=== PATIENT | male | born 1950 | race Caucasian/White ===

== ENCOUNTER 2020-06-11 12:03 | Inpatient (IN) | payer OTHER ==
[~2020-06-11] VITALS: Ht 185.5 cm; Wt 114.8 kg
--- NOTE | 2020-06-11 12:42 | ED Respiratory ---
General Chief Complaint: Respiratory Problems Stated Complaint: SOB; AMS Source: patient, police Exam Limitations: no limitations History of Present Illness Date Seen by Provider: Jun 11, 2020 Time Seen by Provider: 12:30 Initial Comments 69-year-old male presents with law enforcement from intermediate where he is been inmate for 4 years. Tested positive for COVID-19 about one week ago. Today noted to have "abnormal vital signs", low oxygen saturation. Patient without complaint of cough or shortness of air, but complains of heartburn. Initial oxygen saturations on room air fluctuate from mid 80s to low 90s on initial evaluation. Allergies and Home Medications Allergies Coded Allergies: No Known Drug Allergies (Unverified , 06/11/20) Home Medications Famotidine 20 Mg Tablet, 20 MG PO DAILY, (Reported) Hydrochlorothiazide 12.5 Mg Tablet, 12.5 MG PO BID, (Reported) Lisinopril 10 Mg Tablet, 10 MG PO BID, (Reported) Multivitamin 1 Each Tablet, 1 EACH PO DAILY, (Reported) Olanzapine 10 Mg Tablet, 10 MG PO HS, (Reported) Pantoprazole Sodium 40 Mg Tablet.dr, 40 MG PO BID, (Reported) Tamsulosin HCl 0.4 Mg Cap, 0.4 MG PO BID, (Reported) Patient Home Medication List Home Medication List Reviewed: Yes Review of Systems Review of Systems Constitutional: No chills, No dizziness, No fever, No malaise, No weakness EENTM: no symptoms reported Respiratory: no symptoms reported; No cough, No short of breath Cardiovascular: No chest pain, No syncope Gastrointestinal: No abdominal pain, No constipation, No diarrhea; heartburn; No vomiting Musculoskeletal: No back pain, No joint pain Past Halcnjo-Vhkhkl-Qygsls Hx Past Med/Social Hx: Reviewed Nursing Past Med/Soc Hx Patient Social History Recent Foreign Travel: No Contact w/Someone Who Travel: No Physical Exam Vital Signs - First Documented 06/11/20 12:15 Temp 35.8 Pulse 88 Resp 20 B/P (MAP) 96/69 (78) Pulse Ox 88 O2 Delivery Nasal Cannula O2 Flow Rate 2.00 Capillary Refill : Height: '" Weight: lbs. oz. kg; BMI Method: General Appearance: WD/WN, no apparent distress HEENT: PERRL/EOMI, normal ENT inspection Respiratory: chest non-tender, lungs clear, normal breath sounds Cardiovascular: regular rate, rhythm, no edema, no JVD Gastrointestinal: normal bowel sounds, non tender, soft Extremities: normal range of motion, non-tender Neurologic/Psychiatric: no motor/sensory deficits, alert, normal mood/affect Skin: normal color, warm/dry Focused Exam Lactate Level 06/11/20 12:33: Lactic Acid Level 1.34 Lactic Acid Level Laboratory Tests Test 06/11/20 12:33 Lactic Acid Level 1.34 MMOL/L (0.50-2.00) Progress/Results/Core Measures Suspected Sepsis SIRS Temperature: Pulse: Respiratory Rate: Laboratory Tests 06/11/20 12:33: White Blood Count 4.5 Blood Pressure / Mean: 06/11/20 12:33: Lactic Acid Level 1.34 Laboratory Tests 06/11/20 12:33: Creatinine 1.86H, Platelet Count 191, Total Bilirubin 0.4 Results/Orders Lab Results Laboratory Tests Test 06/11/20 12:33 Range/Units White Blood Count 4.5 4.3-11.0 10^3/uL Red Blood Count 4.34 L 4.35-5.85 10^6/uL Hemoglobin 12.7 L 13.3-17.7 G/DL Hematocrit 38 L 40-54 % Mean Corpuscular Volume 88 80-99 FL Mean Corpuscular Hemoglobin 29 25-34 PG Mean Corpuscular Hemoglobin Concent 33 32-36 G/DL Red Cell Distribution Width 13.9 10.0-14.5 % Platelet Count 191 130-400 10^3/uL Mean Platelet Volume 10.8 H 7.4-10.4 FL Immature Granulocyte % (Auto) 0 % Neutrophils (%) (Auto) 72 42-75 % Lymphocytes (%) (Auto) 14 12-44 % Monocytes (%) (Auto) 13 H 0-12 % Eosinophils (%) (Auto) 0 0-10 % Basophils (%) (Auto) 0 0-10 % Neutrophils # (Auto) 3.2 1.8-7.8 X 10^3 Lymphocytes # (Auto) 0.6 L 1.0-4.0 X 10^3 Monocytes # (Auto) 0.6 0.0-1.0 X 10^3 Eosinophils # (Auto) 0.0 0.0-0.3 10^3/uL Basophils # (Auto) 0.0 0.0-0.1 10^3/uL Immature Granulocyte # (Auto) 0.0 0.0-0.1 10^3/uL Sodium Level 133 L 135-145 MMOL/L Potassium Level 3.8 3.6-5.0 MMOL/L Chloride Level 97 L 98-107 MMOL/L Carbon Dioxide Level 21 21-32 MMOL/L Anion Gap 15 H 5-14 MMOL/L Blood Urea Nitrogen 32 H 7-18 MG/DL Creatinine 1.86 H 0.60-1.30 MG/DL Estimat Glomerular Filtration Rate 36 BUN/Creatinine Ratio 17 Glucose Level 144 H 70-105 MG/DL Lactic Acid Level 1.34 0.50-2.00 MMOL/L Calcium Level 7.8 L 8.5-10.1 MG/DL Corrected Calcium 8.4 L 8.5-10.1 MG/DL Total Bilirubin 0.4 0.1-1.0 MG/DL Aspartate Amino Transf (AST/SGOT) 38 H 5-34 U/L Alanine Aminotransferase (ALT/SGPT) 23 0-55 U/L Alkaline Phosphatase 72 40-136 U/L C-Reactive Protein 6.25 H <0.50 MG/DL Total Protein 6.6 6.4-8.2 GM/DL Albumin 3.3 3.2-4.5 GM/DL Micro Results Microbiology 06/11/20 Influenza Types A,B Antigen (DEBORAH) - Final, Complete My Orders Orders - NICOLE RAMIREZ DO Cbc With Automated Diff (06/11/20 12:35) Comprehensive Metabolic Panel (06/11/20 12:35) Influenza A And B Antigens (06/11/20 12:35) Lactic Acid Analyzer (06/11/20 12:35) Procalcitonin (Pct) (06/11/20 12:35) Chest 1 View Ap/Pa Only (06/11/20 12:35) Ed Iv/Invasive Line Start (06/11/20 12:35) Crp Fs (06/11/20 12:33) Dexamethasone Injection (Decadron Inje (06/11/20 13:15) Vital Signs/I&O 06/11/20 06/11/20 12:15 12:15 Temp 35.8 Pulse 88 Resp 20 B/P (MAP) 96/69 (78) Pulse Ox 88 O2 Delivery Nasal Cannula Room Air O2 Flow Rate 2.00 Capillary Refill : Diagnostic Imaging Diagonstic Imaging: Xray Plain Films/CT/US/NM/MRI: chest Comments IMP: patchy b/l airspace densities c/w pneumonia Departure Communication (Admissions) Time/Spoke to Admitting Phy: 13:15 Dr Delgado accepts for transfer/ admit to [facility] Impression Primary Impression: Pneumonia Qualified Codes: J18.9 - Pneumonia, unspecified organism Additional Impression: Hypoxia Disposition: ADMITTED INPATIENT Condition: Stable Admissions Decision to Admit Reason: Admit from ER (General) Decision to Admit/Date: Jun 11, 2020 Time/Decision to Admit Time: 13:00 NICOLE RAMIREZ DO Jun 11, 2020 12:42
[2020-06-11 12:44] LABS: BASOPHILS % (AUTO) 0 % (0-10); EOSINOPHILS % (AUTO) 0 % (0-10); HEMATOCRIT 38 % (40-54); HEMOGLOBIN 12.7 G/DL (13.3-17.7); LYMPHOCYTES # (AUTO) 0.6 X 10^3 (1.0-4.0); LYMPHOCYTES % (AUTO) 14 % (12-44); MEAN CORPUSCULAR HEMOGLOBIN 29 PG (25-34); MEAN CORPUSCULAR HGB CONC 33 G/DL (32-36); MEAN CORPUSCULAR VOLUME 88 FL (80-99); MEAN PLATELET VOLUME 10.8 FL (7.4-10.4); MONOCYTES # (AUTO) 0.6 X 10^3 (0.0-1.0); MONOCYTES % (AUTO) 13 % (0-12); NEUTROPHILS # (AUTO) 3.2 X 10^3 (1.8-7.8); NEUTROPHILS % (AUTO) 72 % (42-75); PLATELET COUNT 191 10^3/uL (130-400); WHITE BLOOD COUNT 4.5 10^3/uL (4.3-11.0)
--- NOTE | 2020-06-11 13:00 | NUR ---
REPORT GIVEN TO JAYY GONZALEZ.
--- NOTE | 2020-06-11 13:02 | Diagnostic Imaging Report ---
INDICATION: Shortness of breath and hypoxia. Time of exam 12:51 p.m. No prior studies are available for comparison. The heart size is normal. There are patchy airspace infiltrates in the periphery of the bilateral upper and lower lung worley suggestive of pneumonia. No effusion or pneumothorax is detected. IMPRESSION: Patchy bilateral airspace infiltrates consistent with pneumonia. Dictated by: Dictated on workstation # [id number]
[2020-06-11 13:05] LABS: ALBUMIN 3.3 GM/DL (3.2-4.5); BILIRUBIN,TOTAL 0.4 MG/DL (0.1-1.0); CALCIUM 7.8 MG/DL (8.5-10.1); CREATININE SERUM 1.86 MG/DL (0.60-1.30); POTASSIUM 3.8 MMOL/L (3.6-5.0); TOTAL PROTEIN 6.6 GM/DL (6.4-8.2)
[2020-06-11 15:31] VITALS: BP 94/59
[2020-06-11 15:35] VITALS: BP 94/54
[2020-06-11] MEDS ORDERED: ANTACID SUSP 30 ML UDC (MYLANTA) PO PRN (17:15)
[2020-06-11] MEDS ORDERED: diphenhydrAMINE 25 MG TAB (BENADRYL) PO PRN (17:15)
[2020-06-11] MEDS ORDERED: BISACODYL 10 MG SUPP (DULCOLAX) PR PRN (17:15)
[2020-06-11] MEDS ORDERED: ONDANSETRON 4 MG/2 ML (SDV) Z0FRAN IV PRN (17:15)
[2020-06-11] MEDS ORDERED: polyethylene glycoL POWDER 17 GM (MIRALAX) PACK PO PRN (17:15)
[2020-06-11] MEDS ORDERED: ONDANSETRON 4 MG (ZOFRAN) ORAL DISSOLVE TAB PO PRN (17:15)
[2020-06-11] MEDS: LACTATED RINGERS 1,000 ML IV SCH (17:50)
[2020-06-11] MEDS: ENOXAPARIN 40 MG/0.4 ML (LOVENOX) SYR SC SCH (17:51)
[2020-06-11 19:19] VITALS: BP 99/56
[2020-06-11] MEDS: DOCUSATE SODIUM 100 MG (COLACE) CAP PO SCH (20:49)
[2020-06-11] MEDS: SENNOSIDES 8.6 MG (SENOKOT) TAB PO SCH (20:49)
[2020-06-11] MEDS: MELATONIN 3 MG TABLET PO PRN (20:49)
[2020-06-11] MEDS: inSUlin ASPART (NovoLOG) 1 UNIT/0.01 ML (CHARGE PER UNIT) SC SCH (20:50)
[2020-06-11] MEDS: ACETAMINOPHEN 325 MG TABLET PO PRN (20:50)
[2020-06-11] MEDS ORDERED: LISI10TA2 PO (22:10)
[2020-06-11] MEDS ORDERED: MULT-1136 PO (22:10)
[2020-06-11] MEDS ORDERED: OLAN10TA19 PO (22:10)
[2020-06-11] MEDS ORDERED: FAMO-119 PO (22:10)
[2020-06-11] MEDS ORDERED: TMSL.4C PO (22:10)
[2020-06-11] MEDS ORDERED: HYDR12.56 PO (22:10)
[2020-06-11] MEDS ORDERED: PANT40TA52 PO (22:10)
[2020-06-12 00:02] VITALS: BP 104/58
[2020-06-12] MEDS: LACTATED RINGERS 1,000 ML IV SCH ×3 (02:34→21:37)
[2020-06-12 04:00] VITALS: BP 97/61
[2020-06-12] MEDS: inSUlin ASPART (NovoLOG) 1 UNIT/0.01 ML (CHARGE PER UNIT) SC SCH ×4 (05:48→21:27)
[2020-06-12 06:43] LABS: BASOPHILS % (AUTO) 0 % (0-10); EOSINOPHILS % (AUTO) 0 % (0-10); HEMATOCRIT 38 % (40-54); HEMOGLOBIN 12.5 g/dL (13.3-17.7); LYMPHOCYTES # (AUTO) 0.6 10^3/uL (1.0-4.0); LYMPHOCYTES % (AUTO) 19 % (12-44); MEAN CORPUSCULAR HEMOGLOBIN 30 pg (25-34); MEAN CORPUSCULAR HGB CONC 33 g/dL (32-36); MEAN CORPUSCULAR VOLUME 89 fL (80-99); MEAN PLATELET VOLUME 10.8 fL (9.0-12.2); MONOCYTES # (AUTO) 0.2 10^3/uL (0.0-1.0); MONOCYTES % (AUTO) 7 % (0-12); NEUTROPHILS # (AUTO) 2.4 10^3/uL (1.8-7.8); NEUTROPHILS % (AUTO) 73 % (42-75); PLATELET COUNT 189 10^3/uL (130-400); WHITE BLOOD COUNT 3.3 10^3/uL (4.3-11.0)
[2020-06-12 07:01] LABS: ALBUMIN 3.4 GM/DL (3.2-4.5)
[2020-06-12 07:02] LABS: POTASSIUM 3.8 MMOL/L (3.6-5.0)
[2020-06-12 07:03] LABS: CALCIUM 7.9 MG/DL (8.5-10.1)
[2020-06-12 07:04] LABS: TOTAL PROTEIN 6.3 GM/DL (6.4-8.2)
[2020-06-12 07:06] LABS: BILIRUBIN,TOTAL 0.4 MG/DL (0.1-1.0)
[2020-06-12 07:08] LABS: CREATININE SERUM 2.78 MG/DL (0.60-1.30)
[2020-06-12 08:00] VITALS: BP 119/56
[2020-06-12] MEDS ORDERED: AZITHROMYCIN 250 MG TAB (ZITHROMAX) PO ONE (08:15)
[2020-06-12] MEDS ORDERED: cefTRIAXone 1,000 MG IV (ROCEPHIN) VIAL ONE (08:26)
[2020-06-12] MEDS ORDERED: WATER (STERILE) FOR INJECTION 20 ML ONE (08:31)
[2020-06-12] MEDS: SENNOSIDES 8.6 MG (SENOKOT) TAB PO SCH ×2 (09:00→21:27)
[2020-06-12] MEDS ORDERED: LIDOCAINE JELLY 2% 6 ML SYRINGE ONE (10:23)
[2020-06-12] MEDS: DOCUSATE SODIUM 100 MG (COLACE) CAP PO SCH ×2 (10:36→21:27)
[2020-06-12] MEDS: cefTRIAXone FOR IV USE 2,000 MG in WATER (STERILE) FOR INJECTION 20 ML IV SCH (10:36)
[2020-06-12] MEDS ORDERED: dexAMETHasone 6 MG TAB (DECADRON) ONE (10:38)
[2020-06-12] MEDS: PANTOPRAZOLE 40 MG (PROTONIX) TAB PO SCH (10:46)
--- NOTE | 2020-06-12 11:16 | History & Physical-Hospitalist ---
History of Present Illness HPI/Chief Complaint Inderjit Menard is a 69-year-old incarcerated male with past medical history of hypertension, GERD, who presented from retirement after testing positive for COVID- 19 about a week ago and subsequently developed low oxygen saturations. He denies any shortness of breath. He denies any cough. He denies any fevers. He has not been able to smell or taste. He has been eating and drinking. He has been up and moving around. He reports that he had been having diarrhea previously but this is resolved. He denies any nausea or vomiting. He denies any abdominal pain. Source: patient Exam Limitations: no limitations Date Seen 06/12/20 Time Seen by a Provider: 09:40 Attending Physician Javier Ortiz MD PCP No,Local Physician Referring Physician Date of Admission Jun 11, 2020 at 14:56 Home Medications & Allergies Home Medications Reviewed patient Home Medication Reconciliation performed by pharmacy medication reconciliations physical therapy technician and/or nursing. Patients Allergies have been reviewed. Allergies Allergies Coded Allergies No Known Drug Allergies ([id number]/16/20) Past Xpqucmy-Lofzxq-Tedbba Hx Past Med/Social Hx: Reviewed Nursing Past Med/Soc Hx Patient Social History Alcohol Use: Denies Use Recreational Drug Use: No Smoking Status: Former Smoker Recent Hopitalizations: No Recent Infectious Disease Expo: Yes (COVID19) Seasonal Allergies Seasonal Allergies: No Past Medical History Cardiac: Hypertension Gastrointestinal: Gastroesophageal Reflux Review of Systems Constitutional: no symptoms reported EENTM: no symptoms reported Respiratory: no symptoms reported Cardiovascular: no symptoms reported Gastrointestinal: diarrhea Genitourinary: decreased output Musculoskeletal: no symptoms reported Skin: no symptoms reported Psychiatric/Neurological: No Symptoms Reported Physical Exam Physical Exam Vital Signs Vital Signs - First Documented 06/11/20 12:15 Temp 35.8 Pulse 88 Resp 20 B/P (MAP) 96/69 (78) Pulse Ox 88 O2 Delivery Nasal Cannula O2 Flow Rate 2.00 Capillary Refill : Less Than 3 Seconds Height, Weight, BMI Height: '" Weight: lbs. oz. kg; 33.36 BMI Method: General Appearance: No Apparent Distress, Obese HEENT: PERRL/EOMI, Pharynx Normal Neck: Normal Inspection, Supple Respiratory: Lungs Clear, Normal Breath Sounds, No Respiratory Distress Cardiovascular: Regular Rate, Rhythm, No Edema, No Murmur Gastrointestinal: Normal Bowel Sounds, Non Tender, Soft Extremity: Normal Inspection, Non Tender, No Pedal Edema Neurologic/Psychiatric: Alert, Oriented x3, No Motor/Sensory Deficits, Other (flat affect) Skin: Normal Color, Warm/Dry Results Results/Procedures Labs Laboratory Tests 06/11/20 12:33 06/12/20 06:20 Patient resulted labs reviewed. Imaging: Reviewed Imaging Report Assessment/Plan Admission Diagnosis Acute respiratory failure due to COVID-19 Admission Status: Inpatient Order (span 2 midnights) Reason for Inpatient Admission: Respiratory failure requiring oxygen ROMANA on CKD Assessment and Plan Acute respiratory failure due to COVID-19 Bilateral pneumonia tested positive about one week ago Chest xray with bilateral pneumonia Procalcitonin 0.38 requiring supplemental oxygen on arrival, on room air upon my examination Started on Decadron Not a candidate for Remdesivir due to normal O2 saturations Hold off on convalescent plasma with no hypoxia or dyspnea Started on Rocephin and Azithromycin for bacterial pneumonia Lovenox prophylactic Acute kidney injury superimposed on chronic kidney disease Unknown baseline creatinine Cr 1.86 on arrival, trended up to 2.78 this morning Begin IV fluids Obtain urine studies Place bhagat for accurate intake/output Avoid nephrotoxins HTN BP low normal Hold home meds GERD PPI Obesity BMI 33.4, clinically significant, no acute management needs DVT Prophylaxis: Lovenox Diagnosis/Problems Diagnosis/Problems (1) Acute respiratory failure due to COVID-19 Status: Acute (2) Bilateral pneumonia Status: Acute Qualifiers: Pneumonia type: due to unspecified organism Lung location: unspecified part of lung Qualified Codes: J18.9 - Pneumonia, unspecified organism (3) Acute kidney injury superimposed on chronic kidney disease Status: Acute (4) HTN (hypertension) Status: Chronic Qualifiers: Hypertension type: essential hypertension Qualified Codes: I10 - Essential (primary) hypertension (5) GERD (gastroesophageal reflux disease) Status: Chronic Qualifiers: Esophagitis presence: esophagitis presence not specified Qualified Codes: K21.9 - Gastro-esophageal reflux disease without esophagitis (6) Obesity (BMI 30.0-34.9) Status: Chronic Clinical Quality Measures DVT/VTE Risk/Contraindication: Risk Factor Score Per Nursin RFS Level Per Nursing on Admit: 4+=Very High JAVIER ORTIZ MD Jun 12, 2020 11:16
[2020-06-12 12:00] VITALS: BP 114/64
[2020-06-12 12:28] LABS: BILIRUBIN,URINE 1+ (NEGATIVE); CLARITY,URINE CLOUDY; COLOR,URINE YELLOW; GLUCOSE, URINE (UA) NEGATIVE (NEGATIVE); KETONES,URINE NEGATIVE (NEGATIVE); LEUKOCYTE ESTERASE ,URINE NEGATIVE (NEGATIVE); NITRITE,URINE NEGATIVE (NEGATIVE); PROTEIN,URINE NEGATIVE (NEGATIVE)
[2020-06-12 12:40] LABS: AMORPHOUS SEDIMENT,UR FEW AMOR URATES /LPF; BACTERIA,URINE MODERATE /HPF; WBC,URINE 0-2 /HPF
[2020-06-12 16:59] VITALS: BP 105/59
[2020-06-12] MEDS: ENOXAPARIN 40 MG/0.4 ML (LOVENOX) SYR SC SCH (17:55)
[2020-06-12] MEDS: MELATONIN 3 MG TABLET PO PRN (21:27)
[2020-06-13 00:25] VITALS: BP 100/67
[2020-06-13 05:47] LABS: BASOPHILS % (AUTO) 0 % (0-10); EOSINOPHILS % (AUTO) 0 % (0-10); HEMATOCRIT 34 % (40-54); HEMOGLOBIN 11.2 g/dL (13.3-17.7); LYMPHOCYTES # (AUTO) 0.6 10^3/uL (1.0-4.0); LYMPHOCYTES % (AUTO) 6 % (12-44); MEAN CORPUSCULAR HEMOGLOBIN 29 pg (25-34); MEAN CORPUSCULAR HGB CONC 33 g/dL (32-36); MEAN CORPUSCULAR VOLUME 87 fL (80-99); MEAN PLATELET VOLUME 11.3 fL (9.0-12.2); MONOCYTES # (AUTO) 0.8 10^3/uL (0.0-1.0); MONOCYTES % (AUTO) 7 % (0-12); NEUTROPHILS # (AUTO) 8.8 10^3/uL (1.8-7.8); NEUTROPHILS % (AUTO) 86 % (42-75); PLATELET COUNT 219 10^3/uL (130-400); WHITE BLOOD COUNT 10.3 10^3/uL (4.3-11.0)
[2020-06-13 06:06] LABS: ALBUMIN 2.9 GM/DL (3.2-4.5); BILIRUBIN,TOTAL 0.3 MG/DL (0.1-1.0); CALCIUM 7.6 MG/DL (8.5-10.1); CREATININE SERUM 2.25 MG/DL (0.60-1.30); POTASSIUM 4.1 MMOL/L (3.6-5.0); TOTAL PROTEIN 5.7 GM/DL (6.4-8.2)
[2020-06-13 06:21] LABS: ATYPICAL LYMPHOCYTES 2 %; BURR CELLS SLIGHT; HYPOCHROMASIA SLIGHT; LYMPHOCYTES % (MANUAL) 10 %; MICROCYTOSIS SLIGHT; MONOCYTES % (MANUAL) 6 %; NEUTROPHILS % (MANUAL) 82 %
[2020-06-13] MEDS: dexAMETHasone 6 MG TAB (DECADRON) PO SCH (06:25)
[2020-06-13] MEDS: inSUlin ASPART (NovoLOG) 1 UNIT/0.01 ML (CHARGE PER UNIT) SC SCH ×4 (06:25→22:24)
[2020-06-13] MEDS: cefTRIAXone FOR IV USE 2,000 MG in WATER (STERILE) FOR INJECTION 20 ML IV SCH (07:30)
[2020-06-13] MEDS: AZITHROMYCIN 250 MG TAB (ZITHROMAX) PO SCH (07:30)
[2020-06-13] MEDS: LACTATED RINGERS 1,000 ML IV SCH ×2 (07:30→17:25)
[2020-06-13] MEDS: SENNOSIDES 8.6 MG (SENOKOT) TAB PO SCH ×2 (07:30→20:20)
[2020-06-13] MEDS: DOCUSATE SODIUM 100 MG (COLACE) CAP PO SCH ×2 (07:30→20:20)
[2020-06-13] MEDS: PANTOPRAZOLE 40 MG (PROTONIX) TAB PO SCH (07:30)
[2020-06-13 08:00] VITALS: BP 114/76
--- NOTE | 2020-06-13 11:59 | Progress Note - Hospitalist ---
Subjective HPI/CC On Admission Date Seen by Provider: Jun 13, 2020 Time Seen by Provider: 10:40 Inderjit Menard is a 69-year-old incarcerated male with past medical history of hypertension, GERD, who presented from snf after testing positive for COVID- 19 about a week ago and subsequently developed low oxygen saturations. He de nies any shortness of breath. He denies any cough. He denies any fevers. He has not been able to smell or taste. He has been eating and drinking. He has been up and moving around. He reports that he had been having diarrhea previously but this is resolved. He denies any nausea or vomiting. He denies any abdominal pain. Subjective/Events-last exam He denies shortness of breath. He has been eating and drinking. He still has the bhagat in and is reluctant about it coming out. Focused Exam Lactate Level 06/11/20 12:33: Lactic Acid Level 1.34 Objective Exam Vital Signs Vital Signs Date Time Temp Pulse Resp B/P (MAP) Pulse Ox O2 Delivery O2 Flow Rate FiO2 06/13/20 08:00 36.6 77 20 114/76 (89) 95 High Flow N/C 8.00 Capillary Refill : NONELess Than 3 Seconds General Appearance: No Apparent Distress, WD/WN Respiratory: Lungs Clear, Normal Breath Sounds, No Respiratory Distress Cardiovascular: Regular Rate, Rhythm, No Edema, No Murmur Gastrointestinal: Normal Bowel Sounds, Non Tender, Soft Extremity: Normal Inspection, Non Tender, No Pedal Edema Neurologic/Psychiatric: Alert, Oriented x3, No Motor/Sensory Deficits, Other (flat affect) Skin: Normal Color, Warm/Dry Results/Procedures Lab Laboratory Tests 06/13/20 05:20 Patient resulted labs reviewed. Imaging: Reviewed Imaging Report Assessment/Plan Assessment and Plan Assess & Plan/Chief Complaint Acute respiratory failure due to COVID-19 Bilateral pneumonia Continue Decadron Not a candidate for Remdesivir due to normal O2 saturations Hold off on convalescent plasma with no hypoxia or dyspnea Continue Rocephin and Azithromycin for bacterial pneumonia Likely transition to oral antibiotics tomorrow Lovenox prophylactic Acute kidney injury superimposed on chronic kidney disease Unknown baseline creatinine Cr 1.86 on arrival, trended up to 2.78 yesterday, down to 2.25 today Continue IV fluids Remove bhagat Avoid nephrotoxins Elevated blood sugar Steroid induced hyperglycemia A1C pending SSI HTN BP low normal Hold home meds GERD PPI Obesity BMI 33.4, clinically significant, no acute management needs DVT Prophylaxis: Lovenox Diagnosis/Problems Diagnosis/Problems (1) Acute respiratory failure due to COVID-19 Status: Acute (2) Bilateral pneumonia Status: Acute Qualifiers: Pneumonia type: due to unspecified organism Lung location: unspecified part of lung Qualified Codes: J18.9 - Pneumonia, unspecified organism (3) Acute kidney injury superimposed on chronic kidney disease Status: Acute (4) HTN (hypertension) Status: Chronic Qualifiers: Hypertension type: essential hypertension Qualified Codes: I10 - Essential (primary) hypertension (5) GERD (gastroesophageal reflux disease) Status: Chronic Qualifiers: Esophagitis presence: esophagitis presence not specified Qualified Codes: K21.9 - Gastro-esophageal reflux disease without esophagitis (6) Obesity (BMI 30.0-34.9) Status: Chronic Clinical Quality Measures DVT/VTE Risk/Contraindication: Risk Factor Score Per Nursin RFS Level Per Nursing on Admit: 4+=Very High JAVIER ORTIZ MD Jun 13, 2020 11:59
--- NOTE | 2020-06-13 12:36 | NUR ---
DIANA RN FUNCTIONAL NURSE REMOVED [facility]MAN FOR THIS RN. PATIENT TOLERATED WELL.
[2020-06-13 16:15] VITALS: BP 111/55
[2020-06-13] MEDS: ENOXAPARIN 40 MG/0.4 ML (LOVENOX) SYR SC SCH (17:25)
[2020-06-13] MEDS: ACETAMINOPHEN 325 MG TABLET PO PRN (22:24)
[2020-06-13] MEDS: MELATONIN 3 MG TABLET PO PRN (22:29)
[2020-06-13 23:34] VITALS: BP 137/69
[2020-06-14] MEDS: LACTATED RINGERS 1,000 ML IV SCH (03:34)
[2020-06-14 04:26] LABS: BASOPHILS % (AUTO) 0 % (0-10); EOSINOPHILS % (AUTO) 0 % (0-10); HEMATOCRIT 33 % (40-54); HEMOGLOBIN 11.3 g/dL (13.3-17.7); LYMPHOCYTES # (AUTO) 0.6 10^3/uL (1.0-4.0); LYMPHOCYTES % (AUTO) 6 % (12-44); MEAN CORPUSCULAR HEMOGLOBIN 30 pg (25-34); MEAN CORPUSCULAR HGB CONC 34 g/dL (32-36); MEAN CORPUSCULAR VOLUME 87 fL (80-99); MEAN PLATELET VOLUME 11.1 fL (9.0-12.2); MONOCYTES # (AUTO) 0.8 10^3/uL (0.0-1.0); MONOCYTES % (AUTO) 8 % (0-12); NEUTROPHILS # (AUTO) 8.5 10^3/uL (1.8-7.8); NEUTROPHILS % (AUTO) 86 % (42-75); PLATELET COUNT 251 10^3/uL (130-400); WHITE BLOOD COUNT 9.9 10^3/uL (4.3-11.0)
[2020-06-14 04:34] LABS: ALBUMIN 3.1 GM/DL (3.2-4.5); POTASSIUM 3.9 MMOL/L (3.6-5.0)
[2020-06-14 04:35] LABS: CALCIUM 7.5 MG/DL (8.5-10.1)
[2020-06-14 04:37] LABS: TOTAL PROTEIN 5.7 GM/DL (6.4-8.2)
[2020-06-14 04:38] LABS: BILIRUBIN,TOTAL 0.3 MG/DL (0.1-1.0)
[2020-06-14 04:40] LABS: CREATININE SERUM 1.71 MG/DL (0.60-1.30)
[2020-06-14] MEDS: inSUlin ASPART (NovoLOG) 1 UNIT/0.01 ML (CHARGE PER UNIT) SC SCH ×2 (05:03→12:40)
[2020-06-14] MEDS: dexAMETHasone 6 MG TAB (DECADRON) PO SCH (05:56)
[2020-06-14 08:00] VITALS: BP 130/60
[2020-06-14] MEDS: AZITHROMYCIN 250 MG TAB (ZITHROMAX) PO SCH (08:52)
[2020-06-14] MEDS: PANTOPRAZOLE 40 MG (PROTONIX) TAB PO SCH (08:52)
[2020-06-14] MEDS: SENNOSIDES 8.6 MG (SENOKOT) TAB PO SCH (08:52)
[2020-06-14] MEDS: cefTRIAXone FOR IV USE 2,000 MG in WATER (STERILE) FOR INJECTION 20 ML IV SCH (08:52)
[2020-06-14] MEDS: DOCUSATE SODIUM 100 MG (COLACE) CAP PO SCH (08:53)
[2020-06-14] MEDS ORDERED: CEPH-507 PO (09:24)
[2020-06-14] MEDS ORDERED: AZIT250T12 PO (09:24)
--- NOTE | 2020-06-14 09:32 | Discharge Inst-Simple/Standard ---
Discharge Inst-Standard Discharge Medications New, Converted or Re-Newed RX: Transmitted to Pharmacy Patient Instructions/Follow Up Plan of Care/Instructions/FU: Please continue to take your medications as written. Please follow up with your primary care doctor to follow up this hospital stay. Activity as Tolerated: Yes Discharge Diet: No Restrictions Return to The Hospital For: Chest pain, fever, shortness of breath, abdominal pain, if you feel you are getting worse. Planned Outpatient Orders/Ref. Pneu Vac Indicated: Yes TIANA LIZARRAGA MD Jun 14, 2020 09:32
--- NOTE | 2020-06-14 09:51 | NUR ---
I WAS ABLE TO TALK TO A NURSE FROM [facility] AND G0T A CURRENT LIST OF MEDICATIONS THAT THEY FILL THERE. MULTI VITAMIN PANTOPRAZOLE 40MG TAMSULOSIN 0.4MG PEPCID 20MG THE MEDICATIONS GET FILLED AT THE LONGTERM UNLESS THEY DON'T HAVE THEM ON STOCK MEDS, IN THAT CASE THEY WOULD GET THEM FILLED AT [facility] IN [place].
--- NOTE | 2020-06-14 13:06 | Discharge Summary ---
Diagnosis/Chief Complaint Date of Admission Jun 11, 2020 at 14:56 Date of Discharge Discharge Date: Jun 14, 2020 Admission Diagnosis Acute respiratory failure due to COVID-19 Primary Care No,Local Physician Discharge Diagnosis (1) Acute respiratory failure due to COVID-19 Status: Acute (2) Bilateral pneumonia Status: Acute (3) Acute kidney injury superimposed on chronic kidney disease Status: Acute (4) HTN (hypertension) Status: Chronic (5) GERD (gastroesophageal reflux disease) Status: Chronic (6) Obesity (BMI 30.0-34.9) Status: Chronic Discharge Summary Discharge Physical Exam Allergies: Coded Allergies: No Known Drug Allergies (Unverified , 06/11/20) Vitals & I&Os Vital Signs Date Time Temp Pulse Resp B/P (MAP) Pulse Ox O2 Delivery O2 Flow Rate FiO2 06/14/20 08:00 36.9 84 18 130/60 (83) 92 Room Air 06/13/20 23:25 2.00 General Appearance: No Apparent Distress, Chronically ill Respiratory: Lungs Clear, No Respiratory Distress Cardiovascular: Regular Rate, Rhythm, No Murmur Neurologic/Psychiatric: Alert, Oriented x3 Hospital Course Pt was admitted due to acute kidney injury and COVID19. He was treated with IVF and did well. He had normal oxygen saturations and did not qualify for Remdesivir. He was treated with decadron and IV abx for presumed secondary bacterial pneumonia. He did well and his creatinine improved. He was discharged in stable and improved condition. Labs (last 24 hrs) Microbiology 06/11/20 Blood Culture - Preliminary, Resulted No growth 06/11/20 Influenza Types A,B Antigen (DEBORAH) - Final, Complete Patient resulted labs reviewed. Pending Labs Imaging: Reviewed Imaging Report Discussion & Recommendations Discharge Planning: >30 minutes discharge planning Discharge Home Medications: Active Scripts Active Keflex (Cephalexin) 500 Mg Capsule 500 Mg PO BID Azithromycin 250 Mg Tablet 250 Mg PO DAILY Reported Pepcid (Famotidine) 20 Mg Tablet 20 Mg PO DAILY Multivitamin 1 Each Tablet 1 Each PO DAILY Hydrochlorothiazide 12.5 Mg Tablet 12.5 Mg PO BID Pantoprazole Sodium 40 Mg Tablet.dr 40 Mg PO BID Flomax (Tamsulosin HCl) 0.4 Mg Cap 0.4 Mg PO BID Instructions to patient/family Please see electronic discharge instructions given to patient. Clinical Quality Measures DVT/VTE Risk/Contraindication: Risk Factor Score Per Nursin RFS Level Per Nursing on Admit: 4+=Very High Problem Qualifiers (1) Bilateral pneumonia: Pneumonia type: due to unspecified organism Lung location: unspecified part of lung Qualified Codes: J18.9 - Pneumonia, unspecified organism (2) HTN (hypertension): Hypertension type: essential hypertension Qualified Codes: I10 - Essential (primary) hypertension (3) GERD (gastroesophageal reflux disease): Esophagitis presence: esophagitis presence not specified Qualified Codes: K21.9 - Gastro-esophageal reflux disease without esophagitis TIANA LIZARRAGA MD Jun 14, 2020 13:06
== END 2020-06-14 14:00 | DRG 177 ==
LOC: ER FS 12:20 → 4TH 14:56
PROVIDERS: ADMIT Internal Medicine; ATTEND Internal Medicine
DX: U07.1 COVID-19 (principal); J12.89 Other viral pneumonia; J96.01 Acute respiratory failure with hypoxia; N17.9 Acute kidney failure, unspecified; I12.9 Hypertensive chronic kidney disease with stage 1 through stage 4 chronic kidney disease, or unspecified chronic kidney disease; N18.9 Chronic kidney disease, unspecified; K21.9 Gastro-esophageal reflux disease without esophagitis; E66.9 Obesity, unspecified; R73.9 Hyperglycemia, unspecified; Z87.891 Personal history of nicotine dependence; Z68.33 Body mass index [BMI] 33.0-33.9, adult; T38.0X5A Adverse effect of glucocorticoids and synthetic analogues, initial encounter
CPT/HCPCS: 36415; 71045; 80053; 81000; 82570; 82962; 83036; 83605; 83935; 84145; 84300; 84540; 85007; 85025; 85027; 86141; 87040; 87804

== ENCOUNTER 2020-06-14 23:54 | Emergency (ER) | payer OTHER ==
[~2020-06-14] VITALS: Ht 185.4 cm; Wt 97.5 kg
[~2020-06-14 23:54] MED LIST: AZIT250T12 PO; CEPH-507 PO; FAMO-119 PO; HYDR12.56 PO; LISI10TA2 PO; MULT-1136 PO; OLAN10TA19 PO; PANT40TA52 PO; TMSL.4C PO
[2020-06-15] MEDS ORDERED: NS IV 1000 ML 1,000 ML IV STA (00:10)
--- NOTE | 2020-06-15 00:14 | ED General ---
General Stated Complaint: CHEST PAIN Source of Information: Patient, Old Records, Police, RN/MD, RN Notes Reviewed Exam Limitations: Other (confusion) History of Present Illness Date Seen by Provider: Jun 15, 2020 Time Seen by Provider: 00:05 Initial Comments This patient presents to the emergency department several to 69-year-old male that complains of some confusion and concerns for palpitations and fever. Patient was diagnosed with COVID-19 approximately 2 weeks ago. Patient resides in the formerly [facility] half-way. Awaiting trial. Patient appears to be confused. protective officer states that the patient seems to be less talkative over the past couple hours. They state no fever at the half-way but upon arrival to the emergency Department did have a fever but 100.1. We'll do medical evaluation treatment is needed. Patient has no cough or no shortness of breath. Timing/Duration: 1-3 Hours Severity: Moderate Associated Systoms: Fever/Chills Allergies and Home Medications Allergies Coded Allergies: No Known Drug Allergies (Unverified , 06/11/20) Home Medications Azithromycin 250 Mg Tablet, 250 MG PO DAILY Prescribed by: TIANA LIZARRAGA on 06/14/20923 Cephalexin 500 Mg Capsule, 500 MG PO BID Prescribed by: TIANA LIZARRAGA on 06/14/20923 Famotidine 20 Mg Tablet, 20 MG PO DAILY, (Reported) Hydrochlorothiazide 12.5 Mg Tablet, 12.5 MG PO BID, (Reported) Multivitamin 1 Each Tablet, 1 EACH PO DAILY, (Reported) Pantoprazole Sodium 40 Mg Tablet.dr, 40 MG PO BID, (Reported) Tamsulosin HCl 0.4 Mg Cap, 0.4 MG PO BID, (Reported) Patient Home Medication List Home Medication List Reviewed: Yes Review of Systems Review of Systems Constitutional: no symptoms reported; No see HPI, No chills, No diaphoresis, No dizziness; fever; No malaise, No weakness, No weight gain, No weight loss, No other EENTM: No see HPI, No no symptoms reported, No ear discharge, No hearing loss, No ear pain, No blurred vision, No double vision, No eye pain, No tearing, No v ision loss, No dental problems, No hoarseness, No mouth pain, No mouth swelling, No epistaxis, No nose congestion, No nose pain, No throat pain, No throat swelling, No other Respiratory: No no symptoms reported, No see HPI, No cough, No dyspnea on exertion, No hemoptysis, No orthopnea, No phlegm, No short of breath, No stridor, No wheezing, No other Cardiovascular: No no symptoms reported, No see HPI, No chest pain, No edema, No Hx of Intervention, No palpitations, No syncope, No vascular heart diseas, No other Gastrointestinal: No RUQ, No LUQ, No RLQ, No LLQ, No no symptoms reported, No see HPI, No abdominal pain, No constipation, No diarrhea, No dysphagia, No hematemesis, No heartburn, No jaundice, No loss of appetite, No melena, No nausea, No vomiting, No other Genitourinary: No no symptoms reported, No see HPI, No decreased output, No discharge, No dysuria, No frequency, No hematuria, No hesitancy, No incontinence, No nocturia, No pain, No other Musculoskeletal: No no symptoms reported, No see HPI, No back pain, No gout, No joint pain, No joint swelling, No muscle pain, No muscle stiffness, No muscle cramps, No muscle twitching, No muscle weakness, No neck pain, No other Skin: No no symptoms reported, No see HPI, No change in color, No change in hair/nails, No dryness, No hx of skin cancer, No lesions, No lumps, No pruritus, No rash, No other Psychiatric/Neurological: See HPI, Other (confusion) All Other Systems Reviewed Negative Unless Noted: Yes Past Ghnugwn-Jcvhtu-Lveqno Hx Patient Social History Recent Foreign Travel: No Contact w/Someone Who Travel: No Recent Hopitalizations: No Seasonal Allergies Seasonal Allergies: No Past Medical History Surgeries: No Respiratory: Yes (COVID POSITIVE) Cardiac: Yes Hypertension Neurological: No Genitourinary: No Gastrointestinal: Yes Gastroesophageal Reflux Musculoskeletal: No Endocrine: No HEENT: No Cancer: No Psychosocial: No Integumentary: No Physical Exam Vital Signs Vital Signs - First Documented 06/14/20 23:56 Temp 37.9 Pulse 108 Resp 37 B/P (MAP) 156/91 (112) Pulse Ox 92 O2 Delivery Nasal Cannula Capillary Refill : Height, Weight, BMI Height: '" Weight: lbs. oz. kg; 33.36 BMI Method: General Appearance: No Apparent Distress, WD/WN HEENT: PERRL/EOMI, TMs Normal, Normal ENT Inspection, Pharynx Normal Neck: Full Range of Motion, Normal Inspection, Non Tender, Supple Respiratory: Chest Non Tender, Lungs Clear, Normal Breath Sounds, No Accessory Muscle Use, No Respiratory Distress Cardiovascular: Regular Rate, Rhythm, No Edema, No Gallop, No JVD, No Murmur, Normal Peripheral Pulses Gastrointestinal: Normal Bowel Sounds, No Organomegaly, No Pulsatile Mass, Non Tender, Soft Extremity: No Normal Capillary Refill, No Normal Inspection, No Normal Range of Motion, No Non Tender, No No Calf Tenderness, No No Pedal Edema, No Calf Tenderness, No Inflammation, No Pedal Edema, No Pelvis Stable, No Slow Capillary Refill, No Swelling, No Other Neurologic/Psychiatric: Alert, Disoriented Skin: Normal Color, Warm/Dry Focused Exam Lactate Level 06/15/20 00:25: Lactic Acid Level 2.19*H 06/15/20 02:02: Lactic Acid Level 1.69 Lactic Acid Level Laboratory Tests Test 06/15/20 00:25 06/15/20 02:02 Lactic Acid Level 2.19 MMOL/L (0.50-2.00) *H 1.69 MMOL/L (0.50-2.00) Progress/Results/Core Measures Suspected Sepsis SIRS Temperature: Pulse: Respiratory Rate: Laboratory Tests 06/15/20 00:25: White Blood Count 10.9 Blood Pressure / Mean: 06/15/20 00:25: Lactic Acid Level 2.19*H 06/15/20 02:02: Lactic Acid Level 1.69 Laboratory Tests 06/15/20 00:25: Creatinine 1.76H, Platelet Count 337, Total Bilirubin 0.3 06/15/20 02:02: INR Comment 1.0 Results/Orders Lab Results Laboratory Tests Test 06/15/20 00:25 06/15/20 01:58 06/15/20 02:02 Range/Units White Blood Count 10.9 4.3-11.0 10^3/uL Red Blood Count 4.23 L 4.35-5.85 10^6/uL Hemoglobin 12.6 L 13.3-17.7 G/DL Hematocrit 37 L 40-54 % Mean Corpuscular Volume 87 80-99 FL Mean Corpuscular Hemoglobin 30 25-34 PG Mean Corpuscular Hemoglobin Concent 34 32-36 G/DL Red Cell Distribution Width 13.8 10.0-14.5 % Platelet Count 337 130-400 10^3/uL Mean Platelet Volume 10.7 H 7.4-10.4 FL Immature Granulocyte % (Auto) 1 % Neutrophils (%) (Auto) 82 H 42-75 % Lymphocytes (%) (Auto) 5 L 12-44 % Monocytes (%) (Auto) 12 0-12 % Eosinophils (%) (Auto) 0 0-10 % Basophils (%) (Auto) 0 0-10 % Neutrophils # (Auto) 8.9 H 1.8-7.8 X 10^3 Lymphocytes # (Auto) 0.6 L 1.0-4.0 X 10^3 Monocytes # (Auto) 1.3 H 0.0-1.0 X 10^3 Eosinophils # (Auto) 0.0 0.0-0.3 10^3/uL Basophils # (Auto) 0.0 0.0-0.1 10^3/uL Immature Granulocyte # (Auto) 0.1 0.0-0.1 10^3/uL Sodium Level 141 135-145 MMOL/L Potassium Level 3.8 3.6-5.0 MMOL/L Chloride Level 104 98-107 MMOL/L Carbon Dioxide Level 19 L 21-32 MMOL/L Anion Gap 18 H 5-14 MMOL/L Blood Urea Nitrogen 36 H 7-18 MG/DL Creatinine 1.76 H 0.60-1.30 MG/DL Estimat Glomerular Filtration Rate 38 BUN/Creatinine Ratio 20 Glucose Level 173 H 70-105 MG/DL Lactic Acid Level 2.19 *H 1.69 0.50-2.00 MMOL/L Calcium Level 8.2 L 8.5-10.1 MG/DL Corrected Calcium 8.6 8.5-10.1 MG/DL Total Bilirubin 0.3 0.1-1.0 MG/DL Aspartate Amino Transf (AST/SGOT) 72 H 5-34 U/L Alanine Aminotransferase (ALT/SGPT) 53 0-55 U/L Alkaline Phosphatase 87 40-136 U/L Total Protein 6.7 6.4-8.2 GM/DL Albumin 3.5 3.2-4.5 GM/DL Salicylates Level < 0.3 L 5.0-20.0 MG/DL Urine Color YELLOW Urine Clarity SL CLOUDY Urine pH 5.5 5-9 Urine Specific Wrights >=1.030 1.016-1.022 Urine Protein 2+ H NEGATIVE Urine Glucose (UA) NEGATIVE NEGATIVE Urine Ketones TRACE H NEGATIVE Urine Nitrite NEGATIVE NEGATIVE Urine Bilirubin NEGATIVE NEGATIVE Urine Urobilinogen 0.2 < = 1.0 MG/DL Urine Leukocyte Esterase NEGATIVE NEGATIVE Urine RBC (Auto) 1+ H NEGATIVE Urine RBC 0-2 /HPF Urine WBC NONE /HPF Urine Crystals PRESENT H /LPF Urine Amorphous Sediment MOD REGI URATES H /LPF Urine Bacteria NEGATIVE /HPF Urine Casts NONE /LPF Urine Mucus NEGATIVE /LPF Urine Culture Indicated NO Urine Opiates Screen NEGATIVE NEGATIVE Urine Oxycodone Screen NEGATIVE NEGATIVE Urine Methadone Screen NEGATIVE NEGATIVE Urine Propoxyphene Screen NEGATIVE NEGATIVE Urine Barbiturates Screen NEGATIVE NEGATIVE Ur Tricyclic Antidepressants Screen NEGATIVE NEGATIVE Urine Phencyclidine Screen NEGATIVE NEGATIVE Urine Amphetamines Screen NEGATIVE NEGATIVE Urine Methamphetamines Screen NEGATIVE NEGATIVE Urine Benzodiazepines Screen NEGATIVE NEGATIVE Urine Cocaine Screen NEGATIVE NEGATIVE Urine Cannabinoids Screen NEGATIVE NEGATIVE Prothrombin Time 13.2 12.2-14.7 SEC INR Comment 1.0 0.8-1.4 My Orders Orders - DENNISE FERNANDEZ MD Ed Iv/Invasive Line Start (06/15/20 00:08) Cbc With Automated Diff (06/15/20 00:08) Comprehensive Metabolic Panel (06/15/20 00:08) Drug Screen Stat (Urine) (06/15/20 00:08) Blood Culture (06/15/20 00:08) Lactic Acid Analyzer (06/15/20 00:08) Urinalysis (06/15/20 00:08) Salicylate (06/15/20 00:08) Protime With Inr (06/15/20 00:08) Chest 1 View Ap/Pa Only (06/15/20 00:08) Ekg Tracing (06/15/20 00:08) Ct Head Wo (06/15/20 00:08) Acetaminophen Tablet/Caplet (Tylenol T (06/15/20 00:15) Ns Iv 1000 Ml (Sodium Chloride 0.9%) (06/15/20 00:10) Blood Culture (06/15/20 00:19) Straight Cath (Urinary) (06/15/20 02:06) Medications Given in ED Current Medications Medications Dose Ordered Sig/Lauri Route Start Time Stop Time Status Last Admin Dose Admin Acetaminophen 650 mg ONCE ONCE PO 06/15/20 00:15 06/15/20 00:16 DC 06/15/20 01:17 650 MG Vital Signs/I&O 06/14/20 23:56 Temp 37.9 Pulse 108 Resp 37 B/P (MAP) 156/91 (112) Pulse Ox 92 O2 Delivery Nasal Cannula Capillary Refill : Progress Note : Time: 02:35 Progress Note Negative evaluation in the emergency Department negative finding anything causing acute mental status change. Patient was slightly dehydrated. Second lactic acid is normal. Patient recent COVID infection but that was 2 weeks ago patient has no respiratory symptoms today. Patient is doing well. Nothing to explain the confusion. [facility] They have accepted this patient for Dr. Barnett. He'll be transported shortly. ECG Initial ECG Impression Date: Jun 15, 2020 Initial ECG Impression Time: 00:31 Initial ECG Rate: 111 Initial ECG Rhythm: S.Tach Initial ECG Intervals: Normal Initial ECG Impression: Nonspecific Changes Departure Impression Primary Impression: Mental status change resolved Additional Impression: Dehydration Disposition: 02 XFER SHT-TRM HOSP Condition: Stable Transfer Transfer Reason: Exceeds level of care Time Spoke to Accepting Phy: 02:[address] Barnett hospitalist Transfer Time: 02:37 [facility] Method of Transfer: EMS Departure-Patient Inst. Referrals: NO,LOCAL PHYSICIAN (PCP/Family) Primary Care Physician DENNISE FERNANDEZ MD Jun 15, 2020 00:14
[2020-06-15] MEDS ORDERED: ACETAMINOPHEN 325 MG TABLET PO ONE (00:15)
[2020-06-15 00:37] LABS: BASOPHILS % (AUTO) 0 % (0-10); EOSINOPHILS % (AUTO) 0 % (0-10); HEMATOCRIT 37 % (40-54); HEMOGLOBIN 12.6 G/DL (13.3-17.7); LYMPHOCYTES % (AUTO) 5 % (12-44); MEAN CORPUSCULAR HEMOGLOBIN 30 PG (25-34); MEAN CORPUSCULAR HGB CONC 34 G/DL (32-36); MEAN CORPUSCULAR VOLUME 87 FL (80-99); MEAN PLATELET VOLUME 10.7 FL (7.4-10.4); MONOCYTES % (AUTO) 12 % (0-12); NEUTROPHILS % (AUTO) 82 % (42-75); PLATELET COUNT 337 10^3/uL (130-400); WHITE BLOOD COUNT 10.9 10^3/uL (4.3-11.0)
[2020-06-15 00:38] LABS: LYMPHOCYTES # (AUTO) 0.6 X 10^3 (1.0-4.0); MONOCYTES # (AUTO) 1.3 X 10^3 (0.0-1.0); NEUTROPHILS # (AUTO) 8.9 X 10^3 (1.8-7.8)
[2020-06-15 00:51] LABS: BUN/CREATININE RATIO 20; CALCIUM 8.2 MG/DL (8.5-10.1); CARBON DIOXIDE 19 MMOL/L (21-32); CHLORIDE 104 MMOL/L (98-107); CREATININE SERUM 1.76 MG/DL (0.60-1.30); GFR ESTIMATED 38; GLUCOSE 173 MG/DL (70-105); POTASSIUM 3.8 MMOL/L (3.6-5.0); SODIUM 141 MMOL/L (135-145)
[2020-06-15 00:52] LABS: ALANINE AMINOTRANSFERASE 53 U/L (0-55); ALBUMIN 3.5 GM/DL (3.2-4.5); ALKALINE PHOSPHATASE 87 U/L (40-136); BILIRUBIN,TOTAL 0.3 MG/DL (0.1-1.0); SALICYLATE < 0.3 MG/DL (5.0-20.0); TOTAL PROTEIN 6.7 GM/DL (6.4-8.2)
[2020-06-15 02:19] LABS: AMORPHOUS SEDIMENT,UR MOD AMOR URATES /LPF; BACTERIA,URINE NEGATIVE /HPF; BILIRUBIN,URINE NEGATIVE (NEGATIVE); CLARITY,URINE SL CLOUDY; COLOR,URINE YELLOW; GLUCOSE, URINE (UA) NEGATIVE (NEGATIVE); KETONES,URINE TRACE (NEGATIVE); LEUKOCYTE ESTERASE ,URINE NEGATIVE (NEGATIVE); NITRITE,URINE NEGATIVE (NEGATIVE); PH,URINE 5.5 (5-9); PROTEIN,URINE 2+ (NEGATIVE); RBC,URINE 0-2 /HPF
[2020-06-15 02:20] LABS: AMPHETAMINE SCREEN, URINE NEGATIVE (NEGATIVE); BARBITURATE SCREEN URINE NEGATIVE (NEGATIVE); BENZODIAZEPINES SCREEN URINE NEGATIVE (NEGATIVE); CANNABINOID SCREEN, URINE NEGATIVE (NEGATIVE); COCAINE SCREEN URINE NEGATIVE (NEGATIVE); METHADONE STAT NEGATIVE (NEGATIVE); METHAMPHETAMINE SCREEN URINE S NEGATIVE (NEGATIVE); OPIATE SCREEN URINE NEGATIVE (NEGATIVE); OXYCODONE STAT NEGATIVE (NEGATIVE); PROPOXYPHENE STAT NEGATIVE (NEGATIVE); TRICYCLIC ANTIDEPRESSANTS SCRE NEGATIVE (NEGATIVE)
[2020-06-15 02:25] LABS: PROTHROMBIN TIME PATIENT 13.2 SEC (12.2-14.7)
--- NOTE | 2020-06-15 04:52 | NUR ---
Report to [facility] room #[id number]. [phone]. Notified of delay due to transfer crews.
--- NOTE | 2020-06-15 06:30 | Diagnostic Imaging Report ---
Clinical indication: Patient brought in from care home for chest pains and confusion. Patient COVID positive. Exam: Axial CT scan of the brain without IV contrast with coronal and sagittal reformatted images. Auto Exposure Controls were utilized during the CT exam to meet ALARA standards for radiation dose reduction. Comparison: None. Findings: There is motion and skull streak artifact which limits evaluation of the brainstem, posterior fossa, and portions of the brain near the skull. There is no evidence of acute cerebral infarct, intracranial hemorrhage, or gross mass effect. The brain parenchymal volume appears appropriate for patient's age. There are mild patchy areas of low-attenuation white matter changes involving both cerebral hemispheres likely representing chronic small vessel ischemic disease. There is normal mckay-white matter distinction. There is no significant midline shift or herniation. There is no evidence of hydrocephalus. The basal cisterns are unremarkable. The skull, extracranial soft tissue, and orbits are unremarkable. The paranasal sinuses are unremarkable. Temporal bones show no significant abnormality. Impression: Limited exam due to motion and skull streak artifact. Otherwise, there is no gross CT evidence of acute intracranial process. I agree with [facility] report Dictated by: Dictated on workstation # [id number]
--- NOTE | 2020-06-15 06:56 | Diagnostic Imaging Report ---
INDICATION: Chest pain and positive COVID test AP view of chest is obtained with comparison made to study of 06/11/2020. There is a mild overall increase in predominantly peripheral areas of atelectasis with mixed alveolar and groundglass density. No lobar consolidation is identified. There is no definite pleural fluid seen. IMPRESSION: Predominantly peripheral areas of atelectasis and probable pneumonitis. This could be on the basis of viral pneumonitis without consolidation or pneumothorax detected. Dictated by: Dictated on workstation # [id number]
[2020-06-15 07:51] VITALS: BP 128/65
== END 2020-06-15 08:02 | disposition short-term general hospital (02) ==
LOC: EDUNIT# 23:54 → ER FS 23:59
DX: E86.0 Dehydration (principal); I10 Essential (primary) hypertension; K21.9 Gastro-esophageal reflux disease without esophagitis
CPT/HCPCS: 36415; 51701; 70450; 71045; 80053; 80306; 81000; 83605; 85025; 85610; 87040; 99284; G0480; 80329; 93005

== ENCOUNTER → 2020-08-05 | Outpatient (CLI) | payer OTHER ==
[~2020-08-05] MED LIST changes: +CATHETER FLUSH 10 ML SYR IV PRN; +HOLD METFORMIN - RECEIVED CONTRAST 20 ML VIAL IV SCH; +IOHEXOL 350 MG/ML 100 ML (OMNIPAQUE 350) VIAL IV ONE; +NS 100 ML (IVPB) BAG IV ONE
[2020-08-05 13:20] LABS: CREATININE SERUM 1.24 MG/DL (0.60-1.30)
--- NOTE | 2020-08-05 20:41 | Diagnostic Imaging Report ---
PROCEDURE: CT chest with contrast only. TECHNIQUE: Multiple contiguous axial images were obtained through the chest after administration of intravenous contrast. Auto Exposure Controls were utilized during the CT exam to meet ALARA standards for radiation dose reduction. DATE: August 05, 2020. COMPARISON: Chest radiograph June 15, 2020. INDICATION: 70-year-old male, cough. Diagnosis of Covid 19 two months ago. FINDINGS: There are multifocal predominantly peripheral linear opacities with areas of distortion of the lung parenchyma most consistent with multifocal scarring. There are some focal areas of groundglass type attenuation such as in the right upper lobe on axial image 43 which do not necessarily have associated linear opacities although the generalized appearance is predominantly multifocal patchy linear opacification and distortion of lung parenchyma. There is no identified noncalcified pulmonary nodule. There is no lung mass. There is no pneumothorax. There is no pleural effusion. The central airways are patent. There is no identified large central pulmonary embolus. There is nondiagnostic assessment for segmental and subsegmental pulmonary emboli given the timing of the contrast bolus. The heart is not enlarged. There is no pericardial effusion. There is no abnormally enlarged mediastinal, hilar or axillary lymph node which meets CT size criteria for adenopathy. There is a benign lipoma at the level of the second portion of duodenum, measuring 1.4 cm in size. There is no identified acute bony abnormality. There are findings of diffuse idiopathic skeletal hyperostosis. There is a subcentimeter probable benign bone island in the sternum. IMPRESSION: CT chest: 1. Multifocal peripheral predominantly linear opacities and distortion of the lung parenchyma most consistent with multifocal lung scarring. This potentially could relate to sequela of prior Covid 19 infection. 2. Very small focal area of groundglass hypoattenuation in the right lung apex which most likely relates to the above process and sequela of prior insult although early findings of a persistent or active infectious or inflammatory process are difficult to entirely exclude. Dictated by: Dictated on workstation # [id number]
== END ==
LOC: RAD FS 12:21
PROVIDERS: ATTEND Nurse Practitioner Family
DX: J12.9 Viral pneumonia, unspecified (principal)
CPT/HCPCS: 36415; 71260; 82565; 84520

== ENCOUNTER 2022-07-03 13:20 | Inpatient (IN) | payer MEDICARE, OTHER ==
[~2022-07-03] VITALS: Ht 185.5 cm; Wt 126.0 kg
[~2022-07-03 13:20] MED LIST changes: -CATHETER FLUSH 10 ML SYR IV PRN; -HOLD METFORMIN - RECEIVED CONTRAST 20 ML VIAL IV SCH; -IOHEXOL 350 MG/ML 100 ML (OMNIPAQUE 350) VIAL IV ONE; -LISI10TA2 PO; +LISI10TA25 PO; -NS 100 ML (IVPB) BAG IV ONE; -OLAN10TA19 PO; +OLAN10TA71 PO
[2022-07-03] MEDS: dilTIAZem DRIP PRE-MIX 125 ML IV SCH ×4 (13:37→20:54)
[2022-07-03 13:45] LABS: BASOPHILS # (AUTO) 0.1 10^3/uL (0.0-0.1); BASOPHILS % (AUTO) 0 % (0-10); EOSINOPHILS % (AUTO) 0 % (0-10); HEMATOCRIT 43 % (40-54); HEMOGLOBIN 13.6 g/dL (13.3-17.7); LYMPHOCYTES # (AUTO) 0.7 10^3/uL (1.0-4.0); LYMPHOCYTES % (AUTO) 4 % (12-44); MEAN CORPUSCULAR HEMOGLOBIN 30 pg (25-34); MEAN CORPUSCULAR HGB CONC 32 g/dL (32-36); MEAN CORPUSCULAR VOLUME 93 fL (80-99); MEAN PLATELET VOLUME 10.4 fL (9.0-12.2); MONOCYTES # (AUTO) 1.5 10^3/uL (0.0-1.0); MONOCYTES % (AUTO) 9 % (0-12); NEUTROPHILS # (AUTO) 14.2 10^3/uL (1.8-7.8); NEUTROPHILS % (AUTO) 86 % (42-75); PLATELET COUNT 320 10^3/uL (130-400); WHITE BLOOD COUNT 16.5 10^3/uL (4.3-11.0)
[2022-07-03 13:58] LABS: INR 1.2 (0.8-1.4); PROTHROMBIN TIME PATIENT 15.2 SEC (12.2-14.7)
[2022-07-03 13:59] LABS: ALBUMIN 3.9 GM/DL (3.2-4.5); POTASSIUM 4.6 MMOL/L (3.6-5.0)
[2022-07-03 14:00] LABS: CALCIUM 9.2 MG/DL (8.5-10.1)
[2022-07-03] MEDS ORDERED: ACETAMINOPHEN 500 MG TAB (TYLENOL) PO ONE (14:00)
[2022-07-03 14:01] LABS: TOTAL PROTEIN 7.1 GM/DL (6.4-8.2)
[2022-07-03 14:03] LABS: BILIRUBIN,TOTAL 0.9 MG/DL (0.1-1.0)
[2022-07-03 14:05] LABS: CREATININE SERUM 2.56 MG/DL (0.60-1.30)
[2022-07-03 14:06] LABS: BAND NEUTROPHILS 0 %; BASOPHILS % (MANUAL) 0 %; EOSINOPHILS % (MANUAL) 0 %; LYMPHOCYTES % (MANUAL) 2 %; MONOCYTES % (MANUAL) 6 %; NEUTROPHILS % (MANUAL) 92 %; RBC MORPH NORMAL
[2022-07-03 14:07] LABS: MAGNESIUM 2.1 MG/DL (1.6-2.4)
--- NOTE | 2022-07-03 14:10 | Diagnostic Imaging Report ---
INDICATION: Chest pain. Frontal chest obtained at 1:44 p.m. and compared to 06/15/2020. FINDINGS: Heart is mildly enlarged. There is central vascular prominence. There are chronic appearing increased interstitial markings. There is no consolidation or pneumothorax or pleural fluid. IMPRESSION: Cardiomegaly and mild central vascular prominence. No focal consolidation or pleural fluid. Dictated by: Dictated on workstation # [id number]
[2022-07-03] MEDS ORDERED: cefTRIAXone 1 GM PRE-MIX 50 ML IV STA (14:20)
[2022-07-03] MEDS ORDERED: NS IV 1000 ML 1,000 ML IV SCH ×2 (14:30→16:30)
--- NOTE | 2022-07-03 14:33 | ED Cardiac General ---
History of Present Illness General Chief Complaint: Cardiac/General Problems Stated Complaint: A-FIB RVR Nursing Triage Note: PT TO ED BY EMS WITH C/O RAPID HR. EMS REPORTS THEY WERE CALLED TO [facility] PT LOOKED MORE PALE THAN NORMAL, HR WAS 160S. PT REPORTS HE FEELS WEAK. Source: patient Exam Limitations: no limitations History of Present Illness Date Seen by Provider: Jul 03, 2022 Time Seen by Provider: 13:25 Initial Comments This 72-year-old gentleman presents to the emergency room via EMS with new onset A. fib RVR. He was recently incarcerated at the [facility] and was released approximately 2 weeks ago. He has been homeless since then and has been staying at a [facility] at the [facility]. He was picked up at [facility] today. EMS reports irregular tachycardia with a heart rate in the 170s suggestive of A. fib RVR. Patient denies any history of heart disease or arrhythmias. He has no local doctor but has an establish care visit pending with [facility]. He reports an episode of chest pain yesterday but no pain at present. He vomited earlier today but is not nauseous now. He is afebrile but has chills. He denies other symptoms of acute infectious illness. He reports his only health history is hypertension and poorly treated diabetes. He has had prior admission for pneumonia. Allergies and Home Medications Allergies Coded Allergies: Penicillins (Verified Allergy, Mild, Rash, 07/03/22) Patient Home Medication List Home Medication List Reviewed: Yes Azithromycin (Azithromycin) 250 Mg Tablet, 250 MG PO DAILY Prescribed by: TIANA LIZARRAGA on 06/14/20923 Cephalexin (Keflex) 500 Mg Capsule, 500 MG PO BID Prescribed by: TIANA LIZARRAGA on 06/14/20923 Famotidine (Pepcid) 20 Mg Tablet, 20 MG PO DAILY, (Reported) Entered as Reported by: JANA LEO on 06/11/202209 Hydrochlorothiazide (Hydrochlorothiazide) 12.5 Mg Tablet, 12.5 MG PO BID, (Reported) Entered as Reported by: JANA LEO on 06/11/202209 Multivitamin (Multivitamin) 1 Each Tablet, 1 EACH PO DAILY, (Reported) Entered as Reported by: JANA LEO on 06/11/202209 Pantoprazole Sodium (Pantoprazole Sodium) 40 Mg Tablet.dr, 40 MG PO BID, (Reported) Entered as Reported by: JANA LEO on 06/11/202209 Tamsulosin HCl (Flomax) 0.4 Mg Cap, 0.4 MG PO BID, (Reported) Entered as Reported by: JANA LEO on 06/11/202209 Review of Systems Review of Systems Constitutional: see HPI, chills EENTM: No Symptoms Reported Respiratory: SOA With Exertion Cardiovascular: See HPI Gastrointestinal: See HPI Genitourinary: No Symptoms Reported Musculoskeletal: no symptoms reported Skin: no symptoms reported Psychiatric/Neurological: No Symptoms Reported Endocrine: No Symptoms Reported Hematologic/Lymphatic: No Symptoms Reported Past Pyfzyow-Fgyywq-Eaoviu Hx Patient Social History Tobacco Use?: No Use of E-Cig and/or Vaping dev: No Substance use?: No Alcohol Use?: No Pt feels they are or have been: No Immunizations Up To Date Influenza Vaccine Up-to-Date: No; Not Current First/Initial COVID19 Vaccinat: 2020 Seasonal Allergies Seasonal Allergies: No Past Medical History Surgery/Hospitalization HX: HTN, DM 2 Surgeries: No Respiratory: Yes (Prior COVID infection) Pneumonia Cardiac: Yes Hypertension Neurological: No Genitourinary: No Gastrointestinal: Yes Gastroesophageal Reflux Musculoskeletal: No Endocrine: Yes Diabetes, Non-Insulin dep HEENT: No Cancer: No Psychosocial: No Integumentary: No Blood Disorders: No Physical Exam Vital Signs Vital Signs - First Documented 07/03/22 13:21 Temp 37.8 Pulse 168 Resp 20 B/P (MAP) 106/58 (74) Pulse Ox 96 O2 Delivery Room Air Capillary Refill : Less Than 3 Seconds Height, Weight, BMI Height: '" Weight: lbs. oz. 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 Norm as Tested Skin: Normal Color, Warm/Dry Focused Exam Lactate Level 07/03/22 13:28: Lactic Acid Level 6.09*H Lactic Acid Level Laboratory Tests Test 07/03/22 13:28 Lactic Acid Level 6.09 MMOL/L (0.50-2.00) *H Progress/Results/Core Measures Results/Orders Lab Results Laboratory Tests Test 07/03/22 13:28 Range/Units White Blood Count 16.5 H 4.3-11.0 10^3/uL Red Blood Count 4.57 4.30-5.52 10^6/uL Hemoglobin 13.6 13.3-17.7 g/dL Hematocrit 43 40-54 % Mean Corpuscular Volume 93 80-99 fL Mean Corpuscular Hemoglobin 30 25-34 pg Mean Corpuscular Hemoglobin Concent 32 32-36 g/dL Red Cell Distribution Width 14.1 10.0-14.5 % Platelet Count 320 130-400 10^3/uL Mean Platelet Volume 10.4 9.0-12.2 fL Immature Granulocyte % (Auto) 1 % Neutrophils (%) (Auto) 86 H 42-75 % Lymphocytes (%) (Auto) 4 L 12-44 % Monocytes (%) (Auto) 9 0-12 % Eosinophils (%) (Auto) 0 0-10 % Basophils (%) (Auto) 0 0-10 % Neutrophils # (Auto) 14.2 H 1.8-7.8 10^3/uL Lymphocytes # (Auto) 0.7 L 1.0-4.0 10^3/uL Monocytes # (Auto) 1.5 H 0.0-1.0 10^3/uL Eosinophils # (Auto) 0.0 0.0-0.3 10^3/uL Basophils # (Auto) 0.1 0.0-0.1 10^3/uL Immature Granulocyte # (Auto) 0.1 0.0-0.1 10^3/uL Neutrophils % (Manual) 92 % Lymphocytes % (Manual) 2 % Monocytes % (Manual) 6 % Eosinophils % (Manual) 0 % Basophils % (Manual) 0 % Band Neutrophils 0 % Blood Morphology Comment NORMAL Prothrombin Time 15.2 H 12.2-14.7 SEC INR Comment 1.2 0.8-1.4 Activated Partial Thromboplast Time 23 L 24-35 SEC Sodium Level 139 135-145 MMOL/L Potassium Level 4.6 3.6-5.0 MMOL/L Chloride Level 104 98-107 MMOL/L Carbon Dioxide Level 15 L 21-32 MMOL/L Anion Gap 20 H 5-14 MMOL/L Blood Urea Nitrogen 42 H 7-18 MG/DL Creatinine 2.56 H 0.60-1.30 MG/DL Estimat Glomerular Filtration Rate 26 BUN/Creatinine Ratio 16 Glucose Level 271 H 70-105 MG/DL Lactic Acid Level 6.09 *H 0.50-2.00 MMOL/L Calcium Level 9.2 8.5-10.1 MG/DL Corrected Calcium 9.3 8.5-10.1 MG/DL Magnesium Level 2.1 1.6-2.4 MG/DL Total Bilirubin 0.9 0.1-1.0 MG/DL Aspartate Amino Transf (AST/SGOT) 23 5-34 U/L Alanine Aminotransferase (ALT/SGPT) 28 0-55 U/L Alkaline Phosphatase 171 H 40-136 U/L Myoglobin 1399.1 H 10.0-92.0 NG/ML Troponin I 0.040 H <0.028 NG/ML C-Reactive Protein High Sensitivity 14.94 H 0.00-0.50 MG/DL B-Type Natriuretic Peptide 30.2 <100.0 PG/ML Total Protein 7.1 6.4-8.2 GM/DL Albumin 3.9 3.2-4.5 GM/DL Influenza Type A (RT-PCR) Not Detected Not Detecte Influenza Type B (RT-PCR) Not Detected Not Detecte SARS-CoV-2 RNA (RT-PCR) Not Detected Not Detecte My Orders Amna - MARCOS TOUSSAINT MD Ekg Tracing (07/03/22 13:21) Cbc With Automated Diff (07/03/22 13:26) Magnesium (07/03/22 13:26) Chest 1 View, Ap/Pa Only (07/03/22 13:26) Comprehensive Metabolic Panel (07/03/22 13:26) Myoglobin Serum (07/03/22 13:26) Protime With Inr (07/03/22 13:26) Partial Thromboplastin Time (07/03/22 13:26) O2 (07/03/22 13:26) Monitor-Rhythm Ecg Trace Only (07/03/22 13:26) Lipid Panel (07/04/22 06:00) Ed Iv/Invasive Line Start (07/03/22 13:26) Troponin I [place] (07/03/22 13:26) Diltiazem Injection (Cardizem Injection) (07/03/22 13:30) Diltiazem Drip Pre-Mix (Cardizem Drip Pr (07/03/22 13:30) Manual Differential (07/03/22 13:28) Hs C Reactive Protein (07/03/22 13:58) Covid 19 Inhouse Test (07/03/22 13:58) Influenza A And B By Pcr (07/03/22 13:58) Ua Culture If Indicated (07/03/22 13:58) Acetaminophen Tablet (Tylenol Tablet) (07/03/22 14:00) Ns Iv 1000 Ml (Sodium Chloride 0.9%) (07/03/22 14:30) Blood Culture (07/03/22 14:20) Sputum Culture (07/03/22 14:20) Vital Signs Adult Sepsis Patie Q15M (07/03/22 14:20) Remove Rings In Anticipation O (07/03/22 14:20) Lactic Acid Analyzer (07/03/22 14:20) Ceftriaxone 1 Gm Pre-Mix (Rocephin 1 Gm (07/03/22 14:20) Ed Admission (Communication) (07/03/22 14:38) Medications Given in ED Current Medications Medications Dose Ordered Sig/Lauri Route Start Time Stop Time Status Last Admin Dose Admin Acetaminophen 1,000 mg ONCE ONCE PO 07/03/22 14:00 07/03/22 14:01 DC 07/03/22 14:06 1,000 MG Diltiazem HCl 5 mg ONCE ONCE IVP 07/03/22 13:30 07/03/22 13:31 DC 07/03/22 13:37 5 MG Vital Signs/I&O 07/03/22 07/03/22 07/03/22 13:21 13:37 13:37 Temp 37.8 Pulse 168 165 152 Resp 20 B/P (MAP) 106/58 (74) 110/59 110/59 Pulse Ox 96 O2 Delivery Room Air Blood Pressure Mean: 76 Progress Progress Note #1: Time: 14:34 Progress Note Patient has received a liter of IV fluid as initiated by EMS. Cardizem bolus and drip were ordered and bolus has been administered. A second liter of IV fluid was ordered after noting acute kidney injury. Patient had chills without fever and was given Tylenol. Chest x-ray showed congestion which may represent pneumonia in addition to some A. fib RVR associated failure. Troponin was mi nimally bumped. Antibiotics are being initiated with Rocephin after blood cultures and lactic acid collection. Progress Note #2: Progress Note CODE STATUS was discussed with patient, and he requests full code. Report was given to eICU. Initial ECG Impression Date: Jul 03, 2022 Initial ECG Impression Time: 13:25 Initial ECG Rate: 171 Initial ECG Rhythm: A Fib/Flutter Initial ECG Impression: Atrial Fibrillation w/RVR Comment Atrial fibrillation with RVR. No STEMI detected. Diagnostic Imaging Diagonstic Imaging: Xray Plain Films/CT/US/NM/MRI: chest Comments NAME: [facility] REC#: [id number] PT STATUS: REG ER : 1950 PHYSICIAN: MARCOS TOUSSAINT MD ADMIT DATE: 07/03/22/ER Draft Date of Exam:07/03/22 CHEST 1 VIEW, AP/PA ONLY INDICATION: Chest pain. Frontal chest obtained at 1:44 p.m. and compared to 06/15/2020. FINDINGS: Heart is mildly enlarged. There is central vascular prominence. There are chronic appearing increased interstitial markings. There is no consolidation or pneumothorax or pleural fluid. IMPRESSION: Cardiomegaly and mild central vascular prominence. No focal consolidation or pleural fluid. Dictated on workstation # [id number] Dict: 07/03/22 1407 Trans: 07/03/22 1410 [id number] Interpreted by: ANURAG CAMPOS MD Departure Communication (Admissions) Time/Spoke to Admitting Phy: 14:35 Dr. Atwood Time/Spoke to Consulting Phy: 14:40 Dr. Ramirez Impression Primary Impression: Atrial fibrillation with RVR Additional Impressions: Elevated troponin Acute kidney injury Abnormal chest x-ray Disposition: ADMITTED INPATIENT Condition: Improved Admissions Decision to Admit Reason: Admit from ER (General) Decision to Admit/Date: Jul 03, 2022 Time/Decision to Admit Time: 14:35 Departure-Patient Inst. Referrals: NO,LOCAL PHYSICIAN (PCP/Family) Primary Care Physician MARCOS TOUSSAINT MD Jul 03, 2022 14:33
[2022-07-03] MEDS ORDERED: ASPIRIN 81 MG CHEW (CHILDREN'S ASA) PO ONE (14:45)
[2022-07-03] MEDS ORDERED: ENOXAPARIN 60 MG/0.6 ML (LOVENOX) SYR SC ONE (14:45)
[2022-07-03] MEDS ORDERED: inSUlin ASPART (NovoLOG) 1 UNIT/0.01 ML (CHARGE PER UNIT) SC PRN (16:30)
[2022-07-03] MEDS ORDERED: ENOXAPARIN 150 MG/ML (LOVENOX) SYR SQ SCH (16:30)
[2022-07-03] MEDS ORDERED: NS IV 500 ML 500 ML IV PRN (16:30)
[2022-07-03] MEDS ORDERED: NS IV 1000 ML 1,000 ML ONE (16:37)
--- NOTE | 2022-07-03 16:44 | Tele-ICU Consult ---
History of Present Illness History of Present Illness Date Seen by Provider: Jul 03, 2022 Time Seen by Provider: 16:43 Date of Admission (Tele-ICU Physician , consultation as per request of PCP Service provided via interactive audio and video telecommunications E-CARE system to a patient admitted to ICU bed in [facility]. Available chart/ vitals / labs / Images reviewed H&P is from ER notes Patient's information available about PMH, Shx, Fhx allergy reviewed inEMR. ROS as per chart and RN report Now in ICU, hemodynamically stable on cardizem gtt Video assessment done using teleICU camera, rest of exam as per RN Discussed with RN. Consultants: roro Hospital course: (07/03) 72M admitted with New onset AFib RVR, possible PNA, ROMANA A/P Sepsis? . elevated lactate and leukocytosis - received 2 l NS as per sepsis protocol , ordering repeated lactate level - abx initiated in ER , - ? sourse ( x pending , PCT low, UA pending Afib RVR - new dx - careizem gtt started in ER - cards consulted from ER - ECHO ordered - AC - lovenox 120 given in er - - to adjust to renal function PNA , suspected ( NEG covid and flu ) - abx initiated , follow ROMANA/CKD - received 2 l NS , follow UP and labs , 3rd liter ongoing , did not urinate yet - will repeat BMP Hyperglycemia - ISS Lines : periph , (Central Line Necessity Reviewed) Scott: void OG: Nutrition: Analgesia: Anxiety/ delirium VTE Prophylaxis: lovenox full dose Stress Ulcer Prophylaxis: na Plans in collaboration with bedside consultants and IM MDs. Discussed with RN to reach out if any questions or concerns A total of 32 minutes of critical care time was devoted to this patient today, required to treat and/or prevent further deterioration of critical care condition ( as above ) . I am remotely monitoring this patient from another state. I am unable to do the bedside exam, and history/physical and pertinent information is taken from other notes in the computer and bedside staff. . Allergies and Home Medications Allergies Coded Allergies: Penicillins (Verified Allergy, Mild, Rash, 07/03/22) Home Medications Azithromycin 250 Mg Tablet, 250 MG PO DAILY Prescribed by: TIANA LIZARRAGA on 06/14/20 0924 Cephalexin 500 Mg Capsule, 500 MG PO BID Prescribed by: TIANA LIZARRAGA on 06/14/20 0924 Famotidine 20 Mg Tablet, 20 MG PO DAILY, (Reported) Hydrochlorothiazide 12.5 Mg Tablet, 12.5 MG PO BID, (Reported) Multivitamin 1 Each Tablet, 1 EACH PO DAILY, (Reported) Pantoprazole Sodium 40 Mg Tablet.dr, 40 MG PO BID, (Reported) Tamsulosin HCl 0.4 Mg Cap, 0.4 MG PO BID, (Reported) Past Medical/Social/Family Hx Patient Social History Tobacco Use?: No Use of E-Cig and/or Vaping dev: No Substance use?: No Alcohol Use?: No Pt stated abuse/neglect: No Immunizations Up To Date Influenza Vaccine Up-to-Date: No; Not Current First/Initial COVID19 Vaccinat: 2020 Current Status Advance Directives: No Communicates: Verbally Primary Language: Citizen Of [place] Preferred Spoken Language: Citizen Of [place] Is interpretation needed?: No Review of Systems Constitutional: see HPI Focused Exam Lactate Level 07/03/22 13:28: Lactic Acid Level 6.09*H Height, Weight, BMI Height: '" Weight: lbs. oz. kg; 37.00 BMI Method: Lactic Acid Level Laboratory Tests Test 07/03/22 13:28 Lactic Acid Level 6.09 MMOL/L (0.50-2.00) *H Exam Exam Patient acknowledged, consented, and participated in this virtual visit which was conducted using real time audio/video Vital Signs Date Time Temp Pulse Resp B/P (MAP) Pulse Ox O2 Delivery O2 Flow Rate FiO2 07/03/22 15:53 112 18 80/59 97 07/03/22 13:37 152 110/59 07/03/22 13:37 165 110/59 07/03/22 13:21 37.8 168 20 106/58 (74) 96 Room Air Height & Weight Height: '" Weight: lbs. oz. 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
[2022-07-03] MEDS ORDERED: ENOXAPARIN 100 MG/1 ML (LOVENOX) SYR SC SCH (16:45)
--- NOTE | 2022-07-03 16:45 | Consultation-Cardiology ---
HPI-Cardiology Cardiology Consultation Date of Consultation 07/03/22 Date of Admission Time Seen by Provider: 16:40 Indication: Atrial fibrillation HPI 72-year-old gentleman came into the emergency room for generalized weakness and loss of energy. He was incarcerated at the [facility] for about 5 years and he was released about 2 weeks ago on probation. He has been homeless. He has been staying at the [facility]. He was picked up at [facility] today, brought by EMS due to tachycardia and irregular heartbeat and generalized fatigue. Heart rate was around 170. He was started on Cardizem drip, has been borderline hypotensive. Reported fever and chills. Generalized weakness. Home Medications & Allergies Allergies: Coded Allergies: Penicillins (Verified Allergy, Mild, Rash, 07/03/22) Home Medication List Reviewed: Yes UNF-Hxuklv-Bqueay Hx Patient Social History Marital Status: single Employed/Student: unemployed Recent Hopitalizations: Yes Have you traveled recently?: No Alcohol Use?: No Past Medical History Discussed below Family Medical History Significant Family History: No Pertinent Family Hx Review of Systems-General Review of Systems Constitutional: see HPI, chills, fever, malaise, weakness EENTM: see HPI, no symptoms reported Respiratory: no symptoms reported, see HPI Cardiovascular: see HPI Gastrointestinal: no symptoms reported, see HPI Genitourinary: no symptoms reported, see HPI Musculoskeletal: no symptoms reported Skin: no symptoms reported Psychiatric/Neurological: No Symptoms Reported Reviewed Test Results Reviewed Test Results Lab Laboratory Tests Test 07/03/22 13:28 Range/Units White Blood Count 16.5 H 4.3-11.0 10^3/uL Red Blood Count 4.57 4.30-5.52 10^6/uL Hemoglobin 13.6 13.3-17.7 g/dL Hematocrit 43 40-54 % Mean Corpuscular Volume 93 80-99 fL Mean Corpuscular Hemoglobin 30 25-34 pg Mean Corpuscular Hemoglobin Concent 32 32-36 g/dL Red Cell Distribution Width 14.1 10.0-14.5 % Platelet Count 320 130-400 10^3/uL Mean Platelet Volume 10.4 9.0-12.2 fL Immature Granulocyte % (Auto) 1 % Neutrophils (%) (Auto) 86 H 42-75 % Lymphocytes (%) (Auto) 4 L 12-44 % Monocytes (%) (Auto) 9 0-12 % Eosinophils (%) (Auto) 0 0-10 % Basophils (%) (Auto) 0 0-10 % Neutrophils # (Auto) 14.2 H 1.8-7.8 10^3/uL Lymphocytes # (Auto) 0.7 L 1.0-4.0 10^3/uL Monocytes # (Auto) 1.5 H 0.0-1.0 10^3/uL Eosinophils # (Auto) 0.0 0.0-0.3 10^3/uL Basophils # (Auto) 0.1 0.0-0.1 10^3/uL Immature Granulocyte # (Auto) 0.1 0.0-0.1 10^3/uL Neutrophils % (Manual) 92 % Lymphocytes % (Manual) 2 % Monocytes % (Manual) 6 % Eosinophils % (Manual) 0 % Basophils % (Manual) 0 % Band Neutrophils 0 % Blood Morphology Comment NORMAL Prothrombin Time 15.2 H 12.2-14.7 SEC INR Comment 1.2 0.8-1.4 Activated Partial Thromboplast Time 23 L 24-35 SEC Sodium Level 139 135-145 MMOL/L Potassium Level 4.6 3.6-5.0 MMOL/L Chloride Level 104 98-107 MMOL/L Carbon Dioxide Level 15 L 21-32 MMOL/L Anion Gap 20 H 5-14 MMOL/L Blood Urea Nitrogen 42 H 7-18 MG/DL Creatinine 2.56 H 0.60-1.30 MG/DL Estimat Glomerular Filtration Rate 26 BUN/Creatinine Ratio 16 Glucose Level 271 H 70-105 MG/DL Lactic Acid Level 6.09 *H 0.50-2.00 MMOL/L Calcium Level 9.2 8.5-10.1 MG/DL Corrected Calcium 9.3 8.5-10.1 MG/DL Magnesium Level 2.1 1.6-2.4 MG/DL Total Bilirubin 0.9 0.1-1.0 MG/DL Aspartate Amino Transf (AST/SGOT) 23 5-34 U/L Alanine Aminotransferase (ALT/SGPT) 28 0-55 U/L Alkaline Phosphatase 171 H 40-136 U/L Myoglobin 1399.1 H 10.0-92.0 NG/ML Troponin I 0.040 H <0.028 NG/ML C-Reactive Protein High Sensitivity 14.94 H 0.00-0.50 MG/DL B-Type Natriuretic Peptide 30.2 <100.0 PG/ML Total Protein 7.1 6.4-8.2 GM/DL Albumin 3.9 3.2-4.5 GM/DL Influenza Type A (RT-PCR) Not Detected Not Detecte Influenza Type B (RT-PCR) Not Detected Not Detecte SARS-CoV-2 RNA (RT-PCR) Not Detected Not Detecte Physical Exam Physical Exam Vital Signs Vital Signs - First Documented 07/03/22 13:21 Temp 37.8 Pulse 168 Resp 20 B/P (MAP) 106/58 (74) Pulse Ox 96 O2 Delivery Room Air Capillary Refill : Less Than 3 Seconds Height, Weight, BMI Height: '" Weight: lbs. oz. kg; 37.00 BMI Method: General Appearance: WD/WN, Mild Distress Eyes: Bilateral Eye Normal Inspection, Bilateral Eye PERRL, Bilateral Eye EOMI HEENT: PERRL/EOMI, Normal ENT Inspection Neck: Normal Inspection; No JVD Respiratory: Lungs Clear, Normal Breath Sounds, No Accessory Muscle Use, No Respiratory Distress Cardiovascular: No Edema, No Murmur, Irregularly Irregular, Tachycardia Gastrointestinal: Normal Bowel Sounds, Non Tender, Soft Back: Normal Inspection, No CVA Tenderness, No Vertebral Tenderness Extremity: Normal Inspection, Non Tender, No Pedal Edema Neurologic/Psychiatric: Alert, Oriented x3, No Motor/Sensory Deficits, Normal 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 I am planning for TRES and cardioversion in the morning meanwhile I will add digoxin Fever, chills, increased CRP Questionable underlying sepsis. Receiving antibiotics and septic work-up i nitiated by primary care physician Troponin 0.4, mildly elevated, probably type II myocardial infarction secondary to tachycardia. Underlying coronary artery disease cannot be entirely excluded Acute renal failure, had lab work in 2019 with renal insufficiency Receiving IV fluids, monitor renal function. Generalized weakness and fatigue. Probably secondary to above. DUGLAS BURNHAM MD Jul 03, 2022 16:45
[2022-07-03] MEDS ORDERED: DIGOXIN 0.25 MG/ML (LANOXIN) 2 ML AMP IV NR (17:00)
[2022-07-03 17:04] LABS: POTASSIUM 4.1 MMOL/L (3.6-5.0)
[2022-07-03 17:05] LABS: CALCIUM 8.1 MG/DL (8.5-10.1)
[2022-07-03 17:09] LABS: CREATININE SERUM 2.28 MG/DL (0.60-1.30)
[2022-07-03] MEDS: NS IV 1000 ML 1,000 ML IV SCH (18:56)
[2022-07-03] MEDS: MICONAZOLE 2% POWDER (DESENEX AF) 90 GM TOP SCH (20:48)
[2022-07-04] MEDS: dilTIAZem DRIP PRE-MIX 125 ML IV SCH ×2 (04:10→18:18)
[2022-07-04] MEDS: NS IV 1000 ML 1,000 ML IV SCH ×3 (04:11→20:26)
[2022-07-04] MEDS ORDERED: ENOXAPARIN 300 MG/3 ML (LOVENOX) MULTI-DOSE VIAL SQ SCH (05:00)
[2022-07-04 05:12] LABS: BASOPHILS # (AUTO) 0.1 10^3/uL (0.0-0.1); BASOPHILS % (AUTO) 1 % (0-10); EOSINOPHILS % (AUTO) 0 % (0-10); HEMATOCRIT 34 % (40-54); HEMOGLOBIN 10.7 g/dL (13.3-17.7); LYMPHOCYTES # (AUTO) 1.3 10^3/uL (1.0-4.0); LYMPHOCYTES % (AUTO) 12 % (12-44); MEAN CORPUSCULAR HEMOGLOBIN 29 pg (25-34); MEAN CORPUSCULAR HGB CONC 31 g/dL (32-36); MEAN CORPUSCULAR VOLUME 93 fL (80-99); MEAN PLATELET VOLUME 11.1 fL (9.0-12.2); MONOCYTES # (AUTO) 1.2 10^3/uL (0.0-1.0); MONOCYTES % (AUTO) 11 % (0-12); NEUTROPHILS # (AUTO) 8.5 10^3/uL (1.8-7.8); NEUTROPHILS % (AUTO) 76 % (42-75); PLATELET COUNT 230 10^3/uL (130-400); WHITE BLOOD COUNT 11.1 10^3/uL (4.3-11.0)
[2022-07-04] MEDS: POTASSIUM CL 10MEQ/50ML IVPB 50 ML IV SCH (05:35)
[2022-07-04] MEDS: MAGNESIUM 1 GM/100 ML IVPB 100 ML IV SCH (05:35)
[2022-07-04] MEDS: KCL 20 MEQ TAB (K-DUR) PO SCH (05:35)
[2022-07-04 05:39] LABS: BILIRUBIN,TOTAL 0.4 MG/DL (0.1-1.0); CALCIUM 7.8 MG/DL (8.5-10.1); CREATININE SERUM 1.82 MG/DL (0.60-1.30); PHOSPHORUS 2.7 MG/DL (2.3-4.7); TOTAL PROTEIN 5.6 GM/DL (6.4-8.2)
[2022-07-04 05:43] LABS: BILIRUBIN,URINE NEGATIVE (NEGATIVE); CLARITY,URINE CLOUDY; COLOR,URINE ORANGE; GLUCOSE, URINE (UA) NEGATIVE (NEGATIVE); KETONES,URINE NEGATIVE (NEGATIVE); LEUKOCYTE ESTERASE ,URINE NEGATIVE (NEGATIVE); NITRITE,URINE NEGATIVE (NEGATIVE); PROTEIN,URINE 1+ (NEGATIVE)
[2022-07-04 05:52] LABS: AMORPHOUS SEDIMENT,UR MOD AMOR URATES /LPF; BACTERIA,URINE NEGATIVE /HPF
[2022-07-04] MEDS ORDERED: FLU QUAD HIGH DOSE 240 MCG/0.7 ML 2022-23 (FLUZONE) IM ONE (06:45)
[2022-07-04] MEDS ORDERED: LIDOCAINE 2% VISCOUS 15 ML UDC ONE (07:37)
--- NOTE | 2022-07-04 07:39 | Cardiology Progress Note ---
Subjective Date Seen by Provider: Jul 04, 2022 Time Seen by Provider: 07:38 Subjective/Events-last exam Patient was seen at bedside, laying down comfortably, heart rate is better controlled, blood pressure is more stable. Review of Systems General: No Chills, No Night Sweats, No Fatigue, No Malaise, No Appetite, No Other HEENT: No Head Aches, No Visual Changes, No Eye Pain, No Ear Pain, No Dysphasia, No Sinus Congestion, No Post Nasal Drip, No Sore Throat, No Other Pulmonary: No Dyspnea, No Cough, No Pleuritic Chest Pain, No Other Cardiovascular: No: Chest Pain, Palpitations, Orthopnea, Paroxysmal Noc. Dyspnea, Edema, Lt Headedness, Other Focused Exam Lactate Level 07/03/22 13:28: Lactic Acid Level 6.09*H 07/03/22 16:46: Lactic Acid Level 1.56 Objective-Cardiology Exam Last Set of Vital Signs Vital Signs 07/04/22 07/04/22 06:00 07:00 Temp 36.5 Pulse 99 Resp 22 B/P (MAP) 118/61 (82) Pulse Ox 94 O2 Delivery Room Air I&O Intake and Output 07/04/22 00:00 Intake Total 1635 ml Balance 1635 ml Intake Oral 360 ml IV Total 1275 ml # Urine Diapers 3 Daily Weight Change Yes, 14-23 lbs General: Alert, Oriented X3, Cooperative HEENT: Atraumatic, PERRLA Neck: Supple, No JVD, No Thyromegaly Lungs: Clear to Auscultation, Normal Air Movement Heart: Normal S1, Normal S2, No Murmurs, Other (Atrial fibrillation) Abdomen: Normal Bowel Sounds, Soft, No Tenderness, No Hepatosplenomegaly, No Masses Extremities: No Clubbing, No Cyanosis, No Edema, Normal Pulses, No Tenderness/ Swelling Skin: No Rashes, No Breakdown, No Significant Lesion Neuro: Normal Gait, Normal Speech, Strength at 5/5 X4 Ext, Normal Tone, Sensation Intact Psych/Mental Status: Mental Status NL, Mood NL Results Lab Laboratory Tests 07/03/22 13:28 07/03/22 16:46 07/04/22 04:20 A/P-Cardiology Admission Diagnosis Atrial fibrillation Tachycardia Sepsis Acute renal failure Assessment/Plan Atrial fibrillation with rapid ventricular response Borderline hypotensive, could not tolerate Cardizem due to borderline hypotension Responded to IV fluid Planning for TRES and cardioversion today. Fever, chills, increased CRP Questionable underlying sepsis. Receiving antibiotics and septic work-up initiated by primary care physician Troponin 0.4, mildly elevated, probably type II myocardial infarction secondary to tachycardia. Underlying coronary artery disease cannot be entirely excluded Acute renal failure, had lab work in 2019 with renal insufficiency Receiving IV fluids, monitor renal function. Generalized weakness and fatigue. Probably secondary to above. DUGLAS BURNHAM MD Jul 04, 2022 07:39
[2022-07-04] MEDS ORDERED: MIDAZOLAM 2 MG/2 ML (VERSED) VIAL ONE (07:44)
[2022-07-04] MEDS ORDERED: LIDOCAINE 2% VISCOUS 15 ML UDC PO NR (08:00)
--- NOTE | 2022-07-04 08:00 | Cardioversion ---
Cardioversion PROCEDURE PHYSICIAN: Duglas Ramirez DATE OF PROCEDURE: 07/04/22 DIRECT EXTERNAL ELECTRICAL CARDIOVERSION: Indications: Atrial Fibrillation with rapid ventricular rate Preoperative diagnoses: Atrial Fibrillation with rapid ventricular rate Postoperative diagnosis: Sinus rhythm, Successful Electrical Cardioversion Anesthesia: By Anesthesia services Complications: None Specimen: None Contrast: 0 Flouroscopy: none Procedure Details: The patient was brought the geophysical laboratory director after informed consent was taken, all the risks and complications were explained including the risk of stroke. Electrical cardioversion was carried out with anesthesia support with propofol. 200 joules of synchronized shock was delivered through external patches which promptly restored sinus rhythm. The patient tolerated the procedure well. Conclusions: Successful electrical cardioversion and terminating atrial fibrillation DUGLAS RAMIREZ MD Jul 04, 2022 08:00
[2022-07-04] MEDS ORDERED: AMIODARONE FOR BOLUS 150 MG in NS (IVPB) 100 ML IV ONE (09:30)
--- NOTE | 2022-07-04 09:57 | Tele-ICU Progress Note ---
Subjective Date Seen by a Provider: Jul 04, 2022 Time Seen by a Provider: 09:57 Subjective/Events-last exam (Tele-ICU Physician , consultation as per request of PCP Service provided via interactive audio and video telecommunications E-CARE system to a patient admitted to ICU bed in [facility]. Available chart/ vitals / labs / Images reviewed H&P is from ER notes Patient's information available about PMH, Shx, Fhx allergy reviewed inEMR. ROS as per chart and RN report Now in ICU, hemodynamically stable on cardizem gtt Video assessment done using teleICU camera, rest of exam as per RN Discussed with RN. Consultants: roro Hospital course: (07/03) 72M admitted with New onset AFib RVR, possible PNA, ROMANA -07/04 - s/p cardioversion -SINUS A/P Sepsis? . elevated lactate and leukocytosis - received 2 l NS as per sepsis protocol , ordering repeated lactate level - abx initiated in ER , - ? sourse ( x pending , PCT low, UA pending Afib RVR - new dx -07/04 - s/p cardioversion -SINUS , amio gtt - cards consulted - ECHO ordered - AC - lovenox full dose - ? NOAC - ? affordable for this patient PNA , suspected in ER ( NEG covid and flu ) - abx x1 givem no symptoms now - OFF ABX - follow ROMANA/CKD - received 3 l NS , follow UP and labs Hyperglycemia - ISS Anemia - possible delutional , no sign of bleeding Lines : periph , (Central Line Necessity Reviewed) Scott: 07/04 OG: Nutrition: po Analgesia: Anxiety/ delirium VTE Prophylaxis: lovenox full dose Stress Ulcer Prophylaxis: na Plans in collaboration with bedside consultants and IM MDs. Discussed with RN to reach out if any questions or concerns A total of 20 minutes of critical care time was devoted to this patient today, required to treat and/or prevent further deterioration of critical care condition ( as above ) . I am remotely monitoring this patient from another state. I am unable to do the bedside exam, and history/physical and pertinent information is taken from other notes in the computer and bedside staff. . Sepsis Event Evaluation Height, Weight, BMI Height: '" Weight: lbs. oz. kg; 32.66 BMI Method: Focused Exam Lactate Level 07/03/22 13:28: Lactic Acid Level 6.09*H 07/03/22 16:46: Lactic Acid Level 1.56 Exam Exam Patient acknowledged, consented, and participated in this virtual visit which was conducted using real time audio/video Vital Signs Date Time Temp Pulse Resp B/P (MAP) Pulse Ox O2 Delivery O2 Flow Rate FiO2 07/04/22 09:00 73 21 178/82 (114) 95 Room Air 07/04/22 08:00 66 17 165/90 (115) 95 Room Air 07/04/22 07:58 69 07/04/22 07:53 80 07/04/22 07:00 70 11 120/70 (87) 96 Room Air 07/04/22 07:00 36.5 07/04/22 06:00 99 22 118/61 (82) 94 Room Air 07/04/22 05:00 79 21 124/60 (71) 91 Room Air 07/04/22 04:10 90 132/63 07/04/22 04:00 113 27 142/73 (81) 95 Room Air 07/04/22 04:00 92 Room Air 07/04/22 03:30 36.8 Room Air 07/04/22 03:00 90 28 132/63 (70) 97 Room Air 07/04/22 02:00 87 23 125/72 (92) 95 Room Air 07/04/22 01:00 100 10 120/63 (77) 97 Room Air 07/04/22 01:00 100 07/04/22 00:42 94 Room Air 07/04/22 00:00 133 26 115/56 (75) 95 Room Air 07/03/22 23:14 37.0 Room Air 07/03/22 23:00 112 27 97/69 (81) 93 Room Air 07/03/22 22:00 149 12 97/63 (85) 97 Room Air 07/03/22 21:45 124 22 92/63 (69) 93 Room Air 07/03/22 21:15 147 23 94/56 (63) 93 Room Air 07/03/22 21:00 96 Room Air 07/03/22 21:00 123 20 91/57 (59) 94 Room Air 07/03/22 20:54 116 100/70 07/03/22 20:50 94 Room Air 07/03/22 20:49 36.8 Room Air 07/03/22 20:15 121 7 108/64 (88) 96 Room Air 07/03/22 20:00 98 19 88/67 (73) 96 Room Air 07/03/22 19:45 126 18 93/66 (70) 95 Room Air 07/03/22 19:40 116 100/70 07/03/22 19:30 109 19 88/54 (63) 97 Room Air 07/03/22 19:25 116 100/70 07/03/22 19:15 112 9 92/57 (74) 98 Room Air 07/03/22 19:00 132 07/03/22 19:00 132 33 80/67 (71) 95 Room Air 07/03/22 18:00 151 27 100/70 (80) 95 Room Air 07/03/22 17:15 115 10 81/69 (73) 90 Room Air 07/03/22 17:00 147 14 72/59 (63) 95 Room Air 07/03/22 16:45 112 22 100/59 (73) 96 Room Air 07/03/22 16:30 123 19 92/59 (70) 96 Room Air 07/03/22 16:30 37.1 07/03/22 15:53 112 18 80/59 97 07/03/22 13:37 152 110/59 07/03/22 13:37 165 110/59 07/03/22 13:21 37.8 168 20 106/58 (74) 96 Room Air I & O 07/04/22 07:00 Intake Total 2880 ml Output Total 875 ml Balance 2005 ml Height & Weight Height: '" Weight: lbs. oz. 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
[2022-07-04] MEDS: AMIODARONE INJECTION 450 MG in NORMAL SALINE 250 ML IV SCH ×2 (10:12→18:28)
--- NOTE | 2022-07-04 10:25 | Anesthesia-General Post-Op ---
MAC Patient Condition Mental Status/LOC: Same as Preop Cardiovascular: Satisfactory Nausea/Vomiting: Absent Respiratory: Satisfactory Pain: Controlled Complications: Absent Post Op Complications Complications None Follow Up Care/Instructions Patient Instructions None needed. Anesthesiology Discharge Order Discharge Order Patient is doing well, no complaints, stable vital signs, no apparent adverse anesthesia problems. No complications reported per nursing. TIM CHRISTINE CRNA Jul 04, 2022 10:25
[2022-07-04] MEDS: MICONAZOLE 2% POWDER (DESENEX AF) 90 GM TOP SCH ×2 (10:51→20:16)
--- NOTE | 2022-07-04 11:14 | History & Physical ---
ABELARDO GAONA 07/04/22 1114: HPI History of Present Illness: Inderjit Mast is a 72 yo male who was admitted to the ICU from the emergency department for atrial fibrillation with rapid ventricular response. He has been released from [facility] for around 2 weeks and is currently homeless, staying at the [facility]. The patient was picked up by EMS with notable tachycardia at 170 bpm and irregular rhythm. The patient reported to the ED that he had one episode of chest pain on 07/02 that has since resolved, but had nausea, vomiting, and chills throughout the day on 07/03. The patient had EKG obtained in the ED which revealed afib with RVR, prompting cardiology consult. The patient was started on diltiazem with initial hypotension which improved with normal saline. Cardiology indicated plan for TRES and cardioversion on 07/04. Patient's labs on initial presentation at 1328 were significant for elevated WBCs at 16.5 that improved to 11.1 at 0420, as well as elevated PT at 15.2 with low aPTT of 23. Urine was significant for 1+ protein, 2-5 RBCs, Crystals Pr esent, and Moderate Amorphous Sediment. CMP at 1646 revealed Cl of 109 (H), CO2 19 (L), BUN 42 (H), Creatinine 2.28 (H), Glu 143 (H), Calcium 8.1 (L), with repeat labs at 0420 showing Cl 111 (H), CO2 16 (L), BUN 46 (H), Creatinine 1.82 (H), Glu 126 (H), Calcium 7.8 (L), suggesting acute renal failure. Repeat EKG at 0649 suggests persistent but rate-controlled afib with RVR. On the medical student's initial exam at 0811, the patient was unconscious having just completed his TRES and cardioversion. On repeat examination at 0850, the patient is lethargic but able to respond. He notes he has been tremulous for the past 4-5 days. The patient denies any shortness of breath, abdominal pain, diarrhea, constipation, rash, or urinary symptoms. Source: patient Exam Limitations: other (patient recovering from sedation) Date seen by provider: Jul 04, 2022 Time Seen by Provider: 08:50 Attending Physician No,Local Physician PCP Admitting Physician: Cooper Palumbo MD Attending Physician: Cooper Palumbo MD Consult Date of Admission Jul 03, 2022 at 14:39 Home Medications Home Medications Reviewed patient Home Medication Reconciliation performed by pharmacy medication reconciliations electromechanical technician and/or nursing. Patients Allergies have been reviewed. 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 Family Medical History Significant Family History: No Pertinent Family Hx Review of Systems ([facility]) Constitutional: chills Respiratory: No cough, No dyspnea on exertion, No short of breath Cardiovascular: No chest pain Gastrointestinal: No abdominal pain, No constipation, No diarrhea Genitourinary: no symptoms reported Skin: No rash Psychiatric/Neurological: See HPI, Tremors All Other Systems Reviewed Negative Unless Noted: No Reviewed Test Results Reviewed Test Results Lab Laboratory Tests 07/03/22 13:28: White Blood Count 16.5H, Neutrophils (%) (Auto) 86H, Lymphocytes (%) (Auto) 4L, Neutrophils # (Auto) 14.2H, Lymphocytes # (Auto) 0.7L, Monocytes # (Auto) 1.5H, Prothrombin Time 15.2H, Activated Partial Thromboplast Time 23L, Carbon Dioxide Level 15L, Anion Gap 20H, Blood Urea Nitrogen 42H, Creatinine 2.56H, Glucose Level 271H, Lactic Acid Level 6.09*H, Alkaline Phosphatase 171H, Myoglobin 1399.1H, Troponin I 0.040H, C-Reactive Protein High Sensitivity 14.94H 07/03/22 16:46: Carbon Dioxide Level 19L, Blood Urea Nitrogen 42H, Creatinine 2.28H, Glucose Level 143H, Chloride Level 109H, Calcium Level 8.1L 07/03/22 18:26: Glucometer 116H 07/03/22 20:34: Glucometer 133H 07/04/22 02:45: Urine Protein 1+H, Urine RBC (Auto) 1+H, Urine RBC 2-5H, Urine Crystals PRESENTH , Urine Amorphous Sediment MOD REGI URATESH 07/04/22 04:20: White Blood Count 11.1H, Red Blood Count 3.67L, Hemoglobin 10.7#L, Hematocrit 34L, Mean Corpuscular Hemoglobin Concent 31L, Neutrophils (%) (Auto) 76H, N eutrophils # (Auto) 8.5H, Monocytes # (Auto) 1.2H, Chloride Level 111H, Carbon Dioxide Level 16L, Blood Urea Nitrogen 46H, Creatinine 1.82H, Glucose Level 126H , Calcium Level 7.8L, Aspartate Amino Transf (AST/SGOT) 54H, Total Protein 5.6L, Albumin 3.0L, HDL Cholesterol 28L Radiology CHEST 1 VIEW, AP/PA ONLY IMPRESSION: Cardiomegaly and mild central vascular prominence. No focal consolidation or pleural fluid. EKG 07/03/22 13:25: Afib with RVR, heart rate of 171. EKG 07/04/22 06:48: Afib with RVR, heart rate approximately 96 EKG 07/04/22 08:12: Sinus rhythm, heart rate 68 Physical Exam-([facility]) Physical Exam Vital Signs VS - Last 72 Hours, by Label 07/03/22 07/03/22 07/03/22 07/03/22 13:21 13:37 13:37 15:53 Temp 37.8 Pulse 168 165 152 112 Resp 20 18 B/P (MAP) 106/58 (74) 110/59 110/59 80/59 Pulse Ox 96 97 O2 Delivery Room Air 07/03/22 07/03/22 07/03/22 07/03/22 16:30 16:30 16:45 17:00 Temp 37.1 Pulse 123 112 147 Resp 19 22 14 B/P (MAP) 92/59 (70) 100/59 (73) 72/59 (63) Pulse Ox 96 96 95 O2 Delivery Room Air Room Air Room Air 07/03/22 07/03/22 07/03/22 07/03/22 17:15 18:00 19:00 19:00 Pulse 115 151 132 132 Resp 10 27 33 B/P (MAP) 81/69 (73) 100/70 (80) 80/67 (71) Pulse Ox 90 95 95 O2 Delivery Room Air Room Air Room Air 11/707/03/22 07/03/22 07/03/22 19:15 19:25 19:30 19:40 Pulse 112 116 109 116 Resp 9 19 B/P (MAP) 92/57 (74) 100/70 88/54 (63) 100/70 Pulse Ox 98 97 O2 Delivery Room Air Room Air 07/03/22 07/03/22 07/03/22 07/03/22 19:45 20:00 20:15 20:49 Temp 36.8 Pulse 126 98 121 Resp 18 19 7 B/P (MAP) 93/66 (70) 88/67 (73) 108/64 (88) Pulse Ox 95 96 96 O2 Delivery Room Air Room Air Room Air Room Air 07/03/22 07/03/22 07/03/22 07/03/22 20:50 20:54 21:00 21:00 Pulse 116 123 Resp 20 B/P (MAP) 100/70 91/57 (59) Pulse Ox 94 94 96 O2 Delivery Room Air Room Air Room Air 07/03/22 07/03/22 07/03/22 07/03/22 21:15 21:45 22:00 23:00 Pulse 147 124 149 112 Resp 23 22 12 27 B/P (MAP) 94/56 (63) 92/63 (69) 97/63 (85) 97/69 (81) Pulse Ox 93 93 97 93 O2 Delivery Room Air Room Air Room Air Room Air 07/03/22 07/04/22 07/04/22 07/04/22 23:14 00:00 00:42 01:00 Temp 37.0 Pulse 133 100 Resp 26 B/P (MAP) 115/56 (75) Pulse Ox 95 94 O2 Delivery Room Air Room Air Room Air 07/04/22 07/04/22 07/04/22 07/04/22 01:00 02:00 03:00 03:30 Temp 36.8 Pulse 100 87 90 Resp 10 23 28 B/P (MAP) 120/63 (77) 125/72 (92) 132/63 (70) Pulse Ox 97 95 97 O2 Delivery Room Air Room Air Room Air Room Air 07/04/22 07/04/22 07/04/22 07/04/22 04:00 04:00 04:10 05:00 Pulse 113 90 79 Resp 27 21 B/P (MAP) 142/73 (81) 132/63 124/60 (71) Pulse Ox 92 95 91 O2 Delivery Room Air Room Air Room Air 07/04/22 07/04/22 07/04/22 07/04/22 06:00 07:00 07:00 07:53 Temp 36.5 Pulse 99 70 80 Resp 22 11 B/P (MAP) 118/61 (82) 120/70 (87) Pulse Ox 94 96 O2 Delivery Room Air Room Air 07/04/22 07/04/22 07/04/22 07/04/22 07:58 08:00 09:00 10:00 Pulse 69 66 73 67 Resp 17 21 22 B/P (MAP) 165/90 (115) 178/82 (114) 147/74 (98) Pulse Ox 95 95 95 O2 Delivery Room Air Room Air Room Air 07/04/22 10:12 Pulse 73 B/P (MAP) 178/82 Capillary Refill : Less Than 3 Seconds General Appearance: other (Lethargic, slow to respond to questions. Oriented to person, place. Able to identify day of week, month, year, but not day of the month.) Respiratory: lungs clear, normal breath sounds, no respiratory distress Cardiovascular: regular rate, rhythm, no edema, no gallop; No bradycardia, No tachycardia Peripheral Pulses: 2+ Dorsalis Pedis (R), 2+ Left Dors-Pedis (L), 2+ Radial Pulses (R), 2+ Radial Pulses (L) Gastrointestinal: normal bowel sounds, non tender, soft Extremities: no pedal edema Neurologic/Psychiatric: other (Tremulous to the head and neck. Lethargic. Oriented to person, place. Able to correctly state day of the week, month, and year, unable to state precise date.) Skin: No rash Assessment/Plan Assessment/Plan Admission Status: Inpatient Order (span 2 midnights) Reason for Inpatient Admission: Atrial fibrillation with RVR (1) HTN (hypertension) Status: Chronic Assessment & Plan: Continue to monitor blood pressure while in ICU/inpatient. Manage as needed, recommend primary care follow-up for chronic health management following discharge. Qualifiers: Qualified Codes: I10 - Essential (primary) hypertension (2) Acute kidney injury Status: Acute Assessment & Plan: Continue IV fluids for fluid resuscitation. Further workup if labs continue to demonstrate ROMANA. (3) Atrial fibrillation with RVR Status: Acute Assessment & Plan: Continue to monitor heart rate and obtain repeat EKG prior to discharge to ensure cardioversion to sinus rhythm has maintained. Follow up with cardiology. COOPER PALUMBO MD 07/04/22 1322: Home Medications Allergies Coded Allergies: Penicillins (Verified Allergy, Mild, Rash, 07/03/22) [id number] Hx Past Medical History PMHx: (pt denied any known history at time of exam, but meds indicate otherwise) HTN DMII GERD Mood disorder SurgHx: patient denies Assessment/Plan Assessment/Plan (1) Atrial fibrillation with RVR Status: Acute Assessment & Plan: Cardiology consulted, appreciate recommendations. Initially started on cardizem drip and treatment dose enoxaparin. TRES and cardioversion done this am with success, remains on cardizem drip at time of my exam. (2) Acute kidney injury Status: Acute Assessment & Plan: Uncertain baseline, has had elevated creatinine on prior admissions as well. Suspect prerenal ROMANA secondary to poor perfusion with A fib, poor intake and vomiting. Will continue IVF with caution given CXR results, but as BNP nml and Cr improved with fluid and the history of vomiting and limited access to food, will continue for now. Pt also had urinary retention which may have been contributing- states he was leaking urine even prior to admit, suspect BPH. (3) HTN (hypertension) Status: Chronic Assessment & Plan: Having some low BP on cardizem drip, monitor and resume home meds if needed once rate control achieved. Qualifiers: Qualified Codes: I10 - Essential (primary) hypertension (4) Diabetes mellitus, type 2 Status: Chronic Assessment & Plan: Hold home glipizide with ROMANA. Sliding scale insulin, diabetic diet. Qualifiers: Qualified Codes: E11.69 - Type 2 diabetes mellitus with other specified complication (5) Urinary retention Status: Chronic Assessment & Plan: Initially thought to be acute, however, prior med list does show tamsulosin, suspect history of BPH. Scott placed on 07/03-07/04 overnight. Resume home tamsulosin. (6) Mood disorder Status: Chronic Assessment & Plan: Uncertain diagnosis, home med list has olanzepine, but also does include donepezil raising question of dementia. Donepezil held due to interaction with amiodarone. (7) DVT prophylaxis Status: Acute Assessment & Plan: On treatmetn dose enoxaparin for a fib (8) Homelessness Status: Acute Assessment & Plan: social services aide consulted, was released from [facility] not long ago, working with [facility] on getting medications, but was sent to hospital prior. Supervisory-Addendum Brief Verification & Attestation Participated in pt care: history, MDM, physical Personally performed: exam, history, MDM, supervision of care Care discussed with: Medical Student Procedures: n/a I personally saw and examined patient and did my own history and exam which confirmed that documented by the student except as mine differs. See my problem list for my assessment and plan. ABELARDO GAONA Jul 04, 2022 11:14 COOPER PALUMBO MD Jul 04, 2022 13:22
[2022-07-04] MEDS ORDERED: ATOR20TA66 PO (12:48)
[2022-07-04] MEDS ORDERED: MULT-1136 PO (12:48)
[2022-07-04] MEDS ORDERED: DONE5TAB30 PO (12:48)
[2022-07-04] MEDS ORDERED: ACET-2267 PO (12:48)
[2022-07-04] MEDS ORDERED: IBUP-1773 PO (12:48)
[2022-07-04] MEDS ORDERED: OLAN10TA71 PO (12:48)
[2022-07-04] MEDS ORDERED: LISI10TA25 PO (12:48)
[2022-07-04] MEDS ORDERED: FAMO20TA5 PO (12:48)
[2022-07-04] MEDS ORDERED: ALLO100T PO (12:48)
[2022-07-04] MEDS ORDERED: ASPI-1238 PO (12:48)
[2022-07-04] MEDS ORDERED: HYDR12.56 PO (12:48)
[2022-07-04] MEDS ORDERED: GLIP-30 PO (12:48)
[2022-07-04] MEDS ORDERED: ACETAMINOPHEN 500 MG TAB (TYLENOL) PO PRN (13:30)
[2022-07-04] MEDS ORDERED: ENOXAPARIN 120 MG/0.8 ML (LOVENOX) SQ SCH (18:00)
[2022-07-04] MEDS: ALLOPURINOL 100 MG (ZYLOPRIM) TAB PO SCH (18:17)
[2022-07-04] MEDS: RIVAROXABAN 20 MG TABLET (XARELTO) PO SCH (18:17)
[2022-07-04] MEDS: FAMOTIDINE 20 MG (PEPCID) TABLET PO SCH (18:17)
[2022-07-04] MEDS: TAMSULOSIN 0.4 MG (FLOMAX) CAP PO SCH (20:16)
[2022-07-04] MEDS: OLANZapine 5 MG ODT (ZyPREXA ZYDIS) PO SCH (20:16)
[2022-07-04] MEDS ORDERED: NON-FORMULARY MEDICATION 1 EA EA (Olanzapine 10 MG) PO SCH (21:00)
[2022-07-05 05:26] LABS: BASOPHILS # (AUTO) 0.1 10^3/uL (0.0-0.1); BASOPHILS % (AUTO) 1 % (0-10); EOSINOPHILS # (AUTO) 0.2 10^3/uL (0.0-0.3); EOSINOPHILS % (AUTO) 2 % (0-10); HEMATOCRIT 31 % (40-54); HEMOGLOBIN 9.8 g/dL (13.3-17.7); LYMPHOCYTES # (AUTO) 1.1 10^3/uL (1.0-4.0); LYMPHOCYTES % (AUTO) 17 % (12-44); MEAN CORPUSCULAR HEMOGLOBIN 30 pg (25-34); MEAN CORPUSCULAR HGB CONC 32 g/dL (32-36); MEAN CORPUSCULAR VOLUME 93 fL (80-99); MEAN PLATELET VOLUME 10.4 fL (9.0-12.2); MONOCYTES # (AUTO) 0.7 10^3/uL (0.0-1.0); MONOCYTES % (AUTO) 10 % (0-12); NEUTROPHILS # (AUTO) 4.6 10^3/uL (1.8-7.8); NEUTROPHILS % (AUTO) 69 % (42-75); PLATELET COUNT 235 10^3/uL (130-400); WHITE BLOOD COUNT 6.7 10^3/uL (4.3-11.0)
[2022-07-05 05:51] LABS: ALBUMIN 2.8 GM/DL (3.2-4.5)
[2022-07-05 05:52] LABS: CALCIUM 8.1 MG/DL (8.5-10.1)
[2022-07-05 05:53] LABS: TOTAL PROTEIN 5.2 GM/DL (6.4-8.2)
[2022-07-05 05:55] LABS: BILIRUBIN,TOTAL 0.4 MG/DL (0.1-1.0)
[2022-07-05 05:57] LABS: CREATININE SERUM 1.47 MG/DL (0.60-1.30); PHOSPHORUS 2.6 MG/DL (2.3-4.7)
[2022-07-05 06:00] LABS: MAGNESIUM 2.1 MG/DL (1.6-2.4)
[2022-07-05] MEDS: POTASSIUM CL 10MEQ/50ML IVPB 50 ML IV SCH (06:05)
[2022-07-05] MEDS: MAGNESIUM 1 GM/100 ML IVPB 100 ML IV SCH (06:06)
[2022-07-05] MEDS: KCL 20 MEQ TAB (K-DUR) PO SCH (06:06)
[2022-07-05] MEDS: MULTIVIT W/MINERALS TAB (THERAGRAN M) PO SCH (06:09)
[2022-07-05] MEDS: NS IV 1000 ML 1,000 ML IV SCH (07:04)
[2022-07-05] MEDS: MICONAZOLE 2% POWDER (DESENEX AF) 90 GM TOP SCH ×2 (08:11→20:04)
[2022-07-05] MEDS: ASPIRIN E.C. 81 MG (ECOTRIN) TAB PO SCH (08:11)
[2022-07-05] MEDS: PANTOPRAZOLE 40 MG (PROTONIX) TAB PO SCH (08:11)
[2022-07-05] MEDS: TAMSULOSIN 0.4 MG (FLOMAX) CAP PO SCH ×2 (08:11→20:04)
[2022-07-05] MEDS ORDERED: NON-FORMULARY MEDICATION 1 EA EA (Multivitamin 1 EACH) PO SCH (09:00)
--- NOTE | 2022-07-05 09:54 | Cardiology Progress Note ---
Subjective Date Seen by Provider: Jul 05, 2022 Time Seen by Provider: 09:51 Subjective/Events-last exam Patient was seen at bedside, laying down comfortably, complaining of dysphagia, difficulty swallowing. Review of Systems General: No Chills, No Night Sweats, No Fatigue, No Malaise, No Appetite, No Other HEENT: No Head Aches, No Visual Changes, No Eye Pain, No Ear Pain, No Dysphasia, No Sinus Congestion, No Post Nasal Drip, No Sore Throat, No Other Pulmonary: No Dyspnea, No Cough, No Pleuritic Chest Pain, No Other Cardiovascular: No: Chest Pain, Palpitations, Orthopnea, Paroxysmal Noc. Dyspnea, Edema, Lt Headedness, Other Focused Exam Lactate Level 07/03/22 13:28: Lactic Acid Level 6.09*H 07/03/22 16:46: Lactic Acid Level 1.56 Objective-Cardiology Exam Last Set of Vital Signs Vital Signs 07/05/22 07/05/22 07/05/22 07:57 08:00 09:02 Temp 36.3 Pulse 70 Resp 13 B/P (MAP) 131/75 (93) Pulse Ox 94 O2 Delivery Room Air O2 Flow Rate 5.00 I&O Intake and Output 07/05/22 00:00 Intake Total 2948 ml Output Total 1860 ml Balance 1088 ml Intake Oral 720 ml IV Total 2228 ml Output Urine Total 1860 ml General: Alert, Oriented X3, Cooperative HEENT: Atraumatic, PERRLA Neck: Supple, No JVD, No Thyromegaly Lungs: Clear to Auscultation, Normal Air Movement Heart: Regular Rate, Normal S1, Normal S2, No Murmurs Abdomen: Normal Bowel Sounds, Soft, No Tenderness, No Hepatosplenomegaly, No Masses Extremities: No Clubbing, No Cyanosis, No Edema, Normal Pulses, No Tend erness/Swelling Skin: No Rashes, No Breakdown, No Significant Lesion Neuro: Normal Gait, Normal Speech, Strength at 5/5 X4 Ext, Normal Tone, Sensation Intact Psych/Mental Status: Mental Status NL, Mood NL Results Lab Laboratory Tests 07/05/22 05:06 A/P-Cardiology Admission Diagnosis Atrial fibrillation Tachycardia Sepsis Acute renal failure Assessment/Plan Paroxysmal atrial fibrillation with rapid ventricular response Status post TRES with electrical cardioversion Currently in sinus rhythm and maintaining sinus rhythm. Dysphagia, having some difficulty with swallowing solid food. Managed by primary care physician Fever, chills, increased CRP Questionable underlying sepsis. Receiving antibiotics and septic work-up initiated and managed by primary care physician Troponin 0.4, mildly elevated, probably type II myocardial infarction secondary to tachycardia. Underlying coronary artery disease cannot be entirely excluded Planning to evaluate stress test as an outpatient Acute on chronic renal failure, history of chronic renal insufficiency Renal function are better at this point, back to baseline Continue to monitor Generalized weakness and fatigue. Probably secondary to above. Okay for discharge and follow-up as an outpatient DUGLAS BURNHAM MD Jul 05, 2022 09:53
--- NOTE | 2022-07-05 11:30 | Progress Note ---
ABELARDO GAONA 07/05/22 1130: Subjective Subjective/Events-last exam Patient reports he has new concern to day of having "no control over [his] feet." He indicates he is able to move them, but feels it is slower and more difficult than normal and it takes "15 minutes to get out of bed." The patient states his weakness affects both his feet and legs. 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 The patient has further complaint of his chest feeling "stuff" secondary to postnasal drip, though he denies any shortness of breath, chest pain, abdominal pain, or cough. Patient has no other concerns at this time. Review of Systems General: Chills Pulmonary: No Dyspnea, No Pleuritic Chest Pain Cardiovascular: No: Chest Pain, Edema Gastrointestinal: No: Nausea, Vomiting, Abdominal Pain, Constipation Genitourinary: Other (Scott catheter in place) Neurological: Weakness Focused Exam Lactate Level 07/03/22 13:28: Lactic Acid Level 6.09*H 07/03/22 16:46: Lactic Acid Level 1.56 Objective Exam Last Set of Vital Signs Vital Signs Date Time Temp Pulse Resp B/P (MAP) Pulse Ox O2 Delivery O2 Flow Rate FiO2 07/05/22 10:32 96 OxyMask 5.00 07/05/22 10:00 79 10 160/79 (106) 07/05/22 07:57 36.3 Capillary Refill : Less Than 3 Seconds I&O Intake and Output 07/05/22 00:00 Intake Total 2948 ml Output Total 1860 ml Balance 1088 ml Intake Oral 720 ml IV Total 2228 ml Output Urine Total 1860 ml General: Alert, Oriented X3, Mild Distress HEENT: Atraumatic Neck: Supple Lungs: Clear to Auscultation, Normal Air Movement Heart: Regular Rate, Normal S1, Normal S2, No Murmurs Extremities: No Edema Skin: No Rashes Neuro: Other (tremulous to the head and bilateral hands, worse with handgrip. CN II-XII grossly intact and symmetrical. Sensation and strength intact and symmetrical, 5/5 bilaterally to upper and lower extremities.) Results/Procedures Lab Laboratory Tests 07/04/22 12:01: Glucometer 160H 07/04/22 15:21: Glucometer 126H 07/04/22 20:16: Glucometer 188H 07/05/22 05:06: White Blood Count 6.7, Red Blood Count 3.32L, Hemoglobin 9.8L, Hematocrit 31L, Mean Corpuscular Volume 93, Mean Corpuscular Hemoglobin 30, Mean Corpuscular Hemoglobin Concent 32, Red Cell Distribution Width 13.9, Platelet Count 235, Mean Platelet Volume 10.4, Immature Granulocyte % (Auto) 1, Neutrophils (%) (Auto) 69, Lymphocytes (%) (Auto) 17, Monocytes (%) (Auto) 10, Eosinophils (%) (Auto) 2, Basophils (%) (Auto) 1, Neutrophils # (Auto) 4.6, Lymphocytes # (Auto) 1.1, Monocytes # (Auto) 0.7, Eosinophils # (Auto) 0.2, Basophils # (Auto) 0.1, Immature Granulocyte # (Auto) 0.1, Sodium Level 141, Potassium Level 4.0, Chloride Level 115H, Carbon Dioxide Level 18L, Anion Gap 8, Blood Urea Nitrogen 36H, Creatinine 1.47H, Estimat Glomerular Filtration Rate 50, BUN/Creatinine Ratio 24, Glucose Level 127H, Calcium Level 8.1L, Corrected Calcium 9.1, Phosphorus Level 2.6, Magnesium Level 2.1, Total Bilirubin 0.4, Aspartate Amino Transf (AST/SGOT) 37H, Alanine Aminotransferase (ALT/SGPT) 29, Alkaline Phosphat ase 133, Total Protein 5.2L, Albumin 2.8L 07/05/22 10:36: Glucometer 188H Microbiology 07/03/22 MRSA Screen - Final, Complete MRSA not isolated 07/03/22 Blood Culture - Preliminary, Resulted No growth Radiology CHEST 1 VIEW, AP/PA ONLY IMPRESSION: Cardiomegaly and mild central vascular prominence. No focal consolidation or pleural fluid. Procedures EKG 07/03/22 13:25: Afib with RVR, heart rate of 171. EKG 07/04/22 06:48: Afib with RVR, heart rate approximately 96 EKG 07/04/22 08:12: Sinus rhythm, heart rate 68 Assessment/Plan Assessment/Plan Admission Dx Afib with RVR Admission Status: Inpatient Order (span 2 midnights) Reason for Inpatient Admission: Patient has afib with RVR requiring multiple cardiac medication drips IV. (1) Atrial fibrillation with RVR Status: Acute Assessment & Plan: Resolved following cardioversion at this time. Consulted with cardiology, stopping amiodarone and diltiazem today and moving patient from ICU to inpatient care. (2) Acute kidney injury Status: Acute Assessment & Plan: BUN and creatinine improving from previous values, continue to monitor and encourage patient to push fluids PO. (3) HTN (hypertension) Status: Chronic Assessment & Plan: Having some low BP on cardizem drip, monitor and resume home meds if needed once rate control achieved. Qualifiers: Qualified Codes: I10 - Essential (primary) hypertension (4) Diabetes mellitus, type 2 Status: Chronic Assessment & Plan: Hold home glipizide with ROMANA. Sliding scale insulin, diabetic diet. Qualifiers: Qualified Codes: E11.69 - Type 2 diabetes mellitus with other specified complication (5) Urinary retention Status: Chronic Assessment & Plan: Initially thought to be acute, however, prior med list does show tamsulosin, suspect history of BPH. Scott placed on 07/03-07/04 overnight, removal today to test for proper urinary control. Resume home tamsulosin. (6) Mood disorder Status: Chronic Assessment & Plan: Uncertain diagnosis, home med list has olanzepine, but also does include donepezil raising question of dementia. Donepezil held due to interaction with amiodarone. (7) DVT prophylaxis Status: Acute Assessment & Plan: On treatment dose enoxaparin for a fib (8) Homelessness Status: Acute Assessment & Plan: instructional services specialist consulted, was released from residential not long ago, working with [facility] on getting medications, but was sent to hospital prior. (9) Tremor of face and hands Status: Acute Assessment & Plan: Continue to monitor for possible worsening of the tremor. Primary differential at this time is essential tremor, consider Parkinson's Disease, Yordy's Disease, Augusta's chorea, etc. COOPER PALUMBO MD 07/05/22 0799: Supervisory-Addendum Brief Verification & Attestation Participated in pt care: history, MDM, physical Personally performed: exam, history, MDM, supervision of care Care discussed with: Medical Student Procedures: n/a I personally saw and examined patient and did my own history and exam which confirmed that documented by the medical student. Minimal tremor at time of my e xam, suspect ET. I directed the plan of care as documented by the medical student. Clinically strength is normal, will have PT eval. ABELARDO GAONA Jul 05, 2022 11:30 COOPER PALUMBO MD Jul 05, 2022 16:11
--- NOTE | 2022-07-05 11:48 | Tele-ICU Progress Note ---
Subjective Date Seen by a Provider: Jul 05, 2022 Time Seen by a Provider: 11:44 Subjective/Events-last exam (Tele-ICU Physician , Progress Note ) Service provided via interactive audio and video telecommunications E-CARE system to a patient admitted to ICU bed in [facility]. Available chart/ vitals / labs / Images reviewed Video assessment done using teleICU camera, rest of exam as per RN Discussed with RN Events overnight : Afebrile hemodynamically stable Respiratory - ra I/O = pos Drips: Pressors- no Consultants: roro Hospital course: (07/03) 72M admitted with New onset AFib RVR, possible PNA, ROMANA -07/04 - s/p cardioversion -SINUS . ECHO 07/04/22- EF 60 % , mild MR A/P Sepsis? . elevated lactate and leukocytosis - received 2 l NS as per sepsis protocol , ordering repeated lactate level - abx initiated in ER , - ? sourse ( cx pending , PCT low, UA pending- OFF ABX NOW Afib RVR - new dx -07/04 - s/p cardioversion -SINUS , amio gtt - cards consulted - ECHO 07/04/22- EF 60 % , mild MR - AC - xarelto PNA , suspected in ER ( NEG covid and flu ) - abx x1 given no symptoms now - OFF ABX - follow ROMANA/CKD - keep improving with hydration , follow UP and labs Hyperglycemia - ISS Anemia - possible delutional , no sign of bleeding Patient is step-down status (not ICU), will sign off thank you Lines : periph , (Central Line Necessity Reviewed) Scott: 07/04 - NEED TO TRY TO REMOVE OG: Nutrition: po Analgesia: Anxiety/ delirium VTE Prophylaxis:xarelto Stress Ulcer Prophylaxis: na Plans in collaboration with bedside consultants and IM MDs. Discussed with RN to reach out if any questions or concerns A total of 10 minutes of critical care time was devoted to this patient today, required to treat and/or prevent further deterioration of critical care condition ( as above ) . I am remotely monitoring this patient from another state. I am unable to do the bedside exam, and history/physical and pertinent information is taken from other notes in the computer and bedside staff. . Sepsis Event Evaluation Height, Weight, BMI Height: '" Weight: lbs. oz. kg; 32.66 BMI Method: Focused Exam Lactate Level 07/03/22 13:28: Lactic Acid Level 6.09*H 07/03/22 16:46: Lactic Acid Level 1.56 Exam Exam Patient acknowledged, consented, and participated in this virtual visit which was conducted using real time audio/video Vital Signs Date Time Temp Pulse Resp B/P (MAP) Pulse Ox O2 Delivery O2 Flow Rate FiO2 07/05/22 10:32 96 OxyMask 5.00 07/05/22 10:00 79 10 160/79 (106) 96 OxyMask 5.00 07/05/22 09:02 94 Room Air 07/05/22 08:00 70 13 131/75 (93) 97 OxyMask 5.00 07/05/22 07:57 36.3 07/05/22 07:39 69 07/05/22 07:00 68 21 128/69 (88) 100 OxyMask 5.00 07/05/22 06:00 66 20 158/76 (107) 99 OxyMask 5.00 07/05/22 05:00 74 28 139/74 (94) 100 OxyMask 5.00 07/05/22 04:00 72 25 130/66 (84) 99 OxyMask 5.00 07/05/22 04:00 92 OxyMask 5.00 07/05/22 04:00 92 OxyMask 5.00 07/05/22 04:00 36.7 07/05/22 03:00 75 14 119/69 (86) 97 Nasal Cannula 2.00 07/05/22 02:00 74 27 123/59 (71) 97 Nasal Cannula 2.00 07/05/22 01:52 75 12 98 Nasal Cannula 2.00 07/05/22 01:00 75 07/05/22 01:00 75 16 136/67 (90) 95 Room Air 07/05/22 00:00 37.0 07/05/22 00:00 72 20 136/61 (86) 96 Room Air 07/05/22 00:00 95 Room Air 07/04/22 23:00 80 11 145/72 (102) 97 Room Air 07/04/22 22:00 74 38 154/84 (110) 94 Room Air 07/04/22 21:00 74 20 144/74 (94) 93 Room Air 07/04/22 20:00 76 18 158/82 (109) 95 Room Air 07/04/22 20:00 93 Room Air 07/04/22 19:55 36.5 07/04/22 19:00 79 28 161/81 (106) 94 Room Air 07/04/22 19:00 79 07/04/22 18:18 77 141/71 07/04/22 18:00 77 23 141/71 (94) 94 Room Air 07/04/22 17:00 72 26 169/84 (112) 95 Room Air 07/04/22 16:28 96 Room Air 07/04/22 16:00 76 34 133/68 (89) 96 Room Air 07/04/22 15:29 37.6 07/04/22 15:00 71 20 142/72 (95) 89 Room Air 07/04/22 14:00 76 32 180/93 (122) 94 Room Air 07/04/22 13:34 77 07/04/22 13:00 76 32 194/82 (119) 93 Room Air 07/04/22 12:00 95 Room Air 07/04/22 12:00 76 23 144/103 (117) 97 Room Air 07/04/22 12:00 35.8 I & O 07/05/22 07:00 Intake Total 1703 ml Output Total 1500 ml Balance 203 ml Height & Weight Height: '" Weight: lbs. oz. kg; 32.66 BMI Method: General Appearance: WD/WN, Mild Distress HEENT: PERRL/EOMI, Normal ENT Inspection Neck: Normal Inspection; No JVD Respiratory: Lungs Clear, Normal Breath Sounds, No Accessory Muscle Use, No Respiratory Distress Cardiovascular: No Edema, No Murmur, Irregularly Irregular, Tachycardia Capillary Refill: Less Than 3 Seconds Peripheral Pulses: 2+ Dorsalis Pedis (R), 2+ Left Dors-Pedis (L), 2+ Radial Pulses (R), 2+ Radial Pulses (L) Gastrointestinal: normal bowel sounds, non tender, soft Extremity: Normal Inspection, Non Tender, No Pedal Edema Neurologic/Psychiatric: Alert, Oriented x3, No Motor/Sensory Deficits, Normal 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
--- NOTE | 2022-07-05 15:40 | Physical Therapy Evaluation ---
PT Evaluation-General Medical Diagnosis Admission Date Jul 03, 2022 at 14:39 Medical Diagnosis: A-fib with RVR Onset Date: Jul 04, 2022 Therapy Diagnosis Therapy Diagnosis: Gait deficit, strength deficit Precautions Precautions/Isolations: Fall Prevention, Standard Precautions Weight Bear Status Right Lower Extremity: Right Full Weight Bearing Left Lower Extremity: Left Full Weight Bearing Referral Physician: Dr. Atwood Reason for Referral: Evaluation/Treatment, Strengthening Medical History Reviewed History: Yes Social History Current Living Status: Homeless Prior Prior Level of Function SCALE: Activities may be completed with or without assistive devices. 7-Lsekokzrdb-sdvxkuv completes the activity by him/herself with no assistance from a helper. 5-Set-up or Clean-up Assistance-helper sets up or cleans up; patient completes activity. [place] assists only prior to or following the activity. 4-Supervision or Touching Assistance-helper provides verbal cues and/or touching/steadying and/or contact guard assistance as patient completes activity. Assistance may be provided throughout the activity or intermittently. 3-Partial/Moderate Assistance-helper does LESS THAN HALF the effort. Garland lifts, holds or supports trunk or limbs, but provides less than half the effort. 2-Substantial/Maximal Assistance-helper does MORE THAN HALF the effort. [place] lifts or holds trunk or limbs and provides more than half the effort. 4-Zhnkhtrmc-bgalof does ALL the effort. Patient does none of the effort to complete the activity. Or, the assistance of 2 or more helpers is required for the patient to complete the activity. If activity was not attempted, code reason: 7-Patient Refused. 9-Not Applicable-not attempted and the patient did not perform the activity before the current illness, exacerbation or injury. 10-Not Attempted due to Environmental Limitations-(lack of equipment, weather restraints, etc.). 88-Not Attempted due to Medical Conditions or Safety Concerns. Bed Mobility: 6 Transfers (B,C,W/C): 6 Gait: 6 Stairs: 6 Indoor Mobility (Ambulation): Independent Stairs: Independent Prior Device Use: Cane PT Evaluation-Current Subjective Patient sitting upright in bed upon PT arrival, agreeable to treatment. Reports 0/10 pain currently. He states, "I just have no control from here (points to knees) down." Objective Patient Orientation: Person, Place, Time, Situation Attachments: Scott Catheter ROM/Strength ROM Lower Extremities WFLs bilaterally all planes Strength Lower Extremities 4+/5 bilaterally all planes Sensory Vision: Functional Hearing: Functional Sensation Right Lower Extremit: Intact Sensation Left Lower Extremity: Intact Transfers Roll Left to Right (QC): 4 Sit to Lying (QC): 4 Lying to Sitting/Side of Bed(Q: 4 Sit to Stand (QC): 4 Chair/Qji-qz-Puqab Xfer(QC): 4 Gait Does the Patient Walk?: Yes Mode of Locomotion: Walk Anticipated Mode of Locomotion: Walk Walk 10 feet (QC): 4 Walk 50 ft with 2 Turns(QC): 4 Walk 150 ft (QC): 4 Distance: 200 Gait Assistive Device: FWW Balance Sitting Static: Fair Sitting Dynamic: Fair Standing Static: Fair Standing Dynamic: Fair Assessment/Needs Patient tolerated treatment/evaluation well. Patient performs all bed mobility and transfers with SBA. Patient has Scott and reports "My testicles are raw, they hurt very bad." This limits his overall mobility and he requires breaks at various times due to pain and needing to adjust. Patient ambulates 200 feet with FWW, with SBA and verbal cues for safety, posture, conservation of energy. Patient in bed post treatment with all needs met, nursing notified, call light in hand. Rehab Potential: Fair PT Chart Writer Goals Longterm Goals PT Chart Writer Goals Time Frame: Jul 15, 2022 Roll Left & Right (QC): 6 Sit to Lying (QC): 6 Lying-Sitting on Side/Bed(QC): 6 Sit to Stand (QC): 6 Chair/Nnl-qi-Juuuk Xfer(QC): 6 Toilet Transfer (QC): 6 Does the Patient Walk: Yes Walk 10 feet (QC): 6 Walk 50ft with 2 Turns (QC): 6 Walk 150 ft (QC): 6 PT Plan Problem List Problem List: Activity Tolerance, Functional Strength, Safety, Balance, Gait, Transfer, Bed Mobility, ROM Treatment/Plan Treatment Plan: Continue Plan of Care Treatment Plan: Bed Mobility, Education, Functional Activity Beatrice, Functional Strength, Group Therapy, Gait, Safety, Therapeutic Exercise, Transfers Treatment Duration: Jul 26, 2022 Frequency: 6 times per week Estimated Hrs Per Day: .25 hour per day Patient and/or Family Agrees t: Yes Safety Risks/Education Patient Education: Gait Training, Transfer Techniques Teaching Recipient: Patient Teaching Methods: Demonstration, Discussion Response to Teaching: Verbalize Understanding, Return Demonstration Time Time In: 1507 Time Out: 1534 DATE: Jul 05, 2022 Total Billed Treatment Time: 27 Total Billed Treatment Visit, Tammy Padgett JOHN A PT Jul 05, 2022 15:40
--- NOTE | 2022-07-05 15:42 | Occupational Therapy Eval ---
OT Evaluation-General/PLF Medical Diagnosis Admission Date Jul 03, 2022 at 14:39 Medical Diagnosis: ROMANA, afib with RVR Onset Date: Jul 03, 2022 Therapy Diagnosis Therapy Diagnosis: decreased ADL status Precautions Precautions/Isolations: Fall Prevention, Standard Precautions Referral Physician: Rai Referral Reason: Evaluation/Treatment Medical History Additional Medical History HTN, DM, GERD, mood disorder Current History ED due to tachycardia and irregular rhythm upon EMS arrival. Admit to ICU with Afib with RVR Social History Current Living Status: Homeless ADL-Prior Level of Function SCALE: Activities may be completed with or without assistive devices. 4-Qzucjqsbkt-ghaxgjt completes the activity by him/herself with no assistance from a helper. 5-Set-up or Clean-up Assistance-helper sets up or cleans up; patient completes activity. [place] assists only prior to or following the activity. 4-Supervision or Touching Assistance-helper provides verbal cues and/or touching/steadying and/or contact guard assistance as patient completes activity. Assistance may be provided throughout the activity or intermittently. 3-Partial/Moderate Assistance-helper does LESS THAN HALF the effort. [place] lifts, holds or supports trunk or limbs, but provides less than half the effort. 2-Substantial/Maximal Assistance-helper does MORE THAN HALF the effort. [place] lifts or holds trunk or limbs and provides more than half the effort. 5-Svxjwfkqk-okdvqa does ALL the effort. Patient does none of the effort to complete the activity. Or, the assistance of 2 or more helpers is required for the patient to complete the activity. If activity was not attempted, code reason: 7-Patient Refused. 9-Not Applicable-not attempted and the patient did not perform the activity before the current illness, exacerbation or injury. 10-Not Attempted due to Environmental Limitations-(lack of equipment, weather restraints, etc.). 88-Not Attempted due to Medical Conditions or Safety Concerns. ADL PLOF Comments Pt reports IND with ADLs and functional mobility using a cane. he was released from [facility] 2 weeks ago. Self Care: Independent Functional Cognition: Independent OT Current Status Subjective Pt in bed, eating lunch. Worker from [facility] present during tx. Pt agreeable to OT evaluation/tx, c/o pain in scrotum due to raw skin. Pt very talkative throughout tx, requiring redirection to task/conversation Mental Status/Objective Patient Orientation: Person, Place, Situation Attachments: Bhagat Catheter Current Hand Dominance: Right Upper Extremity ROM WFL, BUE shoulder flexion to approx 150 degrees Upper Extremity Sensation WFL Upper Extremity Strength RUE grossly 5/5, LUE grossly 4+/5 ADL-Treatment Eating (QC): 5 (set up. Assist to cut food.) Oral Hygiene (QC): 5 (Per clincial judgment.) Toileting Hygiene (QC): 7 (Pt declined need to have BM, has bhagat catheter.) Other Treatments Pt in bed eating lunch by stabbing food with fork instead of cutting his food. Pt had difficulty getting chicken onto his fork. Set up provided with assistance cutting food. Pt transferred supine to sit EOB, SBA, participated in UE screen. When pt completed BUE shoulder flexion, SBA provided for balance due to pt leaning backwards in bed. Pt used FWW to perform functional mobility in prescott ways, 200', SBA, then returned to his room. Pt transferred supine. HOB elevated and lunch tray placed back in front of pt. Post tx, pt in bed, call light in reach and all needs met. Education OT Patient Education: Correct positioning, Energy conservation, Modified ADL techniques, Progress toward Goal/Update tx plan, Purpose of tx/functional activities, Rehab process Teaching Recipient: Patient Teaching Methods: Discussion Response to Teaching: Verbalize Understanding OT Manager Sales Training Goals Skilled Nursing Goals Time Frame: Jul 14, 2022 Eating (QC): 6 Oral Hygiene (QC): 6 Toileting Hygiene (QC): 6 Shower/Bathe Self (QC): 6 Upper Body Dressing (QC): 6 Lower Body Dressing (QC): 6 On/Off Footwear (QC): 6 Additional Goals: 1-Demonstrate ADL Tasks, 2-Verbalize Understanding, 3- ImproveStrength/Beatrice 1=Demonstrate adherence to instructed precautions during ADL tasks. 2=Patient will verbalize/demonstrate understanding of assistive devices/modifications for ADL. 3=Patient will improve strength/tolerance for activity to enable patient to perform ADL's. OT Education/Plan Problem List/Assessment Assessment: Decreased Activ Tolerance, Decreased Safety Aware, Impaired Funct Balance, Impaired I ADL's, Impaired Self-Care Skills Pt would benefit from short term skilled OT services in order to increase safety and independence with ADLS and functional mobility/transfers, and to improve BUE activity tolerance in order to maximize LOF for return home. Discharge Recommendations Plan/Recommendations: Continue POC Treatment Plan/Plan of Care Patient would benefit from OT for education, treatment and training to promote independence in ADL's, mobility, safety and/or upper extremity function for ADL's. Plan of Care: ADL Retraining, Functional Mobility, UE Funct Exercise/Act Treatment Duration: Jul 14, 2022 Frequency: 3 times per week (3-5 times per week) Estimated Hrs Per Day: .25 hour per day Agreement: Yes Rehab Potential: Fair Time Start Time: 15:15 Stop Time: 14:33 DATE: Jul 14, 2022 Total Time Billed (hr/min): 18 Billed Treatment Time 1, TIAGO SCHMIDT OT Jul 05, 2022 15:42
[2022-07-05] MEDS: FAMOTIDINE 20 MG (PEPCID) TABLET PO SCH (16:36)
[2022-07-05] MEDS: ALLOPURINOL 100 MG (ZYLOPRIM) TAB PO SCH (16:36)
[2022-07-05] MEDS: RIVAROXABAN 20 MG TABLET (XARELTO) PO SCH (16:36)
[2022-07-05] MEDS ORDERED: CALCIUM CARBONATE 500 MG (TUMS) TAB.CHEW PO PRN (19:15)
[2022-07-05] MEDS: AMIODARONE 200 MG (CORDARONE) TAB PO SCH (20:03)
[2022-07-05] MEDS: OLANZapine 5 MG ODT (ZyPREXA ZYDIS) PO SCH (20:04)
[2022-07-06] MEDS: MULTIVIT W/MINERALS TAB (THERAGRAN M) PO SCH (05:56)
[2022-07-06 06:00] LABS: BASOPHILS # (AUTO) 0.1 10^3/uL (0.0-0.1); BASOPHILS % (AUTO) 1 % (0-10); EOSINOPHILS # (AUTO) 0.3 10^3/uL (0.0-0.3); EOSINOPHILS % (AUTO) 5 % (0-10); HEMATOCRIT 30 % (40-54); HEMOGLOBIN 9.7 g/dL (13.3-17.7); LYMPHOCYTES # (AUTO) 1.3 10^3/uL (1.0-4.0); LYMPHOCYTES % (AUTO) 20 % (12-44); MEAN CORPUSCULAR HEMOGLOBIN 30 pg (25-34); MEAN CORPUSCULAR HGB CONC 32 g/dL (32-36); MEAN CORPUSCULAR VOLUME 92 fL (80-99); MEAN PLATELET VOLUME 10.1 fL (9.0-12.2); MONOCYTES # (AUTO) 0.8 10^3/uL (0.0-1.0); MONOCYTES % (AUTO) 12 % (0-12); NEUTROPHILS # (AUTO) 3.9 10^3/uL (1.8-7.8); NEUTROPHILS % (AUTO) 61 % (42-75); PLATELET COUNT 260 10^3/uL (130-400); WHITE BLOOD COUNT 6.4 10^3/uL (4.3-11.0)
[2022-07-06 06:07] LABS: ALBUMIN 2.9 GM/DL (3.2-4.5); POTASSIUM 4.1 MMOL/L (3.6-5.0)
[2022-07-06 06:09] LABS: CALCIUM 8.3 MG/DL (8.5-10.1)
[2022-07-06 06:10] LABS: TOTAL PROTEIN 5.2 GM/DL (6.4-8.2)
[2022-07-06 06:11] LABS: BILIRUBIN,TOTAL 0.3 MG/DL (0.1-1.0)
[2022-07-06 06:13] LABS: CREATININE SERUM 1.38 MG/DL (0.60-1.30)
[2022-07-06 06:16] LABS: MAGNESIUM 1.8 MG/DL (1.6-2.4)
[2022-07-06 08:21] VITALS: BP 137/61
--- NOTE | 2022-07-06 08:24 | Progress Note ---
ABELARDO GAONA 07/06/22 0824: Subjective Subjective/Events-last exam Patient reports his strength has improved since yesterday, and he feels he is more coordinated as well. The patient remarks he had one episode of chest pain yesterday starting when he awoke around 0700 and resolving around 0900 after eating breakfast. He notes it was present on physician evaluation yesterday, but he did not mention it. The patient describes the pain as a dull pain alternating from his left lateral chest wall to his right lateral chest wall approximately every 30 seconds. The pain has not recurred since resolution. The patient denies any associated shortness of breath, neck pain, left arm pain, abdominal pain, nausea, or vomiting. He states his tremor has persisted without worsening or improvement. The patient denies any current chills, chest pain, SOB, abdominal pain, nausea, vomiting, or cough. Patient's vital signs at the time of his chest pain yesterday were normal, with BP around 130/70 and pulse in the high 60s. Review of Systems General: No Chills HEENT: No Head Aches Pulmonary: No Dyspnea, No Cough Cardiovascular: No: Chest Pain, Palpitations Gastrointestinal: No: Nausea, Vomiting, Abdominal Pain Focused Exam Lactate Level 07/03/22 13:28: Lactic Acid Level 6.09*H 07/03/22 16:46: Lactic Acid Level 1.56 Objective Exam Last Set of Vital Signs Vital Signs Date Time Temp Pulse Resp B/P (MAP) Pulse Ox O2 Delivery O2 Flow Rate FiO2 07/06/22 07:25 36.4 75 18 137/68 (91) 97 Room Air 07/05/22 16:00 5.00 Capillary Refill : Less Than 3 Seconds I&O Intake and Output 07/06/22 00:00 Intake Total 2650 ml Output Total 1690 ml Balance 960 ml Intake Oral 1650 ml IV Total 1000 ml Output Urine Total 1690 ml # Bowel Movements 1 General: Alert, Cooperative, No Acute Distress HEENT: Atraumatic Neck: Supple Lungs: Clear to Auscultation, Normal Air Movement Heart: Regular Rate, Normal S1, Normal S2, No Murmurs Abdomen: Normal Bowel Sounds, Soft, No Tenderness Extremities: No Clubbing, No Cyanosis, No Edema, Normal Pulses Skin: No Rashes Neuro: Strength at 5/5 X4 Ext, Other (Fine tremors to the head and upper extremities, worse with use of those muscles.) Other physical findings Scott catheter in place Results/Procedures Lab Laboratory Tests 07/05/22 10:36: Glucometer 188H 07/05/22 16:06: Glucometer 155H 07/05/22 20:30: Glucometer 135H 07/06/22 05:20: White Blood Count 6.4, Red Blood Count 3.29L, Hemoglobin 9.7L, Hematocrit 30L, Mean Corpuscular Volume 92, Mean Corpuscular Hemoglobin 30, Mean Corpuscular Hemoglobin Concent 32, Red Cell Distribution Width 13.7, Platelet Count 260, Mean Platelet Volume 10.1, Immature Granulocyte % (Auto) 2, Neutrophils (%) ( Auto) 61, Lymphocytes (%) (Auto) 20, Monocytes (%) (Auto) 12, Eosinophils (%) (Auto) 5, Basophils (%) (Auto) 1, Neutrophils # (Auto) 3.9, Lymphocytes # (Auto) 1.3, Monocytes # (Auto) 0.8, Eosinophils # (Auto) 0.3, Basophils # (Auto) 0.1, Immature Granulocyte # (Auto) 0.1, Sodium Level 142, Potassium Level 4.1, Chloride Level 115H, Carbon Dioxide Level 19L, Anion Gap 8, Blood Urea Nitrogen 27H, Creatinine 1.38H, Estimat Glomerular Filtration Rate 54, BUN/Creatinine Ratio 20, Glucose Level 124H, Calcium Level 8.3L, Corrected Calcium 9.2, Magnesium Level 1.8, Total Bilirubin 0.3, Aspartate Amino Transf (AST/SGOT) 35H, Alanine Aminotransferase (ALT/SGPT) 30, Alkaline Phosphatase 155H, Total Protein 5.2L, Albumin 2.9L Microbiology 07/03/22 MRSA Screen - Final, Complete MRSA not isolated 07/03/22 Blood Culture - Preliminary, Resulted No growth Radiology CHEST 1 VIEW, AP/PA ONLY IMPRESSION: Cardiomegaly and mild central vascular prominence. No focal consolidation or pleural fluid. Procedures EKG 07/03/22 13:25: Afib with RVR, heart rate of 171. EKG 07/04/22 06:48: Afib with RVR, heart rate approximately 96 EKG 07/04/22 08:12: Sinus rhythm, heart rate 68 Assessment/Plan Assessment/Plan Admission Dx Afib with RVR Admission Status: Inpatient Order (span 2 midnights) Reason for Inpatient Admission: Afib with RVR (1) Atrial fibrillation with RVR Status: Acute Assessment & Plan: Resolved following cardioversion at this time. Consulted with cardiology, patient taking PO amiodarone, being managed by cardiology. (2) Acute kidney injury Status: Acute Assessment & Plan: BUN and creatinine improving from previous values, continue to monitor and encourage patient to push fluids PO. (3) HTN (hypertension) Status: Chronic Assessment & Plan: BPs have stabilized within normal levels on home medications. Qualifiers: Qualified Codes: I10 - Essential (primary) hypertension (4) Diabetes mellitus, type 2 Status: Chronic Assessment & Plan: Hold home glipizide with ROMANA. Sliding scale insulin, diabetic diet. Qualifiers: Qualified Codes: E11.69 - Type 2 diabetes mellitus with other specified complication (5) Urinary retention Status: Acute Assessment & Plan: Home tamsulosin restarted. Scott catheter in place. (6) Mood disorder Status: Chronic Assessment & Plan: Uncertain diagnosis, home med list has olanzepine, but also does include donepezil raising question of dementia. Donepezil held due to int eraction with amiodarone. (7) DVT prophylaxis Status: Resolved Assessment & Plan: On treatment dose rivaroxaban for a fib (8) Homelessness Status: Chronic Assessment & Plan: fiscal services director consulted, was released from [facility] not long ago, working with [facility] on getting medications, but was sent to hospital prior. (9) Tremor of face and hands Status: Chronic Assessment & Plan: Continue to monitor for possible worsening of the tremor. Primary differential at this time is essential tremor, consider Parkinson's Disease, Yordy's Disease, Scott's chorea, etc. Clinical Quality Measures Admission Status Admission Dx Afib with RVR Admission Status: Inpatient Order (span 2 midnights) Reason for Inpatient Admission: Afib with RVR COOPER PALUMBO MD 07/06/22 [id number]: Supervisory-Addendum Brief Verification & Attestation Participated in pt care: history, MDM, physical Personally performed: exam, history, MDM, supervision of care Care discussed with: Medical Student Procedures: n/a I personally saw and examined patient and repeated the history and exam which confirm that documented by the medical student. He has been working with PT and does need some further therapies, looking for placement at SNF. [facility] was not d/c on transfer, called nurse at this time and he will remove. ABELARDO GAONA Jul 06, 2022 08:24 COOPER PALUMBO MD Jul 06, 2022 17:12
--- NOTE | 2022-07-06 08:25 | Cardiology Progress Note ---
Subjective Date Seen by Provider: Jul 06, 2022 Time Seen by Provider: 08:24 Subjective/Events-last exam Patient was seen at bedside, laying down comfortably, feeling better today. Review of Systems General: No Chills, No Night Sweats, No Fatigue, No Malaise, No Appetite, No Other HEENT: No Head Aches, No Visual Changes, No Eye Pain, No Ear Pain, No Dysphasia, No Sinus Congestion, No Post Nasal Drip, No Sore Throat, No Other Pulmonary: No Dyspnea, No Cough, No Pleuritic Chest Pain, No Other Cardiovascular: No: Chest Pain, Palpitations, Orthopnea, Paroxysmal Noc. Dyspnea, Edema, Lt Headedness, Other Focused Exam Lactate Level 07/03/22 13:28: Lactic Acid Level 6.09*H 07/03/22 16:46: Lactic Acid Level 1.56 Objective-Cardiology Exam Last Set of Vital Signs Vital Signs 07/05/22 07/06/22 16:00 08:21 Temp 36.4 Pulse 75 Resp 18 B/P (MAP) 137/61 (86) Pulse Ox 97 O2 Delivery Room Air O2 Flow Rate 5.00 I&O Intake and Output 07/06/22 00:00 Intake Total 2650 ml Output Total 1690 ml Balance 960 ml Intake Oral 1650 ml IV Total 1000 ml Output Urine Total 1690 ml # Bowel Movements 1 General: Alert, Oriented X3, Mild Distress HEENT: Atraumatic Neck: Supple Lungs: Clear to Auscultation, Normal Air Movement Heart: Regular Rate, Normal S1, Normal S2, No Murmurs Abdomen: Normal Bowel Sounds, Soft, No Tenderness, No Hepatosplenomegaly, No Masses Extremities: No Edema Skin: No Rashes Neuro: Normal Speech, Sensation Intact, Other (tremulous to the head and bilateral hands, worse with handgrip. CN II-XII grossly intact and symmetrical. Sensation and strength intact and symmetrical, 5/5 bilaterally to upper and lower extremities.) Psych/Mental Status: Mental Status NL, Mood NL Results Lab Laboratory Tests 07/06/22 05:20 A/P-Cardiology Admission Diagnosis Atrial fibrillation Tachycardia Sepsis Acute renal failure Assessment/Plan Paroxysmal atrial fibrillation with rapid ventricular response Status post TRES with electrical cardioversion Currently in sinus rhythm and maintaining sinus rhythm. Continue oral Cardizem, monitor liver enzymes closely. Mild elevation in LFTs. Continue to monitor closely Dysphagia, having some difficulty with swallowing solid food. Managed by primary care physician Fever, chills, increased CRP Improved, managed by medical team. Troponin 0.4, mildly elevated, probably type II myocardial infarction secondary to tachycardia. Underlying coronary artery disease cannot be entirely excluded Planning to evaluate stress test as an outpatient Acute on chronic renal failure, history of chronic renal insufficiency Renal function are better at this point, back to baseline Continue to monitor Generalized weakness and fatigue. Probably secondary to above. Okay for discharge and follow-up as an outpatient DUGLAS BURNHAM MD Jul 06, 2022 08:25
[2022-07-06] MEDS: TAMSULOSIN 0.4 MG (FLOMAX) CAP PO SCH ×2 (08:51→20:29)
[2022-07-06] MEDS: ASPIRIN E.C. 81 MG (ECOTRIN) TAB PO SCH (08:51)
[2022-07-06] MEDS: PANTOPRAZOLE 40 MG (PROTONIX) TAB PO SCH (08:51)
[2022-07-06] MEDS: AMIODARONE 200 MG (CORDARONE) TAB PO SCH ×2 (08:52→20:29)
[2022-07-06] MEDS: MICONAZOLE 2% POWDER (DESENEX AF) 90 GM TOP SCH ×2 (08:53→20:29)
[2022-07-06 11:14] VITALS: BP 132/65
--- NOTE | 2022-07-06 11:27 | Physical Therapy Progress Note ---
Therapy Progress Note Patient refused PT. Patient informed of the importance of PT and functional activity, and still refused. Will try again in the AM. JUDE MILLER PT Jul 06, 2022 11:27
--- NOTE | 2022-07-06 11:28 | Occ Therapy Progress Note ---
Therapy Progress Note OT tx attempted, pt adamantly declined OT services at this time due to requesting to rest. Pt educated on purpose/benefit of OT but he continued to decline tx. OT will attempt tx at next available time. 1, refusal TIAGO JAY OT Jul 06, 2022 11:27
--- NOTE | 2022-07-06 12:22 | Discharge Summary ---
Discharge Summary Hospital Course Problems Reviewed?: Yes Problems/Diagnosis: (1) Atrial fibrillation with RVR Status: Acute Assessment & Plan: Resolved following electrical cardioversion at this time. Consulted with cardiology, patient taking PO amiodarone, being managed by cardiology. (2) Acute kidney injury Status: Acute Assessment & Plan: BUN and creatinine improving from previous values with hydration. Patient recommended to continue pushing fluids. (3) HTN (hypertension) Status: Chronic Assessment & Plan: BPs have stabilized within normal levels on home medications. Qualifiers: Qualified Codes: I10 - Essential (primary) hypertension (4) Diabetes mellitus, type 2 Status: Chronic Assessment & Plan: Hold home glipizide with ROMANA. Sliding scale insulin, diabetic diet. Qualifiers: Qualified Codes: E11.69 - Type 2 diabetes mellitus with other specified complication (5) Urinary retention Status: Acute Assessment & Plan: Home tamsulosin restarted. Scott catheter in place. (6) Mood disorder Status: Chronic Assessment & Plan: Uncertain diagnosis, home med list has olanzepine, but also does include donepezil raising question of dementia. Donepezil held due to interaction with amiodarone. (7) DVT prophylaxis Status: Resolved Resolution Date/Time: 07/06/22 @ 14:36 Assessment & Plan: On treatment dose rivaroxaban for a fib (8) Homelessness Status: Chronic Assessment & Plan: professional services specialist consulted, was released from residential not long ago, working with [facility] on getting medications, but was sent to hospital prior. [facility] to [facility] facility. (9) Tremor of face and hands Status: Chronic Assessment & Plan: Continue to monitor for possible worsening of the tremor. Primary differential at this time is essential tremor, consider Parkinson's Disease, physiologic tremor. Hospital Course Date of Admission: Jul 03, 2022 at 14:39 Admission Diagnosis : Family Physician/Provider: Carlos Verduzco Physician Date of Discharge: 07/06/22 Discharge Diagnosis: Atrial fibrillation with rapid ventricular response. Hospital Course: Inderjit Mast is a 72 yo male who was admitted to the ICU from the ED on 07/03 for atrial fibrillation with RVR on ECG. Cardiology was consulted and recommended TRES and electrical cardioversion, both of which were performed on 07/04 successfully and without complication. The patient was started on Lovenox, amiodarone, and diltiazem IV in the ICU, switched to only amiodarone PO when he was moved to inpatient care, as managed by Dr. Ramirez of cardiology. The patient's afib with RVR had complete resolution following cardioversion, with no recurrence during his stay in the hospital. The patient noted one episode of dull chest pain on 07/05, described as alternating from the right lateral chest wall to the left and back, shifting approximately every 30 seconds. This pain resolved with food and did not recur afterwards. VS during this episode were stable. ECG was obtained during this episode that revealed normal sinus rhythm. The patient was noted to have ROMANA on chemistry panel upon admission, with elevated BUN and Creatinine. These both have improved daily with initial IV fluid, followed by oral hydration. The patient was also observed to have a tremor to his bilateral hands and head. He states this tremor has only been present around 1 week, and he has never had a tremor before. The tremor worsens with action and is minimal at rest, it did not change through the patient's course. Patient's vital signs at time of discharge are stable. He denies any shortness of breath, abdominal pain, chest pain, nausea, vomiting, cough, or chills. Patient requested discharge to a shelter. Labs and Pending Lab Test: Laboratory Tests 07/05/22 16:06: Glucometer 155H 07/05/22 20:30: Glucometer 135H 07/06/22 05:20: White Blood Count 6.4, Red Blood Count 3.29L, Hemoglobin 9.7L, Hematocrit 30L, Mean Corpuscular Volume 92, Mean Corpuscular Hemoglobin 30, Mean Corpuscular Hemoglobin Concent 32, Red Cell Distribution Width 13.7, Platelet Count 260, Mean Platelet Volume 10.1, Immature Granulocyte % (Auto) 2, Neutrophils (%) (Auto) 61, Lymphocytes (%) (Auto) 20, Monocytes (%) (Auto) 12, Eosinophils (%) (Auto) 5, Basophils (%) (Auto) 1, Neutrophils # (Auto) 3.9, Lymphocytes # (Auto) 1.3, Monocytes # (Auto) 0.8, Eosinophils # (Auto) 0.3, Basophils # (Auto) 0.1, Immature Granulocyte # (Auto) 0.1, Sodium Level 142, Potassium Level 4.1, Chloride Level 115H, Carbon Dioxide Level 19L, Anion Gap 8, Blood Urea Nitrogen 27H, Creatinine 1.38H, Estimat Glomerular Filtration Rate 54, BUN/Creatinine Ratio 20, Glucose Level 124H, Calcium Level 8.3L, Corrected Calcium 9.2, Magnesium Level 1.8, Total Bilirubin 0.3, Aspartate Amino Transf (AST/SGOT) 35H, Alanine Aminotransferase (ALT/SGPT) 30, Alkaline Phosphatase 155H, Total Protein 5.2L, Albumin 2.9L, Hepatitis A IgM Antibody [Pending], Hepatitis B Surface Antigen [Pending], Hepatitis B Core IgM Antibody [Pending], Hepatitis C Antibody [Pending] 07/06/22 11:14: Glucometer 115H Microbiology 07/03/22 MRSA Screen - Final, Complete MRSA not isolated 07/03/22 Blood Culture - Preliminary, Resulted No growth Home Meds Active Reported Tylenol Extra Strength (Acetaminophen) 500 Mg Tablet 1,000 Mg PO BID PRN Aspirin EC (Aspirin) 81 Mg Tablet.dr 81 Mg PO DAILY Ibuprofen 600 Mg Tablet 600 Mg PO BID PRN Multivitamin 1 Each Tablet 1 Each PO DAILY Famotidine 20 Mg Tablet 20 Mg PO 1700 Donepezil HCl 5 Mg Tablet 5 Mg PO 1700 Allopurinol 100 Mg Tablet 100 Mg PO 1700 Olanzapine 10 Mg Tablet 10 Mg PO HS Hydrochlorothiazide 12.5 Mg Tablet 12.5 Mg PO DAILY Atorvastatin Calcium 20 Mg Tablet 20 Mg PO DAILY Glipizide Xl (Glipizide) 5 Mg Tab.er.24 5 Mg PO DAILY Lisinopril 10 Mg Tablet 10 Mg PO DAILY Pantoprazole Sodium 40 Mg Tablet.dr 40 Mg PO DAILY Flomax (Tamsulosin HCl) 0.4 Mg Cap 0.4 Mg PO BID Discharge Physical Examination Allergies: Coded Allergies: Penicillins (Verified Allergy, Mild, Rash, 07/03/22) General Appearance: No Apparent Distress Respiratory: Chest Non Tender, Lungs Clear, Normal Breath Sounds, No Accessory Muscle Use, No Respiratory Distress Cardiovascular: Regular Rate, Rhythm, No Edema, No Gallop, No Murmur, Normal Peripheral Pulses Gastrointestinal: Normal Bowel Sounds, No Pulsatile Mass, Non Tender, Soft Extremity: Normal Inspection, No Pedal Edema Neurologic/Psychiatric: Alert, No Motor/Sensory Deficits, Normal Mood/Affect, Other (bilateral hand and head tremor noted, worse with action.) Discharge Summary Date of Admission Jul 03, 2022 at 14:39 Date of Discharge Discharge Date: Jul 06, 2022 Discharge Time: 12:30 Admission Diagnosis Afib with RVR Consults/Procedures Consulations Cardiology, Dr. Ramirez Procedures Electrical cardioversion Discharge Diagnosis Afib with RVR (1) Urinary retention Status: Acute Assessment & Plan: Restart patient on tamsulosin. (2) Mood disorder Status: Chronic Assessment & Plan: Continue home medications, follow up with primary care. (3) Diabetes mellitus, type 2 Status: Chronic Assessment & Plan: Continue home medications and follow up with primary care. Qualifiers: Qualified Codes: E11.69 - Type 2 diabetes mellitus with other specified complication (4) DVT prophylaxis Status: Resolved Assessment & Plan: Managed with Lovenox inpatient. (5) Tremor of face and hands Status: Chronic Assessment & Plan: Continue observation for the patient's tremor, primarily concerned for essential tremor. Consider Parkinson's or physiologic tremor. (6) GERD (gastroesophageal reflux disease) Status: Chronic Assessment & Plan: Continue pantoprazole and follow up with primary care. (7) HTN (hypertension) Status: Chronic Assessment & Plan: Continue home medications and follow with primary care. Qualifiers: Qualified Codes: I10 - Essential (primary) hypertension (8) Obesity (BMI 30.0-34.9) Status: Chronic Assessment & Plan: Follow with primary care. (9) Acute kidney injury Status: Acute Assessment & Plan: BUN and Creatinine trending down here with sufficient hydration, continue pushing fluids. (10) Atrial fibrillation with RVR Status: Acute Assessment & Plan: Resolved with electrical cardioversion here and initial drips of amiodarone and diltiazem. Still controlled with amiodarone PO, follow up with cardiology. (11) Homelessness Status: Chronic Assessment & Plan: [facility]charged to [facility] for [facility] care. ABELARDO GAONA Jul 06, 2022 12:17
[2022-07-06 15:28] VITALS: BP 142/81
[2022-07-06] MEDS: ALLOPURINOL 100 MG (ZYLOPRIM) TAB PO SCH (17:17)
[2022-07-06] MEDS: RIVAROXABAN 20 MG TABLET (XARELTO) PO SCH (17:17)
[2022-07-06] MEDS: FAMOTIDINE 20 MG (PEPCID) TABLET PO SCH (17:17)
[2022-07-06 19:08] VITALS: BP 133/78
[2022-07-06] MEDS: OLANZapine 5 MG ODT (ZyPREXA ZYDIS) PO SCH (20:29)
[2022-07-06 21:56] LABS: HEPATITIS C ANTIBODY C Non-Reactive (Non-Reactive)
[2022-07-06 23:08] VITALS: BP 144/77
[2022-07-07 04:47] VITALS: BP 120/65
[2022-07-07 05:20] LABS: BASOPHILS # (AUTO) 0.1 10^3/uL (0.0-0.1); BASOPHILS % (AUTO) 1 % (0-10); EOSINOPHILS # (AUTO) 0.4 10^3/uL (0.0-0.3); EOSINOPHILS % (AUTO) 6 % (0-10); HEMATOCRIT 32 % (40-54); HEMOGLOBIN 10.2 g/dL (13.3-17.7); LYMPHOCYTES # (AUTO) 1.4 10^3/uL (1.0-4.0); LYMPHOCYTES % (AUTO) 21 % (12-44); MEAN CORPUSCULAR HEMOGLOBIN 29 pg (25-34); MEAN CORPUSCULAR HGB CONC 32 g/dL (32-36); MEAN CORPUSCULAR VOLUME 91 fL (80-99); MEAN PLATELET VOLUME 10.1 fL (9.0-12.2); MONOCYTES # (AUTO) 0.6 10^3/uL (0.0-1.0); MONOCYTES % (AUTO) 9 % (0-12); NEUTROPHILS % (AUTO) 61 % (42-75); PLATELET COUNT 267 10^3/uL (130-400); WHITE BLOOD COUNT 6.6 10^3/uL (4.3-11.0)
[2022-07-07 05:51] LABS: ALBUMIN 2.9 GM/DL (3.2-4.5); BILIRUBIN,TOTAL 0.2 MG/DL (0.1-1.0); CALCIUM 8.4 MG/DL (8.5-10.1); CREATININE SERUM 1.31 MG/DL (0.60-1.30); MAGNESIUM 1.7 MG/DL (1.6-2.4); POTASSIUM 4.2 MMOL/L (3.6-5.0); TOTAL PROTEIN 5.4 GM/DL (6.4-8.2)
[2022-07-07] MEDS: MULTIVIT W/MINERALS TAB (THERAGRAN M) PO SCH (06:54)
[2022-07-07 07:39] VITALS: BP 139/66
[2022-07-07] MEDS: MICONAZOLE 2% POWDER (DESENEX AF) 90 GM TOP SCH ×2 (08:46→20:18)
[2022-07-07] MEDS: PANTOPRAZOLE 40 MG (PROTONIX) TAB PO SCH (08:47)
[2022-07-07] MEDS: TAMSULOSIN 0.4 MG (FLOMAX) CAP PO SCH ×2 (08:47→20:16)
[2022-07-07] MEDS: ASPIRIN E.C. 81 MG (ECOTRIN) TAB PO SCH (08:47)
[2022-07-07] MEDS: AMIODARONE 200 MG (CORDARONE) TAB PO SCH ×2 (08:47→20:16)
[2022-07-07] MEDS ORDERED: meTOproloL SUCCINATE 50 MG (TOPROL XL) TAB PO NR (10:00)
--- NOTE | 2022-07-07 10:10 | Cardiology Progress Note ---
Progress Note-Cardiology Events since last exam Date Seen by Provider: Jul 07, 2022 Time Seen by Provider: 10:09 Events since last exam We are following him due to atrial fibrillation. He denies chest pain, dyspnea at rest, palpitations, or syncope. He has mild ankle edema. His main complaint is tremors of his hands. This is something new. He has not had this in the past. Certain portions of this document may have been dictated utilizing voice recognition technology. Inherent to this technology, typographical and grammatical errors may exist. As much as I am diligent to identify and correct these mistakes, some errors may remain in the document. Vitals Last set of Vitals Signs Vital Signs 07/05/22 07/07/22 16:00 15:39 Temp 37.5 Pulse 69 Resp 14 B/P (MAP) 132/73 (92) Pulse Ox 97 O2 Delivery Room Air O2 Flow Rate 5.00 Labs Labs Laboratory Tests 07/07/22 04:55 Exam Vital Signs Vital Signs Date Time Temp Pulse Resp B/P (MAP) Pulse Ox O2 Delivery O2 Flow Rate FiO2 07/07/22 15:39 37.5 69 14 132/73 (92) 97 Room Air 07/05/22 16:00 5.00 Physical Exam General: Alert. No acute distress. He is obese. He has somewhat disheveled. Eye: No xanthelasma. HENT: Normocephalic. Neck: Jugular venous pressure does not appear elevated. Respiratory: Lungs are clear to auscultation. Respirations are non-labored. B reath sounds are equal. Symmetrical chest wall expansion. Cardiovascular: Normal rate. Regular rhythm. No murmur. No gallop. 1+ bilateral pretibial edema. Gastrointestinal: Soft. Normal bowel sounds. Skin: Warm. Dry. Neurologic: Alert and oriented to person, place, time. Cranial nerves 3-11 grossly intact. Hands are somewhat tremulous. Psychiatric: Cooperative. Appropriate mood & affect. Labs Laboratory Tests Test 07/06/22 20:46 07/07/22 04:55 07/07/22 11:28 07/07/22 15:42 Range/Units Glucometer 129 H 154 H 165 H 70-110 MG/DL White Blood Count 6.6 4.3-11.0 10^3/uL Red Blood Count 3.49 L 4.30-5.52 10^6/uL Hemoglobin 10.2 L 13.3-17.7 g/dL Hematocrit 32 L 40-54 % Mean Corpuscular Volume 91 80-99 fL Mean Corpuscular Hemoglobin 29 25-34 pg Mean Corpuscular Hemoglobin Concent 32 32-36 g/dL Red Cell Distribution Width 13.6 10.0-14.5 % Platelet Count 267 130-400 10^3/uL Mean Platelet Volume 10.1 9.0-12.2 fL Immature Granulocyte % (Auto) 2 % Neutrophils (%) (Auto) 61 42-75 % Lymphocytes (%) (Auto) 21 12-44 % Monocytes (%) (Auto) 9 0-12 % Eosinophils (%) (Auto) 6 0-10 % Basophils (%) (Auto) 1 0-10 % Neutrophils # (Auto) 4.0 1.8-7.8 10^3/uL Lymphocytes # (Auto) 1.4 1.0-4.0 10^3/uL Monocytes # (Auto) 0.6 0.0-1.0 10^3/uL Eosinophils # (Auto) 0.4 H 0.0-0.3 10^3/uL Basophils # (Auto) 0.1 0.0-0.1 10^3/uL Immature Granulocyte # (Auto) 0.2 H 0.0-0.1 10^3/uL Sodium Level 142 135-145 MMOL/L Potassium Level 4.2 3.6-5.0 MMOL/L Chloride Level 112 H 98-107 MMOL/L Carbon Dioxide Level 21 21-32 MMOL/L Anion Gap 9 5-14 MMOL/L Blood Urea Nitrogen 22 H 7-18 MG/DL Creatinine 1.31 H 0.60-1.30 MG/DL Estimat Glomerular Filtration Rate 57 BUN/Creatinine Ratio 17 Glucose Level 126 H 70-105 MG/DL Calcium Level 8.4 L 8.5-10.1 MG/DL Corrected Calcium 9.3 8.5-10.1 MG/DL Magnesium Level 1.7 1.6-2.4 MG/DL Total Bilirubin 0.2 0.1-1.0 MG/DL Aspartate Amino Transf (AST/SGOT) 26 5-34 U/L Alanine Aminotransferase (ALT/SGPT) 30 0-55 U/L Alkaline Phosphatase 147 H 40-136 U/L Total Protein 5.4 L 6.4-8.2 GM/DL Albumin 2.9 L 3.2-4.5 GM/DL Diagnosis/Problems Diagnosis/Problems (1) Paroxysmal atrial fibrillation Assessment & Plan: He remains in sinus rhythm on amiodarone. He is on Xarelto for stroke prophylaxis. The amiodarone will need to be tapered following discharge. I have ordered for the staff to get him a follow-up visit with Dr. Ramirez in the near future. (2) Primary hypertension Assessment & Plan: Blood pressure has been reasonably controlled with metoprolol. (3) Mixed hyperlipidemia Assessment & Plan: Continue statin medication. (4) Mitral regurgitation Assessment & Plan: His transesophageal echocardiogram showed mild mitral regurgitation. This should not be causing symptoms but we may want to follow this in the long-term. (5) Acute kidney injury superimposed on chronic kidney disease Assessment & Plan: His renal function has improved since admission. (6) Tremor of face and hands Status: Chronic Assessment & Plan: Etiology unclear. He denies alcohol or other drug abuse. I am placing him on beta-anastasia for the atrial fibrillation and hypertension. Sometimes this will help with tremor if it is due to essential tremor. GUICHO SOMMERS JR, MD Jul 07, 2022 10:10
--- NOTE | 2022-07-07 10:49 | Physical Therapy Daily Note ---
PT Daily Note-Current Subjective Patient agrees to PT. Pain Section J - Health Conditions 1. Rarely or not at all 2. Occasionally 3. Frequently 4. Almost constantly 8. Unable to answer Pain Effect on Sleep: 1 Pain Interference with Therapy: 1 Pain Interference w/Day-to-Day: 1 Mental Status Patient Orientation: Normal For Age Transfers SCALE: Activities may be completed with or without assistive devices. 4-Xhbovsbljo-yyjrrmw completes the activity by him/herself with no assistance from a helper. 5-Set-up or Clean-up Assistance-helper sets up or cleans up; patient completes activity. [place]etchum assists only prior to or following the activity. 4-Supervision or Touching Assistance-helper provides verbal cues and/or touching/steadying and/or contact guard assistance as patient completes activity. Assistance may be provided throughout the activity or intermittently. 3-Partial/Moderate Assistance-helper does LESS THAN HALF the effort. Ketchum lifts, holds or supports trunk or limbs, but provides less than half the effort. 2-Substantial/Maximal Assistance-helper does MORE THAN HALF the effort. Ketchum lifts or holds trunk or limbs and provides more than half the effort. 1-Ictihmego-rapreh does ALL the effort. Patient does none of the effort to complete the activity. Or, the assistance of 2 or more helpers is required for the patient to complete the activity. If activity was not attempted, code reason: 7-Patient Refused. 9-Not Applicable-not attempted and the patient did not perform the activity before the current illness, exacerbation or injury. 10-Not Attempted due to Environmental Limitations-(lack of equipment, weather restraints, etc.). 88-Not Attempted due to Medical Conditions or Safety Concerns. Lying to Sitting/Side of Bed(Q: 6 Sit to Stand (QC): 6 Chair/Mko-ps-Fcgdr Xfer(QC): 6 Weight Bearing Right Lower Extremity: Right Full Weight Bearing Left Lower Extremity: Left Full Weight Bearing Gait Training Distance: 500' Walk 10 feet (QC): 6 Walk 50 ft with 2 Turns(QC): 6 Walk 150 ft (QC): 6 Gait Assistive Device: FWW safe and functional with no deviation Assessment Patient is currently at independent PLOF with all gross motor skills and does not require continued skilled PT intervention. PT Director Agricultural Services Goals Director Agricultural Services Goals PT Director Agricultural Services Goals Time Frame: Jul 15, 2022 Roll Left & Right (QC): 6 Sit to Lying (QC): 6 Lying-Sitting on Side/Bed(QC): 6 Sit to Stand (QC): 6 Chair/Vcl-sq-Gtoeh Xfer(QC): 6 Toilet Transfer (QC): 6 Does the Patient Walk: Yes Walk 10 feet (QC): 6 Walk 50ft with 2 Turns (QC): 6 Walk 150 ft (QC): 6 PT Plan Treatment/Plan Treatment Plan: Discontinue PT, goals met Treatment Plan: Bed Mobility, Education, Functional Activity Beatrice, Functional Strength, Group Therapy, Gait, Safety, Therapeutic Exercise, Transfers Treatment Duration: Jul 26, 2022 Frequency: 6 times per week Estimated Hrs Per Day: .25 hour per day Patient and/or Family Agrees t: Yes Time Time In: 935 Time Out: 945 DATE: Jul 07, 2022 Total Billed Treatment Time: 10 Total Billed Treatment 1 visit FA 10 min JUDE MILLER PT Jul 07, 2022 10:49
--- NOTE | 2022-07-07 11:16 | Progress Note ---
ABELARDO GAONA 07/07/22 1116: Subjective Subjective/Events-last exam The patient reports he is doing well today. He has had no recurring episodes of his chest pain from 2 days ago, and he has had no palpitations, shortness of breath, chills, cough, headache, or abdominal pain otherwise. The patient states his bilateral leg weakness appears to be improving, and he is able to ambulate to the bathroom without assistance. He notes he had his Scott catheter removed around 1900 yesterday and has been urinating under his own control without issue; he denies any difficulty urinating, urinary incontinence, increased or decreased urinary frequency, or any dysuria. He remarks his tremor is still present to his bilateral hands and head, without change. No head, neck, or arm weakness. Review of Systems General: No Chills HEENT: No Head Aches Pulmonary: No Dyspnea, No Cough Cardiovascular: No: Chest Pain, Palpitations Gastrointestinal: No: Abdominal Pain Genitourinary: No Dysuria, No Frequency, No Incontinence, No Retention Neurological: Other (tremor to bilateral hands and head, unchanged from previous.); No: Weakness Objective Exam Last Set of Vital Signs Vital Signs Date Time Temp Pulse Resp B/P (MAP) Pulse Ox O2 Delivery O2 Flow Rate FiO2 07/07/22 07:39 36.6 66 18 139/66 (90) 98 Room Air 07/05/22 16:00 5.00 Capillary Refill : Less Than 3 Seconds I&O Intake and Output 07/07/22 00:00 Intake Total 3310 ml Output Total 1425 ml Balance 1885 ml Intake Oral 3010 ml IV Total 300 ml Output Urine Total 1425 ml # Voids 2 # Bowel Movements 2 General: Alert, Cooperative, No Acute Distress HEENT: Atraumatic Lungs: Clear to Auscultation, Normal Air Movement Heart: Regular Rate, Normal S1, Normal S2, No Murmurs Abdomen: Normal Bowel Sounds, Soft, No Tenderness Extremities: No Clubbing, No Cyanosis, No Edema, Normal Pulses Skin: No Rashes Neuro: Strength at 5/5 X4 Ext, Other (action tremors present to his head and bilateral upper extremities.) Results/Procedures Lab Laboratory Tests 07/06/22 11:14: Glucometer 115H 07/06/22 15:31: Glucometer 157H 07/06/22 20:46: Glucometer 129H 07/07/22 04:55: White Blood Count 6.6, Red Blood Count 3.49L, Hemoglobin 10.2L, Hematocrit 32L, Mean Corpuscular Volume 91, Mean Corpuscular Hemoglobin 29, Mean Corpuscular Hemoglobin Concent 32, Red Cell Distribution Width 13.6, Platelet Count 267, Mean Platelet Volume 10.1, Immature Granulocyte % (Auto) 2, Neutrophils (%) (Auto) 61, Lymphocytes (%) (Auto) 21, Monocytes (%) (Auto) 9, Eosinophils (%) (Auto) 6, Basophils (%) (Auto) 1, Neutrophils # (Auto) 4.0, Lymphocytes # (Auto) 1.4, Monocytes # (Auto) 0.6, Eosinophils # (Auto) 0.4H, Basophils # (Auto) 0.1, Immature Granulocyte # (Auto) 0.2H, Sodium Level 142, Potassium Level 4.2, Chloride Level 112H, Carbon Dioxide Level 21, Anion Gap 9, Blood Urea Nitrogen 22H, Creatinine 1.31H, Estimat Glomerular Filtration Rate 57, BUN/Creatinine Ratio 17, Glucose Level 126H, Calcium Level 8.4L, Corrected Calcium 9.3, Magnesium Level 1.7, Total Bilirubin 0.2, Aspartate Amino Transf (AST/SGOT) 26, Alanine Aminotransferase (ALT/SGPT) 30, Alkaline Phosphatase 147H, Total Protein 5.4L, Albumin 2.9L Microbiology 07/03/22 MRSA Screen - Final, Complete MRSA not isolated 07/03/22 Blood Culture - Preliminary, Resulted No growth Radiology CHEST 1 VIEW, AP/PA ONLY IMPRESSION: Cardiomegaly and mild central vascular prominence. No focal consolidation or pleural fluid. Procedures EKG 07/03/22 13:25: Afib with RVR, heart rate of 171. EKG 07/04/22 06:48: Afib with RVR, heart rate approximately 96 EKG 07/04/22 08:12: Sinus rhythm, heart rate 68 Assessment/Plan Assessment/Plan (1) Atrial fibrillation with RVR Status: Acute Assessment & Plan: Resolved following electrical cardioversion at this time. Consulted with cardiology, patient taking PO amiodarone, being managed by cardiology. (2) Acute kidney injury Status: Acute Assessment & Plan: BUN and creatinine improving from previous values with hydration. Patient recommended to continue pushing fluids. 07/07 BUN and creatinine continue improving with good hydration here. (3) HTN (hypertension) Status: Chronic Assessment & Plan: BPs have stabilized within normal levels on home medications. Qualifiers: Qualified Codes: I10 - Essential (primary) hypertension (4) Diabetes mellitus, type 2 Status: Chronic Assessment & Plan: Hold home glipizide with ROMANA. Sliding scale insulin, diabetic diet. Qualifiers: Qualified Codes: E11.69 - Type 2 diabetes mellitus with other specified complication (5) Urinary retention Status: Acute Assessment & Plan: Home tamsulosin restarted. Scott catheter in place. 07/07 Scott catheter removed on 07/06 evening, and patient has full control of his urination at this time without concern. (6) Mood disorder Status: Chronic Assessment & Plan: Uncertain diagnosis, home med list has olanzepine, but also does include donepezil raising question of dementia. Donepezil held due to in teraction with amiodarone. (7) DVT prophylaxis Status: Resolved Assessment & Plan: On treatment dose rivaroxaban for a fib (8) Homelessness Status: Chronic Assessment & Plan: coordinator of genetic services consulted, was released from senior care not long ago, working with [facility] on getting medications, but was sent to hospital prior. Social work here is looking for appropriate halfway facility to place the patient in. (9) Tremor of face and hands Status: Chronic Assessment & Plan: Continue to monitor for possible worsening of the tremor. Primary differential at this time is essential tremor, consider Parkinson's Disease, physiologic tremor. Clinical Quality Measures Admission Status Admission Dx Afib with RVR YAZ ATWOOD MD 07/07/22 1620: Supervisory-Addendum Brief Verification & Attestation Participated in pt care: history, MDM, physical Personally performed: exam, history, MDM, supervision of care Care discussed with: Medical Student Procedures: n/a Verification and Attestation of Medical Student E/M Service A medical student performed and documented this service in my presence. I reviewed and verified all information documented by the medical student and made modifications to such information, when appropriate. I personally performed the physical exam and medical decision making. Yza Atwood, Jul 07, 2022,16:20 ABELARDO GAONA Jul 07, 2022 11:16 YAZ ATWOOD MD Jul 07, 2022 16:20
[2022-07-07 11:29] VITALS: BP 156/70
--- NOTE | 2022-07-07 12:28 | Occupational Ther Daily Note ---
OT Current Status-Daily Note Subjective Pt alert, lying in bed. Pt declines to complete any OOB tasks with OT. Pt required max encouragement to minimally participate in skilled therapy. No c/o pain. Mental Status/Objective Patient Orientation: Person, Place, Time, Situation Attachments: IV ADL-Treatment Pt independent with eating. B UE ROM and strength WNL. Pt declines to participate in any other ADLs or exercises. After session, pt lying in bed with call light/phone in reach. All needs met in room. Therapy Code Descriptions/Definitions Functional [place]mann Measure: 0=Not Assessed/NA 4=Minimal Assistance 1=Total Assistance 5=Supervision or Setup 2=Maximal Assistance 6=Modified [place] 3=Moderate Assistance 7=Complete IndependenceSCALE: Activities may be completed with or without assistive devices. 3-Mlcezxofrl-vjxfces completes the activity by him/herself with no assistance from a helper. 5-Set-up or Clean-up Assistance-helper sets up or cleans up; patient completes activity. Moro assists only prior to or following the activity. 4-Supervision or Touching Assistance-helper provides verbal cues and/or touching/steadying and/or contact guard assistance as patient completes activity. Assistance may be provided throughout the activity or intermittently. 3-Partial/Moderate Assistance-helper does LESS THAN HALF the effort. Moro lifts, holds or supports trunk or limbs, but provides less than half the effort. 2-Substantial/Maximal Assistance-helper does MORE THAN HALF the effort. Moro lifts or holds trunk or limbs and provides more than half the effort. 4-Biflvknqg-nwveve does ALL the effort. Patient does none of the effort to complete the activity. Or, the assistance of 2 or more helpers is required for the patient to complete the activity. If activity was not attempted, code reason: 7-Patient Refused. 9-Not Applicable-not attempted and the patient did not perform the activity before the current illness, exacerbation or injury. 10-Not Attempted due to Environmental Limitations-(lack of equipment, weather restraints, etc.). 88-Not Attempted due to Medical Conditions or Safety Concerns. Eating (QC): 6 OT Explosive Ordnance Manager Goals Explosive Ordnance Manager Goals Time Frame: Jul 14, 2022 Eating (QC): 6 Oral Hygiene (QC): 6 Toileting Hygiene (QC): 6 Shower/Bathe Self (QC): 6 Upper Body Dressing (QC): 6 Lower Body Dressing (QC): 6 On/Off Footwear (QC): 6 Additional Goals: 1-Demonstrate ADL Tasks, 2-Verbalize Understanding, 3-ImproveStrength/Beatrice 1=Demonstrate adherence to instructed precautions during ADL tasks. 2=Patient will verbalize/demonstrate understanding of assistive devices/modifications for ADL. 3=Patient will improve strength/tolerance for activity to enable patient to perform ADL's. OT Education/Plan Problem List/Assessment Assessment: Impaired Self-Care Skills Pt would benefit from short term skilled OT services in order to increase safety and independence with ADLS and functional mobility/transfers, and to improve BUE activity tolerance in order to maximize LOF for return home. Discharge Recommendations Plan/Recommendations: Continue POC Treatment Plan/Plan of Care Patient would benefit from OT for education, treatment and training to promote independence in ADL's, mobility, safety and/or upper extremity function for ADL's. Plan of Care: ADL Retraining, Functional Mobility, UE Funct Exercise/Act Treatment Duration: Jul 14, 2022 Frequency: 3 times per week (3-5 times per week) Estimated Hrs Per Day: .25 hour per day Agreement: Yes Rehab Potential: Fair Time Start Time: 11:21 Stop Time: 11:29 DATE: Jul 07, 2022 Total Time Billed (hr/min): 8 Billed Treatment Time 1 visit-ADL 1 (8 min) MELISSA SANCHEZ Jul 07, 2022 12:28
[2022-07-07 15:39] VITALS: BP 132/73
[2022-07-07] MEDS: ALLOPURINOL 100 MG (ZYLOPRIM) TAB PO SCH (16:54)
[2022-07-07] MEDS: FAMOTIDINE 20 MG (PEPCID) TABLET PO SCH (16:55)
[2022-07-07] MEDS: RIVAROXABAN 20 MG TABLET (XARELTO) PO SCH (16:55)
--- NOTE | 2022-07-07 18:30 | Physician Query Clarification ---
Physician Query-General Query to Physician: Clinical Validation Clarification Dr Reji Atwood Sepsis and Pneumonia has been documented in the medical record. After study, has Sepsis and Pneumonia been ruled out? If it has been ruled out, please document Sepsis and Pneumonia, ruled out" in the progress notes and/or discharge summary. 1. Yes/Agreed, Sepsis and Pneumonia ruled out/is not clinically valid 2. Not agreed, Sepsis and Pneumonia has not been ruled out/is clinically valid* *Please document the clinical evidence supportive of this diagnosis (even if now resolved) in the Progress Notes and Discharge Summary 3. Other, with explanation of the clinical findings 4. Clinically undetermined, no explanation for the clinical findings Additional information: Hx of: Urinary retention, mood disorder, homelessness Admission Labs/VS HR 168, RR 20, BP 106/58, SpO2 96% sat on room air T 37.8, WBC 16.5, Cr 2.65, BC X NGTD, Lactic acid 6.09 decreased to 1.56, chest x-ray cardiomegaly and mild central vascular prominence or pleural fluid. ER: normal saline 1 L, ceftriaxone IV was given on 07/03/2022- then DC'd Per consult: "PNA , suspected in ER ( NEG covid and flu ) - abx x1 given no symptoms now - OFF ABX " In responding to this query, please exercise your independent professional judgment. The purpose of this communication is to more accurately reflect the complexity of your patients condition. The fact that a question is asked does not imply that any particular answer is desired or expected. Thank you for your timely response to this clarification. Janel Lira MSN, RN Clinical Stress Test Technician [email or web address] PHYSICIAN RESPONSE: Based on the clinical findings in the record, please respond to the query above on this document as an addendum. Physician Response: Physician Response 1 If you have questions please contact: Reproduction Artist: Ext: Thank you for your time and cooperation. Clinical Stress Test Technician/Reproduction Artist This is a permanent part of the medical record JANEL LIRA Jul 07, 2022 18:30 COOPER ATWOOD MD Jul 08, 2022 08:55
[2022-07-07 19:32] VITALS: BP 129/72
[2022-07-07] MEDS: OLANZapine 5 MG ODT (ZyPREXA ZYDIS) PO SCH (20:16)
[2022-07-07 23:17] VITALS: BP 154/81
[2022-07-08 04:00] VITALS: BP 137/74
[2022-07-08] MEDS: MULTIVIT W/MINERALS TAB (THERAGRAN M) PO SCH (06:01)
[2022-07-08 06:12] LABS: BASOPHILS # (AUTO) 0.1 10^3/uL (0.0-0.1); BASOPHILS % (AUTO) 1 % (0-10); EOSINOPHILS # (AUTO) 0.5 10^3/uL (0.0-0.3); EOSINOPHILS % (AUTO) 6 % (0-10); HEMATOCRIT 32 % (40-54); HEMOGLOBIN 10.3 g/dL (13.3-17.7); LYMPHOCYTES # (AUTO) 1.5 10^3/uL (1.0-4.0); LYMPHOCYTES % (AUTO) 19 % (12-44); MEAN CORPUSCULAR HEMOGLOBIN 29 pg (25-34); MEAN CORPUSCULAR HGB CONC 33 g/dL (32-36); MEAN CORPUSCULAR VOLUME 90 fL (80-99); MEAN PLATELET VOLUME 9.8 fL (9.0-12.2); MONOCYTES # (AUTO) 0.7 10^3/uL (0.0-1.0); MONOCYTES % (AUTO) 9 % (0-12); NEUTROPHILS # (AUTO) 4.7 10^3/uL (1.8-7.8); NEUTROPHILS % (AUTO) 62 % (42-75); PLATELET COUNT 293 10^3/uL (130-400); WHITE BLOOD COUNT 7.6 10^3/uL (4.3-11.0)
--- NOTE | 2022-07-08 06:14 | Progress Note - Hospitalist ---
Subjective HPI/CC On Admission Date Seen by Provider: Jul 08, 2022 Time Seen by Provider: 11:00 Subjective/Events-last exam Patient doing well today Eating well Pain is controlled Bowels are moving Review of Systems General: Fatigue, Malaise Objective Exam Vital Signs Vital Signs Date Time Temp Pulse Resp B/P (MAP) Pulse Ox O2 Delivery O2 Flow Rate FiO2 07/09/22 03:52 36.5 71 16 148/66 (93) 98 Room Air 07/08/22 08:05 0.00 Capillary Refill : Less Than 3 Seconds General Appearance: No Apparent Distress, WD/WN, Chronically ill Respiratory: Lungs Clear, Normal Breath Sounds Cardiovascular: Regular Rate, Rhythm Neurologic/Psychiatric: Alert, Oriented x3, No Motor/Sensory Deficits, Normal Mood/Affect Results/Procedures Lab Laboratory Tests 07/08/22 06:00 07/09/22 05:38 Patient resulted labs reviewed. Assessment/Plan Assessment and Plan Assess & Plan/Chief Complaint (1) Atrial fibrillation with RVR Status: Acute Assessment & Plan: Resolved following electrical cardioversion at this time. Consulted with cardiology, patient taking PO amiodarone, being managed by cardiology. (2) Acute kidney injury Status: Acute Assessment & Plan: BUN and creatinine improving from previous values with hydration. Patient recommended to continue pushing fluids. 07/07 BUN and creatinine continue improving with good hydration here. (3) HTN (hypertension) Status: Chronic Assessment & Plan: BPs have stabilized within normal levels on home medications. Qualifiers: Qualified Codes: I10 - Essential (primary) hypertension (4) Diabetes mellitus, type 2 Status: Chronic Assessment & Plan: Hold home glipizide with ROMANA. Sliding scale insulin, diabetic diet. Qualifiers: Qualified Codes: E11.69 - Type 2 diabetes mellitus with other specified complication (5) Urinary retention Status: Acute Assessment & Plan: Home tamsulosin restarted. Scott catheter in place. 07/07 Scott catheter removed on 07/06 evening, and patient has full control of his urination at this time without concern. (6) Mood disorder Status: Chronic Assessment & Plan: Uncertain diagnosis, home med list has olanzepine, but also does include donepezil raising question of dementia. Donepezil held due to interaction with amiodarone. (7) DVT prophylaxis Status: Resolved Assessment & Plan: On treatment dose rivaroxaban for a fib (8) Homelessness Status: Chronic Assessment & Plan: director of outpatient services consulted, was released from assisted not long ago, working with [facility] on getting medications, but was sent to hospital prior. Social work here is looking for appropriate jail facility to place the patient in. (9) Tremor of face and hands Status: Chronic Assessment & Plan: Continue to monitor for possible worsening of the tremor. Primary differential at this time is essential tremor, consider Parkinson's Disease, physiologic tremor. DUY SHAH DO Jul 08, 2022 06:14
[2022-07-08 06:45] LABS: BILIRUBIN,TOTAL 0.2 MG/DL (0.1-1.0); CALCIUM 8.5 MG/DL (8.5-10.1); CREATININE SERUM 1.33 MG/DL (0.60-1.30); MAGNESIUM 1.8 MG/DL (1.6-2.4); POTASSIUM 4.5 MMOL/L (3.6-5.0); TOTAL PROTEIN 5.9 GM/DL (6.4-8.2)
[2022-07-08 07:52] VITALS: BP 135/74
[2022-07-08] MEDS: AMIODARONE 200 MG (CORDARONE) TAB PO SCH ×2 (09:28→21:06)
[2022-07-08] MEDS: ASPIRIN E.C. 81 MG (ECOTRIN) TAB PO SCH (09:28)
[2022-07-08] MEDS: TAMSULOSIN 0.4 MG (FLOMAX) CAP PO SCH ×2 (09:28→21:06)
[2022-07-08] MEDS: MICONAZOLE 2% POWDER (DESENEX AF) 90 GM TOP SCH ×2 (09:28→21:05)
[2022-07-08] MEDS: PANTOPRAZOLE 40 MG (PROTONIX) TAB PO SCH (09:29)
[2022-07-08] MEDS: meTOproloL SUCCINATE 50 MG (TOPROL XL) TAB PO SCH (09:29)
--- NOTE | 2022-07-08 10:39 | Cardiology Progress Note ---
Progress Note-Cardiology Events since last exam Date Seen by Provider: Jul 08, 2022 Time Seen by Provider: 10:36 Events since last exam We are following him due to atrial fibrillation. He was up taking a shower on his own this morning without incident. He denies any significant dyspnea. He denies chest pain, palpitations, syncope, or ankle edema. His main complaint continues to be tremor of his hands. Certain portions of this document may have been dictated utilizing voice recognition technology. Inherent to this technology, typographical and grammatical errors may exist. As much as I am diligent to identify and correct these mistakes, some errors may remain in the document. Vitals Last set of Vitals Signs Vital Signs 07/08/22 07/08/22 07:52 08:05 Temp 36.6 Pulse 66 Resp 20 B/P (MAP) 135/74 (94) Pulse Ox 96 O2 Delivery Room Air O2 Flow Rate 0.00 Labs Labs Laboratory Tests 07/08/22 06:00 Exam Vital Signs Vital Signs Date Time Temp Pulse Resp B/P (MAP) Pulse Ox O2 Delivery O2 Flow Rate FiO2 07/08/22 08:05 Room Air 0.00 07/08/22 07:52 36.6 66 20 135/74 (94) 96 Physical Exam General: Alert. No acute distress. He is obese. Eye: No xanthelasma. HENT: Normocephalic. Neck: Jugular venous pressure does not appear elevated. Respiratory: Lungs are clear to auscultation. Respirations are non-labored. Breath sounds are equal. Symmetrical chest wall expansion. Cardiovascular: Normal rate. Regular rhythm. No murmur. No gallop. No edema. Gastrointestinal: Soft. Normal bowel sounds. Skin: Warm. Dry. Neurologic: Alert and oriented to person, place, time. Cranial nerves 3-11 grossly intact. Psychiatric: Cooperative. Appropriate mood & affect. Labs Laboratory Tests Test 07/07/22 11:28 07/07/22 15:42 07/07/22 20:37 07/08/22 06:00 Range/Units Glucometer 154 H 165 H 156 H 70-110 MG/DL White Blood Count 7.6 4.3-11.0 10^3/uL Red Blood Count 3.51 L 4.30-5.52 10^6/uL Hemoglobin 10.3 L 13.3-17.7 g/dL Hematocrit 32 L 40-54 % Mean Corpuscular Volume 90 80-99 fL Mean Corpuscular Hemoglobin 29 25-34 pg Mean Corpuscular Hemoglobin Concent 33 32-36 g/dL Red Cell Distribution Width 13.6 10.0-14.5 % Platelet Count 293 130-400 10^3/uL Mean Platelet Volume 9.8 9.0-12.2 fL Immature Granulocyte % (Auto) 3 % Neutrophils (%) (Auto) 62 42-75 % Lymphocytes (%) (Auto) 19 12-44 % Monocytes (%) (Auto) 9 0-12 % Eosinophils (%) (Auto) 6 0-10 % Basophils (%) (Auto) 1 0-10 % Neutrophils # (Auto) 4.7 1.8-7.8 10^3/uL Lymphocytes # (Auto) 1.5 1.0-4.0 10^3/uL Monocytes # (Auto) 0.7 0.0-1.0 10^3/uL Eosinophils # (Auto) 0.5 H 0.0-0.3 10^3/uL Basophils # (Auto) 0.1 0.0-0.1 10^3/uL Immature Granulocyte # (Auto) 0.2 H 0.0-0.1 10^3/uL Sodium Level 142 135-145 MMOL/L Potassium Level 4.5 3.6-5.0 MMOL/L Chloride Level 111 H 98-107 MMOL/L Carbon Dioxide Level 20 L 21-32 MMOL/L Anion Gap 11 5-14 MMOL/L Blood Urea Nitrogen 24 H 7-18 MG/DL Creatinine 1.33 H 0.60-1.30 MG/DL Estimat Glomerular Filtration Rate 56 BUN/Creatinine Ratio 18 Glucose Level 136 H 70-105 MG/DL Calcium Level 8.5 8.5-10.1 MG/DL Corrected Calcium 9.3 8.5-10.1 MG/DL Magnesium Level 1.8 1.6-2.4 MG/DL Total Bilirubin 0.2 0.1-1.0 MG/DL Aspartate Amino Transf (AST/SGOT) 22 5-34 U/L Alanine Aminotransferase (ALT/SGPT) 31 0-55 U/L Alkaline Phosphatase 150 H 40-136 U/L Total Protein 5.9 L 6.4-8.2 GM/DL Albumin 3.0 L 3.2-4.5 GM/DL Test 07/08/22 06:47 Range/Units Glucometer 121 H 70-110 MG/DL Diagnosis/Problems Diagnosis/Problems (1) Paroxysmal atrial fibrillation Assessment & Plan: He remains in sinus rhythm on amiodarone. He is on Xarelto for stroke prophylaxis. The amiodarone will need to be tapered following discharge. I will lower the dose at this time. I have ordered for the staff to get him a follow-up visit with Dr. Ramirez in the near future. (2) Primary hypertension Assessment & Plan: Blood pressure has been intermittently elevated on metoprolol succinate. If this persists, I will plan to increase the dose. Beta -blockers can sometimes also help with essential tremor. (3) Mixed hyperlipidemia Assessment & Plan: Continue statin medication. (4) Mitral regurgitation Assessment & Plan: His transesophageal echocardiogram showed mild mitral regurgitation. This should not be causing symptoms but we may want to follow this in the long-term. (5) Acute kidney injury superimposed on chronic kidney disease Assessment & Plan: His renal function has improved since admission. (6) Tremor of face and hands Status: Chronic Assessment & Plan: Etiology unclear. He denies alcohol or other drug abuse. I placed him on beta-anastasia for the atrial fibrillation and hypertension. Sometimes this will help with tremor if it is due to essential tremor. GUICHO SOMMERS JR, MD Jul 08, 2022 10:39
[2022-07-08 11:31] VITALS: BP 124/70
[2022-07-08 16:00] VITALS: BP 131/68
[2022-07-08] MEDS: RIVAROXABAN 20 MG TABLET (XARELTO) PO SCH (16:30)
[2022-07-08] MEDS: FAMOTIDINE 20 MG (PEPCID) TABLET PO SCH (16:30)
[2022-07-08] MEDS: ALLOPURINOL 100 MG (ZYLOPRIM) TAB PO SCH (16:30)
[2022-07-08 20:00] VITALS: BP 136/73
[2022-07-08] MEDS: OLANZapine 5 MG ODT (ZyPREXA ZYDIS) PO SCH (21:06)
[2022-07-08 23:31] VITALS: BP 133/61
[2022-07-09 03:52] VITALS: BP 148/66
[2022-07-09] MEDS: MULTIVIT W/MINERALS TAB (THERAGRAN M) PO SCH (05:42)
[2022-07-09 05:46] LABS: BASOPHILS # (AUTO) 0.1 10^3/uL (0.0-0.1); BASOPHILS % (AUTO) 1 % (0-10); EOSINOPHILS # (AUTO) 0.5 10^3/uL (0.0-0.3); EOSINOPHILS % (AUTO) 5 % (0-10); HEMATOCRIT 34 % (40-54); HEMOGLOBIN 11.2 g/dL (13.3-17.7); LYMPHOCYTES # (AUTO) 1.4 10^3/uL (1.0-4.0); LYMPHOCYTES % (AUTO) 15 % (12-44); MEAN CORPUSCULAR HEMOGLOBIN 30 pg (25-34); MEAN CORPUSCULAR HGB CONC 33 g/dL (32-36); MEAN CORPUSCULAR VOLUME 90 fL (80-99); MEAN PLATELET VOLUME 9.7 fL (9.0-12.2); MONOCYTES # (AUTO) 0.8 10^3/uL (0.0-1.0); MONOCYTES % (AUTO) 8 % (0-12); NEUTROPHILS # (AUTO) 6.5 10^3/uL (1.8-7.8); NEUTROPHILS % (AUTO) 69 % (42-75); PLATELET COUNT 363 10^3/uL (130-400); WHITE BLOOD COUNT 9.5 10^3/uL (4.3-11.0)
[2022-07-09 06:20] LABS: ALBUMIN 3.3 GM/DL (3.2-4.5); BILIRUBIN,TOTAL 0.2 MG/DL (0.1-1.0); CALCIUM 8.9 MG/DL (8.5-10.1); CREATININE SERUM 1.45 MG/DL (0.60-1.30); MAGNESIUM 1.9 MG/DL (1.6-2.4); POTASSIUM 4.5 MMOL/L (3.6-5.0); TOTAL PROTEIN 6.2 GM/DL (6.4-8.2)
--- NOTE | 2022-07-09 06:57 | Progress Note - Hospitalist ---
Subjective HPI/CC On Admission Date Seen by Provider: Jul 09, 2022 Time Seen by Provider: 11:00 Subjective/Events-last exam No major issues Supportive care continues Sleeps well Review of Systems General: Fatigue, Malaise Objective Exam Vital Signs Vital Signs Date Time Temp Pulse Resp B/P (MAP) Pulse Ox O2 Delivery O2 Flow Rate FiO2 07/09/22 16:19 36.0 54 16 121/71 (88) 96 Room Air 07/08/22 08:05 0.00 Capillary Refill : Less Than 3 Seconds General Appearance: No Apparent Distress, WD/WN, Chronically ill Respiratory: Lungs Clear, Normal Breath Sounds Cardiovascular: Regular Rate, Rhythm Neurologic/Psychiatric: Alert, Oriented x3, No Motor/Sensory Deficits, Normal Mood/Affect Results/Procedures Lab Laboratory Tests 07/09/22 05:38 Patient resulted labs reviewed. Assessment/Plan Assessment and Plan Assess & Plan/Chief Complaint (1) Atrial fibrillation with RVR Status: Acute Assessment & Plan: Resolved following electrical cardioversion at this time. Consulted with cardiology, patient taking PO amiodarone, being managed by cardiology. (2) Acute kidney injury Status: Acute Assessment & Plan: BUN and creatinine improving from previous values with hydration. Patient recommended to continue pushing fluids. 07/07 BUN and creatinine continue improving with good hydration here. (3) HTN (hypertension) Status: Chronic Assessment & Plan: BPs have stabilized within normal levels on home medications. Qualifiers: Qualified Codes: I10 - Essential (primary) hypertension (4) Diabetes mellitus, type 2 Status: Chronic Assessment & Plan: Hold home glipizide with ROMANA. Sliding scale insulin, diabetic diet. Qualifiers: Qualified Codes: E11.69 - Type 2 diabetes mellitus with other specified complication (5) Urinary retention Status: Acute Assessment & Plan: Home tamsulosin restarted. Scott catheter in place. 07/07 Scott catheter removed on 07/06 evening, and patient has full control of his urination at this time without concern. (6) Mood disorder Status: Chronic Assessment & Plan: Uncertain diagnosis, home med list has olanzepine, but also does include donepezil raising question of dementia. Donepezil held due to interaction with amiodarone. (7) DVT prophylaxis Status: Resolved Assessment & Plan: On treatment dose rivaroxaban for a fib (8) Homelessness Status: Chronic Assessment & Plan: clinical services director consulted, was released from [facility] not long ago, working with [facility] on getting medications, but was sent to hospital prior. Social work here is looking for appropriate [place] [facility] facility to place the patient in. (9) Tremor of face and hands Status: Chronic Assessment & Plan: Continue to monitor for possible worsening of the tremor. Primary differential at this time is essential tremor, consider Parkinson's Disease, physiologic tremor. DUY SHAH DO Jul 09, 2022 06:57
[2022-07-09 07:42] VITALS: BP 118/62
[2022-07-09] MEDS: PANTOPRAZOLE 40 MG (PROTONIX) TAB PO SCH (08:52)
[2022-07-09] MEDS: TAMSULOSIN 0.4 MG (FLOMAX) CAP PO SCH ×2 (08:52→19:58)
[2022-07-09] MEDS: ASPIRIN E.C. 81 MG (ECOTRIN) TAB PO SCH (08:52)
[2022-07-09] MEDS: meTOproloL SUCCINATE 50 MG (TOPROL XL) TAB PO SCH (08:52)
[2022-07-09] MEDS: AMIODARONE 200 MG (CORDARONE) TAB PO SCH ×2 (08:52→19:58)
[2022-07-09] MEDS: MICONAZOLE 2% POWDER (DESENEX AF) 90 GM TOP SCH ×2 (08:53→19:59)
[2022-07-09 11:34] VITALS: BP 126/76
--- NOTE | 2022-07-09 11:42 | Cardiology Progress Note ---
Progress Note-Cardiology Events since last exam Date Seen by Provider: Jul 09, 2022 Time Seen by Provider: 11:41 Events since last exam We are following him due to atrial fibrillation. He denies chest discomfort, dyspnea, palpitations, syncope, or ankle edema. Certain portions of this document may have been dictated utilizing voice recognition technology. Inherent to this technology, typographical and gram matical errors may exist. As much as I am diligent to identify and correct these mistakes, some errors may remain in the document. Vitals Last set of Vitals Signs Vital Signs 07/08/22 07/09/22 08:05 11:34 Temp 36.6 Pulse 63 Resp 20 B/P (MAP) 126/76 (93) Pulse Ox 97 O2 Delivery Room Air O2 Flow Rate 0.00 Labs Labs Laboratory Tests 07/09/22 05:38 Exam Vital Signs Vital Signs Date Time Temp Pulse Resp B/P (MAP) Pulse Ox O2 Delivery O2 Flow Rate FiO2 07/09/22 11:34 36.6 63 20 126/76 (93) 97 Room Air 07/08/22 08:05 0.00 Physical Exam General: Alert. No acute distress. He is obese. Eye: No xanthelasma. HENT: Normocephalic. Neck: Jugular venous pressure does not appear elevated. Respiratory: Lungs are clear to auscultation. Respirations are non-labored. Breath sounds are equal. Symmetrical chest wall expansion. Cardiovascular: Normal rate. Regular rhythm. No murmur. No gallop. No edema. Gastrointestinal: Soft. Normal bowel sounds. Skin: Warm. Dry. Neurologic: Alert and oriented to person, place, time. Cranial nerves 3-11 grossly intact. Psychiatric: Cooperative. Appropriate mood & affect. Labs Laboratory Tests Test 07/08/22 16:14 07/08/22 20:08 07/09/22 05:27 07/09/22 05:38 Range/Units Glucometer 161 H 195 H 128 H 70-110 MG/DL White Blood Count 9.5 4.3-11.0 10^3/uL Red Blood Count 3.80 L 4.30-5.52 10^6/uL Hemoglobin 11.2 L 13.3-17.7 g/dL Hematocrit 34 L 40-54 % Mean Corpuscular Volume 90 80-99 fL Mean Corpuscular Hemoglobin 30 25-34 pg Mean Corpuscular Hemoglobin Concent 33 32-36 g/dL Red Cell Distribution Width 13.5 10.0-14.5 % Platelet Count 363 130-400 10^3/uL Mean Platelet Volume 9.7 9.0-12.2 fL Immature Granulocyte % (Auto) 2 % Neutrophils (%) (Auto) 69 42-75 % Lymphocytes (%) (Auto) 15 12-44 % Monocytes (%) (Auto) 8 0-12 % Eosinophils (%) (Auto) 5 0-10 % Basophils (%) (Auto) 1 0-10 % Neutrophils # (Auto) 6.5 1.8-7.8 10^3/uL Lymphocytes # (Auto) 1.4 1.0-4.0 10^3/uL Monocytes # (Auto) 0.8 0.0-1.0 10^3/uL Eosinophils # (Auto) 0.5 H 0.0-0.3 10^3/uL Basophils # (Auto) 0.1 0.0-0.1 10^3/uL Immature Granulocyte # (Auto) 0.2 H 0.0-0.1 10^3/uL Sodium Level 140 135-145 MMOL/L Potassium Level 4.5 3.6-5.0 MMOL/L Chloride Level 109 H 98-107 MMOL/L Carbon Dioxide Level 21 21-32 MMOL/L Anion Gap 10 5-14 MMOL/L Blood Urea Nitrogen 27 H 7-18 MG/DL Creatinine 1.45 H 0.60-1.30 MG/DL Estimat Glomerular Filtration Rate 51 BUN/Creatinine Ratio 19 Glucose Level 141 H 70-105 MG/DL Calcium Level 8.9 8.5-10.1 MG/DL Corrected Calcium 9.5 8.5-10.1 MG/DL Magnesium Level 1.9 1.6-2.4 MG/DL Total Bilirubin 0.2 0.1-1.0 MG/DL Aspartate Amino Transf (AST/SGOT) 18 5-34 U/L Alanine Aminotransferase (ALT/SGPT) 33 0-55 U/L Alkaline Phosphatase 165 H 40-136 U/L Total Protein 6.2 L 6.4-8.2 GM/DL Albumin 3.3 3.2-4.5 GM/DL Test 07/09/22 10:49 Range/Units Glucometer 140 H 70-110 MG/DL Diagnosis/Problems Diagnosis/Problems (1) Paroxysmal atrial fibrillation Assessment & Plan: He remains in sinus rhythm on amiodarone. He is on Xarelto for stroke prophylaxis. The amiodarone will need to be tapered following discharge. I lowered the dose of amiodarone on 07/08 to 200 mg twice daily. I have ordered for the staff to get him a follow-up visit with Dr. Ramirez in the near future. (2) Primary hypertension Assessment & Plan: Blood pressure has been intermittently elevated on metoprolol succinate but improving. (3) Mixed hyperlipidemia Assessment & Plan: Continue statin medication. (4) Mitral regurgitation Assessment & Plan: His transesophageal echocardiogram showed mild mitral regu rgitation. This should not be causing symptoms but we may want to follow this in the long-term. (5) Acute kidney injury superimposed on chronic kidney disease Assessment & Plan: His renal function had improved since admission although has trended downward on 07/08 and 07/09. We will continue to monitor. (6) Tremor of face and hands Status: Chronic Assessment & Plan: Etiology unclear. He denies alcohol or other drug abuse. I placed him on beta-anastasia for the atrial fibrillation and hypertension. Sometimes this will help with tremor if it is due to essential tremor. GUICHO SOMMERS JR, MD Jul 09, 2022 11:42
[2022-07-09 16:19] VITALS: BP 121/71
[2022-07-09] MEDS: ALLOPURINOL 100 MG (ZYLOPRIM) TAB PO SCH (17:30)
[2022-07-09] MEDS: FAMOTIDINE 20 MG (PEPCID) TABLET PO SCH (17:30)
[2022-07-09] MEDS: RIVAROXABAN 20 MG TABLET (XARELTO) PO SCH (17:30)
[2022-07-09] MEDS: OLANZapine 5 MG ODT (ZyPREXA ZYDIS) PO SCH (19:59)
[2022-07-09 20:38] VITALS: BP 126/76
[2022-07-10 00:03] VITALS: BP 127/60
[2022-07-10 04:00] VITALS: BP 115/68
[2022-07-10 05:35] LABS: BASOPHILS # (AUTO) 0.1 10^3/uL (0.0-0.1); BASOPHILS % (AUTO) 1 % (0-10); EOSINOPHILS # (AUTO) 0.5 10^3/uL (0.0-0.3); EOSINOPHILS % (AUTO) 5 % (0-10); HEMATOCRIT 33 % (40-54); HEMOGLOBIN 10.9 g/dL (13.3-17.7); LYMPHOCYTES # (AUTO) 1.7 10^3/uL (1.0-4.0); LYMPHOCYTES % (AUTO) 20 % (12-44); MEAN CORPUSCULAR HEMOGLOBIN 30 pg (25-34); MEAN CORPUSCULAR HGB CONC 33 g/dL (32-36); MEAN CORPUSCULAR VOLUME 90 fL (80-99); MEAN PLATELET VOLUME 9.8 fL (9.0-12.2); MONOCYTES # (AUTO) 0.9 10^3/uL (0.0-1.0); MONOCYTES % (AUTO) 11 % (0-12); NEUTROPHILS # (AUTO) 5.3 10^3/uL (1.8-7.8); NEUTROPHILS % (AUTO) 62 % (42-75); PLATELET COUNT 353 10^3/uL (130-400); WHITE BLOOD COUNT 8.6 10^3/uL (4.3-11.0)
[2022-07-10] MEDS: MULTIVIT W/MINERALS TAB (THERAGRAN M) PO SCH (05:37)
[2022-07-10 05:51] LABS: ALBUMIN 3.2 GM/DL (3.2-4.5); BILIRUBIN,TOTAL 0.2 MG/DL (0.1-1.0); CALCIUM 8.7 MG/DL (8.5-10.1); CREATININE SERUM 1.57 MG/DL (0.60-1.30); MAGNESIUM 2.1 MG/DL (1.6-2.4); POTASSIUM 4.7 MMOL/L (3.6-5.0)
[2022-07-10 07:57] VITALS: BP 121/74
--- NOTE | 2022-07-10 08:34 | Cardiology Progress Note ---
Subjective Date Seen by Provider: Jul 10, 2022 Time Seen by Provider: 08:32 Subjective/Events-last exam No new complaints. Denies any chest pain or dyspnea. Review of Systems General: No Chills, No Night Sweats, No Fatigue, No Malaise, No Appetite, No Other HEENT: No Head Aches, No Visual Changes, No Eye Pain, No Ear Pain, No Dysphasia, No Sinus Congestion, No Post Nasal Drip, No Sore Throat, No Other Pulmonary: No Dyspnea, No Cough, No Pleuritic Chest Pain, No Other Cardiovascular: No: Chest Pain, Palpitations, Orthopnea, Paroxysmal Noc. Dyspnea, Edema, Lt Headedness, Other Objective-Cardiology Exam Last Set of Vital Signs Vital Signs 07/08/22 07/10/22 07/10/22 08:05 07:57 08:45 Temp 36.4 Pulse 70 Resp 18 B/P (MAP) 121/74 (90) Pulse Ox 94 O2 Delivery Room Air O2 Flow Rate 0.00 I&O Intake and Output 07/10/22 00:00 Intake Total 2005 ml Output Total 2150 ml Balance -145 ml Intake Oral 1705 ml IV Total 300 ml Output Urine Total 2150 ml General: Alert, Cooperative, No Acute Distress HEENT: Atraumatic Neck: Supple Lungs: Clear to Auscultation, Normal Air Movement Heart: Regular Rate, Normal S1, Normal S2, No Murmurs Abdomen: Normal Bowel Sounds, Soft, No Tenderness Extremities: No Clubbing, No Cyanosis, No Edema, Normal Pulses Skin: No Rashes Neuro: Normal Speech, Strength at 5/5 X4 Ext, Other (action tremors present to his head and bilateral upper extremities.) Psych/Mental Status: Mental Status NL, Mood NL Results Lab Laboratory Tests 07/10/22 05:19 A/P-Cardiology Admission Diagnosis Atrial fibrillation Tachycardia Sepsis Acute renal failure Assessment/Plan Paroxysmal atrial fibrillation with rapid ventricular response Status post TRES with electrical cardioversion Currently in sinus rhythm and maintaining sinus rhythm. Maintained on Cardizem, Amiodarone. Amiodarone decreased to 200mg BID on 07/08/22 Mild elevation in LFTs, improved. Dysphagia, having some difficulty with swallowing solid food. Managed by primary care physician Troponin 0.4, mildly elevated, probably type II myocardial infarction secondary to tachycardia. Underlying coronary artery disease cannot be entirely excluded Planning to evaluate stress test Acute on chronic renal failure, history of chronic renal insufficiency Renal function are better at this point, back to baseline Continue to monitor Generalized weakness and fatigue. Probably secondary to above. Supervisory-Addendum Brief Supervisory Addendum Participated in pt care: history, MDM, physical Personally performed: exam, history, MDM Care discussed with: JANEE Results interpretation: Verified all documentation Notes: Patient was seen and evaluated with Fay, examination performed, management plan was discussed, agree with the current scribed note, I made few changes to the note using Italic font Patient was seen at bedside, feeling well. I am planning to evaluate Lexiscan stress test in the morning FAY QUAN Jul 10, 2022 08:34 DUGLAS BURNHAM MD Jul 10, 2022 10:25
[2022-07-10] MEDS: MICONAZOLE 2% POWDER (DESENEX AF) 90 GM TOP SCH (08:48)
[2022-07-10] MEDS: ASPIRIN E.C. 81 MG (ECOTRIN) TAB PO SCH (08:48)
[2022-07-10] MEDS: PANTOPRAZOLE 40 MG (PROTONIX) TAB PO SCH (08:48)
[2022-07-10] MEDS: TAMSULOSIN 0.4 MG (FLOMAX) CAP PO SCH (08:48)
[2022-07-10] MEDS: meTOproloL SUCCINATE 50 MG (TOPROL XL) TAB PO SCH (08:48)
[2022-07-10] MEDS: AMIODARONE 200 MG (CORDARONE) TAB PO SCH (08:48)
--- NOTE | 2022-07-10 10:11 | Progress Note - Hospitalist ---
Subjective HPI/CC On Admission Date Seen by Provider: Jul 10, 2022 Time Seen by Provider: 09:15 Subjective/Events-last exam Patient doing well Labs improved No other concerns Awaiting intermediate placement Review of Systems General: Fatigue, Malaise Objective Exam Vital Signs Vital Signs Date Time Temp Pulse Resp B/P (MAP) Pulse Ox O2 Delivery O2 Flow Rate FiO2 07/11/22 00:54 36.9 74 16 144/79 (100) 98 Room Air 07/08/22 08:05 0.00 Capillary Refill : Less Than 3 Seconds General Appearance: No Apparent Distress, WD/WN, Chronically ill Respiratory: Lungs Clear, Normal Breath Sounds Cardiovascular: Regular Rate, Rhythm Neurologic/Psychiatric: Alert, Oriented x3 Results/Procedures Lab Laboratory Tests 07/10/22 05:19 Patient resulted labs reviewed. Assessment/Plan Assessment and Plan Assess & Plan/Chief Complaint (1) Atrial fibrillation with RVR Status: Acute Assessment & Plan: Resolved following electrical cardioversion at this time. Consulted with cardiology, patient taking PO amiodarone, being managed by cardiology. (2) Acute kidney injury Status: Acute Assessment & Plan: BUN and creatinine improving from previous values with hydration. Patient recommended to continue pushing fluids. 07/07 BUN and creatinine continue improving with good hydration here. (3) HTN (hypertension) Status: Chronic Assessment & Plan: BPs have stabilized within normal levels on home medications. Qualifiers: Qualified Codes: I10 - Essential (primary) hypertension (4) Diabetes mellitus, type 2 Status: Chronic Assessment & Plan: Hold home glipizide with ROMANA. Sliding scale insulin, diabetic diet. Qualifiers: Qualified Codes: E11.69 - Type 2 diabetes mellitus with other specified complication (5) Urinary retention Status: Acute Assessment & Plan: Home tamsulosin restarted. Scott catheter in place. 07/07 Scott catheter removed on 07/06 evening, and patient has full control of his urination at this time without concern. (6) Mood disorder Status: Chronic Assessment & Plan: Uncertain diagnosis, home med list has olanzepine, but also does include donepezil raising question of dementia. Donepezil held due to interaction with amiodarone. (7) DVT prophylaxis Status: Resolved Assessment & Plan: On treatment dose rivaroxaban for a fib (8) Homelessness Status: Chronic Assessment & Plan: pharmacy services director consulted, [facility], working with [facility] on getting medications, but was sent to hospital prior. Social work here is looking for [facility] patient in. (9) Tremor of face and hands Status: Chronic Assessment & Plan: Continue to monitor for possible worsening of the tremor. Primary differential at this time is essential tremor, consider Parkinson's Disease, physiologic tremor. DUY SHAH DO Jul 10, 2022 10:11
[2022-07-10] MEDS ORDERED: REGADENOSON 0.4 MG/5 ML SYR (LEXISCAN) IV ONE (10:30)
[2022-07-10 11:55] VITALS: BP 134/79
--- NOTE | 2022-07-10 13:54 | Occupational Ther Daily Note ---
OT Current Status-Daily Note Subjective Pt was sitting up in bed. He just finished talking to social work. He agreed to therapy exercises, but declining all ADLs at this time. Mental Status/Objective Patient Orientation: Person, Place, Situation ADL-Treatment Therapy Code Descriptions/Definitions Functional [place] Measure: 0=Not Assessed/NA 4=Minimal Assistance 1=Total Assistance 5=Supervision or Setup 2=Maximal Assistance 6=Modified [place] 3=Moderate Assistance 7=Complete IndependenceSCALE: Activities may be completed with or without assistive devices. 6-Qmfkfmqafy-ijwesox completes the activity by him/herself with no assistance from a helper. 5-Set-up or Clean-up Assistance-helper sets up or cleans up; patient completes activity. [place] assists only prior to or following the activity. 4-Supervision or Touching Assistance-helper provides verbal cues and/or touching/steadying and/or contact guard assistance as patient completes activity. Assistance may be provided throughout the activity or intermittently. 3-Partial/Moderate Assistance-helper does LESS THAN HALF the effort. [place] lifts, holds or supports trunk or limbs, but provides less than half the effort. 2-Substantial/Maximal Assistance-helper does MORE THAN HALF the effort. [place] lifts or holds trunk or limbs and provides more than half the effort. 4-Lsdimyvds-commer does ALL the effort. Patient does none of the effort to complete the activity. Or, the assistance of 2 or more helpers is required for the patient to complete the activity. If activity was not attempted, code reason: 7-Patient Refused. 9-Not Applicable-not attempted and the patient did not perform the activity before the current illness, exacerbation or injury. 10-Not Attempted due to Environmental Limitations-(lack of equipment, weather restraints, etc.). 88-Not Attempted due to Medical Conditions or Safety Concerns. Other Treatment Pt completed UE exercises in all planes 1x10 reps. He needed a rest break after every set of exercises. Pt educated on importance of completing exercises throughout the day for strengthening, endurance, and circulation, pt agreed. Pt reported that once d/c from hospital that he will go back to being homeless. He stated that he doesn't want to give any "rest home" his social security money and that he would rather be homeless. Education OT Patient Education: Correct positioning, Exercise program, Home exercise program, Purpose of tx/functional activities, Rehab process Teaching Recipient: Patient Teaching Methods: Demonstration, Discussion Response to Teaching: Verbalize Understanding, Return Demonstration OT Fpc Goals Fpc Goals Time Frame: Jul 14, 2022 Eating (QC): 6 Oral Hygiene (QC): 6 Toileting Hygiene (QC): 6 Shower/Bathe Self (QC): 6 Upper Body Dressing (QC): 6 Lower Body Dressing (QC): 6 On/Off Footwear (QC): 6 Additional Goals: 1-Demonstrate ADL Tasks, 2-Verbalize Understanding, 3- ImproveStrength/Beatrice 1=Demonstrate adherence to instructed precautions during ADL tasks. 2=Patient will verbalize/demonstrate understanding of assistive devices/modifications for ADL. 3=Patient will improve strength/tolerance for activity to enable patient to perform ADL's. OT Education/Plan Problem List/Assessment Assessment: Decreased Activ Tolerance, Decreased UE Strength Pt would benefit from short term skilled OT services in order to increase safety and independence with ADLS and functional mobility/transfers, and to improve BUE activity tolerance in order to maximize LOF for return home. Discharge Recommendations Plan/Recommendations: Continue POC Treatment Plan/Plan of Care Treatment,Training & Education: Yes Patient would benefit from OT for education, treatment and training to promote independence in ADL's, mobility, safety and/or upper extremity function for ADL's. Plan of Care: ADL Retraining, Functional Mobility, UE Funct Exercise/Act Treatment Duration: Jul 14, 2022 Frequency: 3 times per week (3-5 times per week) Estimated Hrs Per Day: .25 hour per day Agreement: Yes Rehab Potential: Fair Time Start Time: 13:36 Stop Time: 13:47 DATE: Jul 10, 2022 Total Time Billed (hr/min): 11 Billed Treatment Time 1 visit EX Nayely Sarmiento OT Jul 10, 2022 13:54
[2022-07-10 16:00] VITALS: BP 145/72
[2022-07-10] MEDS: ALLOPURINOL 100 MG (ZYLOPRIM) TAB PO SCH (17:26)
[2022-07-10] MEDS: RIVAROXABAN 20 MG TABLET (XARELTO) PO SCH (17:26)
[2022-07-10] MEDS: FAMOTIDINE 20 MG (PEPCID) TABLET PO SCH (17:26)
[2022-07-10 19:33] VITALS: BP 166/74
[2022-07-11] MEDS: OLANZapine 5 MG ODT (ZyPREXA ZYDIS) PO SCH (00:03)
[2022-07-11] MEDS: AMIODARONE 200 MG (CORDARONE) TAB PO SCH ×2 (00:03→09:38)
[2022-07-11] MEDS: TAMSULOSIN 0.4 MG (FLOMAX) CAP PO SCH ×2 (00:04→09:38)
[2022-07-11] MEDS: MICONAZOLE 2% POWDER (DESENEX AF) 90 GM TOP SCH ×2 (00:05→09:39)
[2022-07-11 00:54] VITALS: BP 144/79
[2022-07-11 04:00] VITALS: BP 136/65
--- NOTE | 2022-07-11 05:39 | Progress Note - Hospitalist ---
Subjective HPI/CC On Admission Date Seen by Provider: Jul 11, 2022 Time Seen by Provider: 09:30 Objective Exam Vital Signs Vital Signs Date Time Temp Pulse Resp B/P (MAP) Pulse Ox O2 Delivery O2 Flow Rate FiO2 07/11/22 08:17 72 16 141/79 (99) 95 Room Air 07/11/22 08:00 36.0 07/08/22 08:05 0.00 Capillary Refill : Less Than 3 Seconds Results/Procedures Lab Patient resulted labs reviewed. Assessment/Plan Assessment and Plan Assess & Plan/Chief Complaint (1) Atrial fibrillation with RVR Status: Acute Assessment & Plan: Resolved following electrical cardioversion at this time. Consulted with cardiology, patient taking PO amiodarone, being managed by cardiology. (2) Acute kidney injury Status: Acute Assessment & Plan: BUN and creatinine improving from previous values with hydration. Patient recommended to continue pushing fluids. 07/07 BUN and creatinine continue improving with good hydration here. (3) HTN (hypertension) Status: Chronic Assessment & Plan: BPs have stabilized within normal levels on home medications. Qualifiers: Qualified Codes: I10 - Essential (primary) hypertension (4) Diabetes mellitus, type 2 Status: Chronic Assessment & Plan: Hold home glipizide with ROMANA. Sliding scale insulin, diabetic diet. Qualifiers: Qualified Codes: E11.69 - Type 2 diabetes mellitus with other specified complication (5) Urinary retention Status: Acute Assessment & Plan: Home tamsulosin restarted. Scott catheter in place. 07/07 Scott catheter removed on 07/06 evening, and patient has full control of his urination at this time without concern. (6) Mood disorder Status: Chronic Assessment & Plan: Uncertain diagnosis, home med list has olanzepine, but also does include donepezil raising question of dementia. Donepezil held due to interaction with amiodarone. (7) DVT prophylaxis Status: Resolved Assessment & Plan: On treatment dose rivaroxaban for a fib (8) Homelessness Status: Chronic Assessment & Plan: financial services assistant consulted, was [facility] ago, working with [facility] on getting medications, but was sent to hospital prior. Social work here is looking for appropriate shelter facility to place the patient in. (9) Tremor of face and hands Status: Chronic Assessment & Plan: Continue to monitor for possible worsening of the tremor. Primary differential at this time is essential tremor, consider Parkinson's Disease, physiologic tremor. DUY SHAH DO Jul 11, 2022 05:39
[2022-07-11] MEDS: MULTIVIT W/MINERALS TAB (THERAGRAN M) PO SCH ×2 (06:33→09:38)
[2022-07-11] MEDS: CATHETER FLUSH 10 ML SYR IVP PRN ×2 (06:58→08:20)
[2022-07-11] MEDS ORDERED: REGADENOSON 0.4 MG/5 ML SYR (LEXISCAN) IV ONE (07:52)
[2022-07-11 08:00] VITALS: BP 143/70
[2022-07-11 08:17] VITALS: BP 141/79
--- NOTE | 2022-07-11 08:32 | Cardiology Progress Note ---
Subjective Date Seen by Provider: Jul 11, 2022 Time Seen by Provider: 08:10 Subjective/Events-last exam Patient is [facility] for stress test, denies any active chest pain Objective-Cardiology Exam Last Set of Vital Signs Vital Signs 07/11/22 12:13 Temp 36.0 Pulse 72 Resp 16 B/P (MAP) 141/79 Pulse Ox 95 O2 Delivery Room Air O2 Flow Rate 0.00 I&O Intake and Output 07/10/22 23:59 Intake Total 1810 ml Output Total 450 ml Balance 1360 ml Intake Oral 1510 ml IV Total 300 ml Output Urine Total 450 ml # Voids 2 # Bowel Movements 1 General: Alert, Cooperative, No Acute Distress HEENT: Atraumatic Neck: Supple Lungs: Clear to Auscultation, Normal Air Movement Heart: Regular Rate, Normal S1, Normal S2, No Murmurs Abdomen: Normal Bowel Sounds, Soft, No Tenderness Extremities: No Clubbing, No Cyanosis, No Edema, Normal Pulses Skin: No Rashes Neuro: Normal Speech, Strength at 5/5 X4 Ext, Other (action tremors present to his head and bilateral upper extremities.) Psych/Mental Status: Mental Status NL, Mood NL A/P-Cardiology Admission Diagnosis Atrial fibrillation Tachycardia Sepsis Acute renal failure Assessment/Plan Paroxysmal atrial fibrillation with rapid ventricular response Status post TRES with electrical cardioversion Currently in sinus rhythm and maintaining sinus rhythm. Maintained on Cardizem, Amiodarone. Amiodarone decreased to 200mg BID on 07/08/22 Mild elevation in LFTs, improved. Dysphagia, having some difficulty with swallowing solid food. Managed by primary care physician Troponin 0.4, mildly elevated, probably type II myocardial infarction secondary to tachycardia. Underlying coronary artery disease cannot be entirely excluded Evaluating stress test this morning. Acute on chronic renal failure, history of chronic renal insufficiency Renal function are better at this point, back to baseline Continue to monitor Generalized weakness and fatigue. Probably secondary to above. Patient was seen and evaluated with Fay, examination performed, management plan was discussed, agree with the current scribed note, I made few changes to the note using Italic font Patient was seen at bedside, feeling well Stress test was reviewed showing no ischemia or infarction with ejection fraction 59% Continue on current medication, okay for discharge from cardiology standpoint Supervisory-Addendum Brief Supervisory Addendum Participated in pt care: history, MDM, physical Personally performed: exam, history, MDM Care discussed with: PA Results interpretation: Verified all documentation FAY QUAN Jul 11, 2022 08:32 DUGLAS BURNHAM MD Jul 11, 2022 12:36
[2022-07-11] MEDS: PANTOPRAZOLE 40 MG (PROTONIX) TAB PO SCH (09:37)
[2022-07-11] MEDS: ASPIRIN E.C. 81 MG (ECOTRIN) TAB PO SCH (09:38)
[2022-07-11] MEDS: meTOproloL SUCCINATE 50 MG (TOPROL XL) TAB PO SCH (09:38)
--- NOTE | 2022-07-11 10:17 | Occupational Ther Daily Note ---
OT Current Status-Daily Note Subjective Pt in bed, states he had his stress test this AM, and the medicine made him want to vomit. Pt agreeable to OT tx, appears to be in a good mood, telling jokes throughout tx ADL-Treatment Therapy Code Descriptions/Definitions Functional [place] Measure: 0=Not Assessed/NA 4=Minimal Assistance 1=Total Assistance 5=Supervision or Setup 2=Maximal Assistance 6=Modified [place] 3=Moderate Assistance 7=Complete IndependenceSCALE: Activities may be completed with or without assistive devices. 2-Lgslcswchf-kpvyksk completes the activity by him/herself with no assistance from a helper. 5-Set-up or Clean-up Assistance-helper sets up or cleans up; patient completes activity. Barnhart assists only prior to or following the activity. 4-Supervision or Touching Assistance-helper provides verbal cues and/or touching/steadying and/or contact guard assistance as patient completes activity. Assistance may be provided throughout the activity or intermittently. 3-Partial/Moderate Assistance-helper does LESS THAN HALF the effort. Barnhart lifts, holds or supports trunk or limbs, but provides less than half the effort. 2-Substantial/Maximal Assistance-helper does MORE THAN HALF the effort. Barnhart lifts or holds trunk or limbs and provides more than half the effort. 2-Mlxujbluy-qwwccu does ALL the effort. Patient does none of the effort to complete the activity. Or, the assistance of 2 or more helpers is required for the patient to complete the activity. If activity was not attempted, code reason: 7-Patient Refused. 9-Not Applicable-not attempted and the patient did not perform the activity before the current illness, exacerbation or injury. 10-Not Attempted due to Environmental Limitations-(lack of equipment, weather restraints, etc.). 88-Not Attempted due to Medical Conditions or Safety Concerns. Eating (QC): 6 Other Treatment Pt in bed, HOB elevated. Pt eating breakfast. Pt able to use utensils to gather food and bring to his mouth independently. Pt able to open containers without difficulty. OT asked pt if he recalled UE exercises from yesterday, pt wasn't sure he remembered all of them. OT demo'd UE exercises for pt, encouraging him to complete exercises later in the day after he eats, he verbalized understanding. Pt declined further OT tx at this time. Post tx, pt in bed, call light in reach and all needs met. Education OT Patient Education: Correct positioning, Energy conservation, Modified ADL techniques, Progress toward Goal/Update tx plan, Purpose of tx/functional activities, Rehab process Teaching Recipient: Patient Teaching Methods: Discussion Response to Teaching: Verbalize Understanding OT Social Service Worker Goals Social Service Worker Goals Time Frame: Jul 14, 2022 Eating (QC): 6 Oral Hygiene (QC): 6 Toileting Hygiene (QC): 6 Shower/Bathe Self (QC): 6 Upper Body Dressing (QC): 6 Lower Body Dressing (QC): 6 On/Off Footwear (QC): 6 Additional Goals: 1-Demonstrate ADL Tasks, 2-Verbalize Understanding, 3- ImproveStrength/Beatrice 1=Demonstrate adherence to instructed precautions during ADL tasks. 2=Patient will verbalize/demonstrate understanding of assistive devices/modifications for ADL. 3=Patient will improve strength/tolerance for activity to enable patient to perform ADL's. OT Education/Plan Problem List/Assessment Assessment: Decreased Activ Tolerance, Decreased UE Strength, Impaired I ADL's, Impaired Self-Care Skills Pt would benefit from short term skilled OT services in order to increase safety and independence with ADLS and functional mobility/transfers, and to improve BUE activity tolerance in order to maximize LOF for return home. Discharge Recommendations Plan/Recommendations: Continue POC Treatment Plan/Plan of Care Patient would benefit from OT for education, treatment and training to promote independence in ADL's, mobility, safety and/or upper extremity function for ADL's. Plan of Care: ADL Retraining, Functional Mobility, UE Funct Exercise/Act Treatment Duration: Jul 14, 2022 Frequency: 3 times per week (3-5 times per week) Estimated Hrs Per Day: .25 hour per day Agreement: Yes Rehab Potential: Fair Time Start Time: 09:32 Stop Time: 09:42 DATE: Jul 11, 2022 Total Time Billed (hr/min): 10 Billed Treatment Time 1, ADL TIAGO JAY OT Jul 11, 2022 10:17
[2022-07-11] MEDS ORDERED: METO50TA7 PO (10:50)
[2022-07-11] MEDS ORDERED: RIVA20TA2 PO (10:50)
[2022-07-11] MEDS ORDERED: AMIO200T65 PO (10:50)
--- NOTE | 2022-07-11 10:51 | Discharge Summary ---
Discharge Summary Hospital Course Was the Problem List Reviewed?: Yes Problems/Dx: (1) Paroxysmal atrial fibrillation (2) Primary hypertension (3) Mixed hyperlipidemia (4) Mitral regurgitation (5) Acute kidney injury superimposed on chronic kidney disease (6) Tremor of face and hands Status: Chronic Hospital Course Date of Admission: Jul 03, 2022 at 14:39 Admission Diagnosis : Family Physician/Provider: No,Local Physician Date of Discharge: 07/11/22 Discharge Diagnosis: [ ] Hospital Course: Lengthy course after admitted for acute kidney injury on chronic kidney disease and atrial fibrillation. Cardiology consulted. Patient was homeless and multiple attempts were made to place him in a prison but were unsuccessful and he chose to be discharged. Olanzapine will be held due to interaction with amiodarone. Labs and Pending Lab Test: Laboratory Tests 07/10/22 11:39: Glucometer 185H 07/10/22 15:37: Glucometer 164H 07/10/22 20:09: Glucometer 198H Microbiology 07/03/22 MRSA Screen - Final, Complete MRSA not isolated 07/03/22 Blood Culture - Final, Complete No growth Home Meds Active Reported Tylenol Extra Strength (Acetaminophen) 500 Mg Tablet 1,000 Mg PO BID PRN Aspirin EC (Aspirin) 81 Mg Tablet.dr 81 Mg PO DAILY Ibuprofen 600 Mg Tablet 600 Mg PO BID PRN Multivitamin 1 Each Tablet 1 Each PO DAILY Famotidine 20 Mg Tablet 20 Mg PO 1700 Donepezil HCl 5 Mg Tablet 5 Mg PO 1700 Allopurinol 100 Mg Tablet 100 Mg PO 1700 Olanzapine 10 Mg Tablet 10 Mg PO HS Hydrochlorothiazide 12.5 Mg Tablet 12.5 Mg PO DAILY Atorvastatin Calcium 20 Mg Tablet 20 Mg PO DAILY Glipizide Xl (Glipizide) 5 Mg Tab.er.24 5 Mg PO DAILY Lisinopril 10 Mg Tablet 10 Mg PO DAILY Pantoprazole Sodium 40 Mg Tablet.dr 40 Mg PO DAILY Flomax (Tamsulosin HCl) 0.4 Mg Cap 0.4 Mg PO BID Assessment/Pt Instructions PCP in 1 week Discharge Planning: <30 minutes discharge planning Discharge Instructions Discharge Diet: No Restrictions Discharge Physical Examination Vital Signs Vital Signs Date Time Temp Pulse Resp B/P (MAP) Pulse Ox O2 Delivery O2 Flow Rate FiO2 07/11/22 08:17 72 16 141/79 (99) 95 Room Air 07/11/22 08:00 36.0 07/08/22 08:05 0.00 General Appearance: No Apparent Distress, WD/WN, Chronically ill Allergies: Coded Allergies: Penicillins (Verified Allergy, Mild, Rash, 07/03/22) Discharge Summary Date of Admission Jul 03, 2022 at 14:39 Date of Discharge Discharge Date: Jul 11, 2022 Discharge Time: 1230 Admission Diagnosis Afib with RVR Discharge Diagnosis (1) Atrial fibrillation with RVR Status: Acute Assessment & Plan: Resolved following electrical cardioversion at this time. Consulted with cardiology, patient taking PO amiodarone, being managed by cardiology. (2) Acute kidney injury Status: Acute Assessment & Plan: BUN and creatinine improving from previous values with hydration. Patient recommended to continue pushing fluids. 07/07 BUN and creatinine continue improving with good hydration here. (3) HTN (hypertension) Status: Chronic Assessment & Plan: BPs have stabilized within normal levels on home medications. Qualifiers: Qualified Codes: I10 - Essential (primary) hypertension (4) Diabetes mellitus, type 2 Status: Chronic Assessment & Plan: Hold home glipizide with ROMANA. Sliding scale insulin, diabetic diet. Qualifiers: Qualified Codes: E11.69 - Type 2 diabetes mellitus with other specified complication (5) Urinary retention Status: Acute Assessment & Plan: Home tamsulosin restarted. Scott catheter in place. 07/07 Scott catheter removed on 07/06 evening, and patient has full control of his urination at this time without concern. (6) Mood disorder Status: Chronic Assessment & Plan: Uncertain diagnosis, home med list has olanzepine, but also does include donepezil raising question of dementia. Donepezil held due to interaction with amiodarone. (7) DVT prophylaxis Status: Resolved Assessment & Plan: On treatment dose rivaroxaban for a fib (8) Homelessness Status: Chronic Assessment & Plan: marketing services specialist consulted, was released from residential not long ago, working with [facility] on getting medications, but was sent to hospital prior. Social work here is looking for appropriate longterm facility to place the patient in. (9) Tremor of face and hands Status: Chronic Assessment & Plan: Continue to monitor for possible worsening of the tremor. Primary differential at this time is essential tremor, consider Parkinson's Disease, physiologic tremor. (1) Paroxysmal atrial fibrillation Assessment & Plan: He remains in sinus rhythm on amiodarone. He is on Xarelto for stroke prophylaxis. The amiodarone will need to be tapered following discharge. I lowered the dose of amiodarone on 07/08 to 200 mg twice daily. I have ordered for the staff to get him a follow-up visit with Dr. Ramirez in the near future. (2) Primary hypertension Assessment & Plan: Blood pressure has been intermittently elevated on m etoprolol succinate but improving. (3) Mixed hyperlipidemia Assessment & Plan: Continue statin medication. (4) Mitral regurgitation Assessment & Plan: His transesophageal echocardiogram showed mild mitral regurgitation. This should not be causing symptoms but we may want to follow this in the long-term. (5) Acute kidney injury superimposed on chronic kidney disease Assessment & Plan: His renal function had improved since admission although has trended downward on 07/08 and 07/09. We will continue to monitor. (6) Tremor of face and hands Status: Chronic Assessment & Plan: Etiology unclear. He denies alcohol or other drug abuse. I placed him on beta-anastasia for the atrial fibrillation and hypertension. Sometimes this will help with tremor if it is due to essential tremor. DUY SHAH DO Jul 11, 2022 10:50
[2022-07-11 12:13] VITALS: BP 141/79
--- NOTE | 2022-07-11 12:35 | Cardiology Stress Test Report ---
Stress Test Report Date of Procedure/Referring: Date of Procedure: Jul 11, 2022 PCP No,Local Physician Admitting Physician Admitting Physician: Yaz Atwood MD Attending Physician: Julieth Zamudio DO Baseline Heart Rate: 66 Baseline Blood Pressure: Blood Pressure Systolic: 141 Blood Pressure Diastolic: 79 Baseline Vitals Vital Signs Date Time Temp Pulse Resp B/P (MAP) Pulse Ox O2 Delivery O2 Flow Rate FiO2 07/05/22 00:00 95 Room Air 07/05/22 00:00 72 20 136/61 (86) 07/05/22 00:00 37.0 07/05/22 01:52 2.00 Baseline EKG: Baseline EKG: NSR Summary After explaining the procedure to the patient, he signed a consent and then brought to the stress nuclear laboratory. Patient received 0.4 mg Lexiscan for stress test, ECG, heart rate and blood pressure were monitored continuously. Resting and stress dose of radio tracer were injected, imaging was acquired and reviewed in short axis, horizontal long axis and vertical long axis views. TID: 0.98 SSS: 5 SDS: 1 EF: 59 1. Patient tolerated Lexiscan well 2. Diaphragmatic attenuation with fixed defect involving the inferior wall, typical male pattern. No ischemia or infarction on SPECT images 3. Normal left ventricular size, ejection fraction 59% DUGLAS BURNHAM MD Jul 11, 2022 12:35
--- NOTE | 2022-07-12 13:44 | Physician Query Clarification ---
PQ-Uncertain Diagnosis Admission/Discharge Admission Date: Jul 03, 2022 at 14:39 Discharge Date: Jul 11, 2022 at 12:27 Dr. Zamudio, The medical record reflects the following clinical scenario: History/Risk Factors: Paroxysmal Atrial Fibrillation, Acute Kidney Injury, HTN w/CKD Clinical Findings: Troponin 0.4 Treatment: IV Cardizem, IV Digoxin, IV Amiodarone, IVF, Lovenox, Cardioversion Question: Is IA 2 a clinically valid diagnosis? Troponin 0.4, mildly elevated, probably type II myocardial infarction secondary to tachycardia was documented in Dr. Ramirez's consult with no further documentation in the medical record. Please document a response in Progress Note or Discharge Summary. 1. Yes, clinically valid, condition resolved. 2. No, condition ruled out. 3. Other, with explanation of clinical findings. 4. Undetermined, no explanation for clinical findings. PHYSICIAN RESPONSE Diagnosis clinically valid: Yes, Conditon resolved In responding to this query, please exercise your independent professional judgment. The purpose of this communication is to more accurately reflect the complexity of your patients condition. The fact that a question is asked does not imply that any particular answer is desired or expected. Thank you for your timely response to this clarification. Requestors name: Josephine THIS PHYSICIAN QUERY FORM IS A PERMANENT PART OF THE MEDICAL RECORD JOSEPHINE JENKINS Jul 12, 2022 13:44 DUY ZAMUDIO DO Jul 12, 2022 15:55
== END 2022-07-11 12:27 | disposition home or self-care (01) | DRG 682 ==
LOC: EDUNIT# 13:20 → ER 13:21 → ICU 14:39 → 4TH 07-05 16:33 → EDPENDDISDT 07-11 12:30
PROVIDERS: ADMIT Family Medicine; ATTEND Internal Medicine
PROC: 5A2204Z Restoration of Cardiac Rhythm, Single (ICD-10-PCS; principal; 2022-07-04)
DX: N17.9 Acute kidney failure, unspecified (principal); I21.A1 Myocardial infarction type 2; I48.0 Paroxysmal atrial fibrillation; I12.9 Hypertensive chronic kidney disease with stage 1 through stage 4 chronic kidney disease, or unspecified chronic kidney disease; E11.22 Type 2 diabetes mellitus with diabetic chronic kidney disease; N18.9 Chronic kidney disease, unspecified; Z79.84 Long term (current) use of oral hypoglycemic drugs; E11.65 Type 2 diabetes mellitus with hyperglycemia; R13.10 Dysphagia, unspecified; Z20.822 Contact with and (suspected) exposure to COVID-19; R33.9 Retention of urine, unspecified; F39 Unspecified mood [affective] disorder; E78.2 Mixed hyperlipidemia; I34.0 Nonrheumatic mitral (valve) insufficiency; R25.1 Tremor, unspecified; K21.9 Gastro-esophageal reflux disease without esophagitis; Z59.01 Sheltered homelessness; Z23 Encounter for immunization
CPT/HCPCS: 36415; 71045; 78452; 80048; 80053; 80061; 80074; 81000; 82947; 83605; 83735; 83874; 83880; 84100; 84484; 85007; 85025; 85027; 85610; 85730; 86141; 87040; 87081; 87636; 90662; 93005; 93017; 93041; 93312; 93320; 93325; 94760; 96361; 96365; 96367; 96372